=== PATIENT | male | born 1945 | race Caucasian/White ===

== ENCOUNTER 2019-05-03 08:49 | Observation (INO) | payer MEDICARE, BC ==
[2019-05-03] MEDS ORDERED: SODIUM CHLORIDE 0.9% 1,000 ML IV STA ×2 (09:12)
--- NOTE | 2019-05-03 09:16 | ED ---
Chest Pain HPI - General Chief Complaint: Chest Pain Stated Complaint: Chest Pain Time Seen by Provider: 05/03/19 08:59 Source: patient, RN notes reviewed, old records reviewed Mode of arrival: wheelchair Limitations: no limitations - History of Present Illness Initial Comments: Patient is a 73-year-old male presents emergency department today for evaluation with complaints of chest pain. He states that he can a sharp episode of chest pain this morning around 6 AM. Patient portably was having some chest pain specifically in the mornings for the past week. He did not tell his until this morning. Patient states he did take an aspirin today after he had this episode chest pain. He also recently was wearing a Holter monitor, and is scheduled for a stress test on Saturday by Dr. Miller. Patient states that upon arriving to emergency department his chest pain is diminishing at this time he rated a 0 out of 10. He also complains of some occasional shortness of breath episodes, which she just attributed to ALLERGIES. Patient states that he has had no previous personal cardiac history of stenting or CAD. Patient has a positive family history for heart disease, former smoker. - Related Data Allergies Allergy/AdvReac Type Severity Reaction Status Date / Time No Known Allergies Allergy Verified 05/03/19 08:57 Review of Systems ROS Statement: Those systems with pertinent positive or pertinent negative responses have been documented in the HPI. ROS Other: All systems not noted in ROS Statement are negative. EKG Findings - EKG Comments: EKG Findings:: Marked sinus bradycardia with PACs left axis deviation. Abnormal EKG noted. Ventricular rate of 45 bpm. UT interval 170 ms. Frustration 106 most seconds pre-QT QTc is 440/380 ms. Past Medical History Past Medical History: Cancer, Dementia, Thyroid Disorder Additional Past Medical History / Comment(s): THROAT CANCER IN PAST, BRADYCARDIA History of Any Multi-Drug Resistant Organisms: None Reported Past Surgical History: Hernia Repair Past Psychological History: No Psychological Hx Reported Smoking Status: Former smoker Past Alcohol Use History: None Reported Past Drug Use History: None Reported General Exam - General Exam Comments Initial Comments: Alert and oriented pleasant 73-year-old male. No distress. General: Well appearing, well nourished, in no distress. Oriented x 3, normal mood and affect . Patient has a history of early stage Alzheimer's disease. Patient's does answer majority of questions for him. Skin: Good turgor, no rash, unusual bruising or prominent lesions Hair: Normal texture and distribution. HEENT: Head: Normocephalic, atraumatic, no visible or palpable masses, depr essions, or scaring. Eyes: Visual acuity intact, conjunctiva clear, sclera non-icteric, EOM intact, PERRL. Ears: EACs clear, TMs translucent & cone of light visualized. hearing intact. Nose: No external lesions, mucosa non-inflamed, septum and turbinates normal Mouth: Mucous membranes moist, no mucosal lesions. Teeth/Gums: No obvious caries or periodontal disease. No gingival inflammation or significant resorption. Pharynx: Mucosa non-inflamed, no tonsillar hypertrophy or exudate Neck: Supple, without lesions, bruits, or adenopathy, thyroid non-enlarged and non-tender Heart: No cardiomegaly or thrills; regular rate and rhythm, no murmur or gallop Lungs: Clear to auscultation and percussion Abdomen: Bowel sounds normal, no tenderness, organomegaly, masses, or hernia Extremities: No amputations or deformities, cyanosis, edema or varicosities, peripheral pulses intact Musculoskeletal: Normal gait and station. No misalignment, asymmetry, crepitation, defects, tenderness, masses, effusions, decreased range of motion, instability, atrophy or abnormal strength or tone in the head, neck, spine, ribs, pelvis or extremities. Neurologic: CN 2-12 normal. Sensation to pain, touch, and proprioception normal. DTRs normal in upper and lower extremities. No pathologic reflexes. Psychiatric: Oriented X3, intact recent and remote memory, judgment and insight, normal mood and affect. Limitations: no limitations Course Vital Signs 05/03/19 08:53 Temperature 98.1 F Pulse Rate 50 L Respiratory 16 Rate Blood Pressure 150/79 O2 Sat by Pulse 96 Oximetry Chest Pain MDM - MDM 73-year-old male presents emergency department today with squeezing-like chest pain starting at 6 AM. He reports he's been having some intermittent episodes of chest pain for the past week but not severe as today's exam. He did take aspirin prior to arrival. Upon arriving to emergency department his chest pain diminished to 0 out of 10. He does have a history of bradycardia, he follows with Dr. Miller. Had a recent Holter monitor, and is scheduled for a stress test next Saturday. Patient's EKG at this time shows bradycardia, with no ST changes. He denies any dizziness or lightheadedness at this time. Denies any diaphoresis. He did complain of some mild nausea. He denies any abdominal pain. Patient's lungs are clear, abdomen soft nontender. Bradycardia rhythm noted on cardiac exam. Patient's mother does relate that he has a history of Alzheimer's disease. Chest x-rays has evidence of COPD. The patient's concern of episodic squeezing-like chest pain I will start the Patient on heparin for concern for unstable angina. Repeat cardiac enzymes will be completed. His initial troponin is negative. Patient will be admitted with consult to Dr. Miller. Discussed case with Dr. Lanza we'll discuss case with Dr. Garcia. Disposition Clinical Impression: Unstable angina, Alzheimer's dementia Disposition: ADMITTED IP TO THIS HOSP Condition: Stable Is patient prescribed a controlled substance at d/c from ED?: No Referrals: Katherine Garcia MD [Primary Care Provider] - 1-2 days Time of Disposition: 10:47
--- NOTE | 2019-05-03 09:28 | XR ---
EXAMINATION TYPE: XR chest 2V DATE OF EXAM: 05/03/2019 HISTORY: Chest Pain. REFERENCE: NONE. FINDINGS: From. Heart size upper limits of normal. The lungs are clear. Pleural space are clear. IMPRESSION: COPD.
[2019-05-03 09:40] LABS: Basophils % (A) 1 %; Eosinophils # (A) 0.3 k/uL (0-0.7); Eosinophils % (A) 7 %; HCT 41.6 % (39.0-53.0); HGB 13.5 gm/dL (13.0-17.5); Lymphocytes # (A) 1.3 k/uL (1.0-4.8); Lymphocytes % (A) 30 %; MCH 29.9 pg (25.0-35.0); MCHC 32.4 g/dL (31.0-37.0); MCV 92.2 fL (80.0-100.0); Mean Platelet Volume 7.4; Monocytes # (A) 0.4 k/uL (0-1.0); Monocytes % (A) 9 %; Neutrophils # (A) 2.2 k/uL (1.3-7.7); Neutrophils % (A) 49 %; Platelet Count 209 k/uL (150-450); RBC 4.51 m/uL (4.30-5.90); WBC 4.4 k/uL (3.8-10.6)
[2019-05-03 09:48] LABS: INR 0.9 (<1.2); Partial Thromboplastin Time 24.2 sec (22.0-30.0)
[2019-05-03 09:49] LABS: ALT 34 U/L (21-72); AST 31 U/L (17-59); African American GFR (CKD) >90 (>60 ml/min/1.73 sqM); Albumin 3.8 g/dL (3.5-5.0); Alkaline Phosphatase 86 U/L (38-126); Anion Gap 8 mmol/L; Blood Urea Nitrogen 14 mg/dL (9-20); Calcium 9.5 mg/dL (8.4-10.2); Carbon Dioxide 27 mmol/L (22-30); Chloride 106 mmol/L (98-107); Glucose 87 mg/dL (74-99); Magnesium 1.8 mg/dL (1.6-2.3); Potassium 4.3 mmol/L (3.5-5.1); Sodium 141 mmol/L (137-145); Total Protein 6.4 g/dL (6.3-8.2)
[2019-05-03 10:48] LABS: T4, Free (Free Thyroxine) 2.01 ng/dL (0.78-2.19)
[2019-05-03] MEDS ORDERED: NITROGLYCERIN SL TABS 0.4 MG TAB SUBLINGUAL PRN (10:48)
[2019-05-03] MEDS ORDERED: HEPARIN SODIUM,PORCINE 5,000 UNIT/ML 1 ML VIAL IV ONE (10:48)
[2019-05-03] MEDS ORDERED: HEPARIN SOD,PORK IN 0.45% NACL 25,000 UNIT in 0.45% NACL 1 250ML.BAG IV SCH (11:00)
[2019-05-03 19:55] VITALS: RESP 18
[2019-05-03] MEDS ORDERED: HEPARIN SODIUM,PORCINE 5,000 UNIT/ML 1 ML VIAL IV PRN (20:01)
--- NOTE | 2019-05-03 20:31 | P.HPIM ---
History of Present Illness H&P Date: 05/03/19 Chief Complaint: Chest pain This is 73 years old male who presented to the emergency department with new onset chest pain. Patient had couple episodes of brief chest pain happened on rest in the last week and was seen by braddisher who recommended Holter monitor but patient stated that as he was not accurate and eating with Holter monitor decision was made to proceed with stress test that was scheduled for next Saturday. This morning 30 a.m. patient woke up with significant chest pain located to the left breast area without radiation or nausea patient denied diaphoresis or shortness of breath got up to the bathroom with some walking inside the house where his chest pain improved and when he was discussing the pain with his around 6 AM patient started experiencing recurrent chest pain but located to the mediastinum that caused him a lot of discomfort as he me ntioned as he described it as a heaviness and somebody sitting on the chest with feeding nauseous but no radiation to the left arm or to the left jaw patient denied any shortness of breath and states after walking to his car he was pain- free but continued to the emergency department for further evaluation. Patient had significant past medical history for cardiac disease in both siblings all had coronary artery disease and early ages. Patient is former smoker who quit 2 years ago and not sure if he has history of COPD. Patient denied heavy drinking or drugs. and daughter at the bedside who stated that the patient has been recently experiencing some memory issues and was diagnosed with early dementia. Family is concerned that patient might have heart disease and would like to have immediate evaluation without delay and stress testing if possible as it was scheduled by braddisher on outpatient basis. Patient currently is denying chest pain, shortness breath, nausea, vomiting, abdominal pain, dizziness, lightheadedness or blurry vision Review of Systems All 14 systems reviewed and negative except as above Past Medical History Past Medical History: Cancer, Dementia, Thyroid Disorder Additional Past Medical History / Comment(s): THROAT CANCER IN PAST, BRADYCARDIA History of Any Multi-Drug Resistant Organisms: None Reported Past Surgical History: Hernia Repair Past Psychological History: No Psychological Hx Reported Smoking Status: Former smoker Past Alcohol Use History: None Reported Past Drug Use History: None Reported Medications and Allergies Home Medications Medication Instructions Recorded Confirmed Type Citalopram Hydrobromide [CeleXA] 20 mg PO DAILY 05/03/19 05/03/19 History Galantamine HBr [Razadyne] 4 mg PO DAILY 05/03/19 05/03/19 History Levothyroxine Sodium [Synthroid] 200 mcg PO DAILY 05/03/19 05/03/19 History Multivitamins, Thera [Multivitamin 1 tab PO DAILY 05/03/19 05/03/19 History (formulary)] Nabumetone [Relafen] 750 mg PO DAILY 05/03/19 05/03/19 History Omeprazole [PriLOSEC] 20 mg PO DAILY 05/03/19 05/03/19 History Saw Mccoy 160 mg PO DAILY 05/03/19 05/03/19 History Turmeric Root Extract [Turmeric] 1,053 mg PO DAILY 05/03/19 05/03/19 History Allergies Allergy/AdvReac Type Severity Reaction Status Date / Time No Known Allergies Allergy Verified 05/03/19 12:00 Physical Exam Vitals: Vital Signs Temp Pulse Resp BP Pulse Ox 05/03/19 19:54 55 L 18 135/77 100 05/03/19 16:05 47 L 16 143/93 96 05/03/19 13:54 66 16 146/84 98 05/03/19 12:49 48 L 14 133/122 95 05/03/19 12:30 48 L 14 133/122 95 05/03/19 12:00 53 L 15 157/89 92 L 05/03/19 11:30 46 L 15 170/94 96 05/03/19 11:00 48 L 18 141/82 98 05/03/19 10:30 44 L 7 L 152/87 97 05/03/19 10:00 45 L 12 159/123 97 05/03/19 09:30 44 L 22 177/91 98 05/03/19 09:01 96 05/03/19 08:53 98.1 F 50 L 16 150/79 96 Intake and Output 05/03/19 05/03/19 05/03/19 06:59 14:59 22:59 Intake Total 72.304 Balance 72.304 Intake: Intake, IV Titration 72.304 Amount Heparin Sod,Pork in 0.45% 72.304 NaCl 25,000 unit In 0.45 % NaCl 1 250ml.bag @ 11. 36 UNITS/KG/HR 9.996 mls/ hr IV .Q24H [facility] Rx#: [id number] Other: Weight 87.997 kg Physical exam HEENT atraumatic normocephalic. PERRLA Lungs clear to auscultation bilaterally Heart normal S1-S2 Abdomen soft no tenderness plus falls. 4 quadrant Lower extremity no edema Skin no new rash Psych alert and oriented 3 Neuro no focal deficit Results CBC & Chem 7: 05/03/19 09:16 05/03/19 09:16 Labs: Abnormal Lab Results - Last 24 Hours (Table) 05/03/19 05/03/19 Range/Units 09:16 18:26 APTT 45.1 H (22.0-30.0) sec TSH 0.183 L (0.465-4.680) mIU/L Assessment and Plan Assessment: 1. Chest pain, atypical. 2. Sinus bradycardia without evidence of block on current EKG with heart rate in the mid 40s. 3. Recurrent chest pain in 1 week 3 times. 4. Early dementia. 5. Hypothyroidism with low TSH. 6. Anxiety and depression. Plan discussed with patient and his family at the bedside where we would like to start patients on heparin drip per ER physician orders and would like to consult cardiology for further evaluation for possible stress testing in the morning as patient at intermediate risk and may benefit from chemical testing as he failed treadmill testing in the past. Consideration for cardiac catheterization to be taken by cardiology. Patient also may benefit from further evaluation for his sinus bradycardia but patient denied any symptoms related to bradycardia at this point and I would like to increase his dose of Synthroid at the time of the discharge have patient's follow-up with his primary care physician outpatient. Discharge planning based on clinical progress
[2019-05-03 20:38] VITALS: BMI 27.8
[2019-05-04 02:22] LABS: Mean Platelet Volume 7.5; Platelet Count 182 k/uL (150-450)
[2019-05-04 03:24] LABS: Cholesterol 157 mg/dL (<200); HDL Cholesterol 56 mg/dL (40-60); LDL Cholesterol,Calculated 74 mg/dL (0-99); Triglycerides 134 mg/dL (<150)
[2019-05-04 08:01] VITALS: TEMP 97.5
[2019-05-04] MEDS ORDERED: ASPIRIN 325 MG TAB PO SCH (09:00)
--- NOTE | 2019-05-04 10:41 | P.CRDCN ---
History of Present Illness History of present illness: This is a pleasant 73-year-old male past medical history significant for throat cancer, hypothyroidism, chronic sinus bradycardia and dementia. He follows in the office with Dr. Miller. We have been asked to see him in consultation secondary to chest discomfort. He states he woke up Saturday evening around 3 AM with a sharp pain in his chest that radiated across from the right to the left and lasted approximately 15 seconds. This was very brief and subsided on its own. He woke up and walked downstairs took an aspirin and was able to fall back asleep with no significant recurrence of chest discomfort. He is seen and examined resting comfortably in bed in no acute distress. He's had no further symptoms of chest discomfort. He denies radiation of the pain to the arm, back, neck or jaw. He denies associated shortness of breath, dizziness, nausea, vomiting, palpitations or diaphoresis. He is scheduled in the office to undergo stress testing on Saturday of this week. He also complains of waking up with nausea for the last couple of weeks. He did have some outpatient testing performed at [facility] and his has the reports revealing a large hiatal hernia with calcifications noted in the aorta. EKG reveals sinus bradycardia heart rate of 45. Chest x-ray is negative for an acute cardiopulmonary process with evidence of underlying COPD. Laboratory data reviewed, WBC 4.4, hemoglobin 13.5, platelets 182, sodium 141, potassium 4.3, creatinine 0.91, magnesium 1.8, cardiac enzymes negative 3, LDL 74 and TSH 0.183. He currently takes no daily cardiac medications. Most recent echocardiogram obtained in the office June 2018 revealed preserved LV systolic function. At the time of my exam: CONSTITUTIONAL: Denies fever. Denies chills. EYES: Denies blurred vision. Denies vision changes. Denies eye pain. EARS, NOSE, MOUTH & THROAT: Denies headache. Denies sore throat. Denies ear pain. CARDIOVASCULAR: Denies chest pain. Denies shortness of breath. Denies orthopnea. Denies PND. Denies palpitations. RESPIRATORY: Denies cough. GASTROINTESTINAL: Denies abdominal pain. Denies diarrhea. Denies constipation. Denies nausea. Denies vomiting. MUSCULOSKELETAL: Denies myalgias. INTEGUMENTARY: Denies pruitis. Denies rash. NEUROLOGIC: Denies numbness. Denies tingling. Denies weakness. PSYCHIATRIC: Denies anxiety. Denies depression. ENDOCRINE: Denies fatigue. Denies weight change. Denies polydipsia. Denies polyurina. GENITOURINARY: Denies burning, hematuria or urgency with micturation. HEMATOLOGIC: Denies history of anemia. Denies bleeding. Blood pressure 162/89 heart rate 55 afebrile maintaining oxygen saturation on room air GENERAL: This is a 73-year-old male in no apparent distress at the time of my examination. HEENT: Head is atraumatic, normocephalic. Pupils are equal, round. Sclerae anicteric. Conjunctivae are clear. Mucous membranes of the mouth are moist. Neck is supple. There is no jugular venous distention. No carotid bruit is heard. LUNGS: Clear to auscultation no wheezes, rales or rhonchi. No chest wall tend erness is noted on palpation or with deep breathing. HEART: Regular rate and rhythm without murmurs, rubs or gallops. S1 and S2 heard. ABDOMEN: Soft, nontender. Bowel sounds are heard. No organomegaly noted. EXTREMITIES: No evidence of peripheral edema and no calf tenderness noted. VASCULAR: Radial and dorsalis pedis pulses palpated, no evidence of clubbing. NEUROLOGIC: Patient is awake, alert and oriented x3. ASSESSMENT Chest pain, atypical for angina. An acute coronary event has been ruled out. History of throat cancer s/p radiation Hypothyroidism Hital hernia Family history of premature cardiac disease in his siblings. PLAN An acute coronary event has been ruled out. Discontinue IV heparin infusion. Increase activity and ambulation in the halls. Assess for exertional chest discomfort. If asymptomatic he may be discharged home. We have called the office and moved up his stress test to tomorrow morning at 0715. Add small dose of atorvastatin for cardio-protective purposes. Thank you kindly for this consultation. Nurse Practitioner note has been reviewed, I agree with a documented findings and plan of care. Patient was seen and examined. Past Medical History Past Medical History: Cancer, Dementia, Thyroid Disorder Additional Past Medical History / Comment(s): THROAT CANCER IN PAST, BRADYCARDIA History of Any Multi-Drug Resistant Organisms: None Reported Past Surgical History: Hernia Repair Past Anesthesia/Blood Transfusion Reactions: No Reported Reaction Smoking Status: Former smoker Medications and Allergies Home Medications Medication Instructions Recorded Confirmed Type Citalopram Hydrobromide [CeleXA] 20 mg PO DAILY 05/03/19 05/03/19 History Galantamine HBr [Razadyne] 4 mg PO DAILY 05/03/19 05/03/19 History Levothyroxine Sodium [Synthroid] 200 mcg PO DAILY 05/03/19 05/03/19 History Multivitamins, Thera [Multivitamin 1 tab PO DAILY 05/03/19 05/03/19 History (formulary)] Nabumetone [Relafen] 750 mg PO DAILY 05/03/19 05/03/19 History Omeprazole [PriLOSEC] 20 mg PO DAILY 05/03/19 05/03/19 History Saw Marshall 160 mg PO DAILY 05/03/19 05/03/19 History Turmeric Root Extract [Turmeric] 1,053 mg PO DAILY 05/03/19 05/03/19 History Allergies Allergy/AdvReac Type Severity Reaction Status Date / Time No Known Allergies Allergy Verified 05/03/19 20:31 Physical Exam Vitals: Vital Signs Temp Pulse Pulse Resp BP BP Pulse Ox 05/04/19 07:10 97.5 F L 55 L 18 162/89 99 05/04/19 03:45 97.4 F L 47 L 16 137/78 97 05/03/19 23:56 97.6 F 42 L 16 116/68 97 05/03/19 20:35 97.4 F L 47 L 16 131/80 97 05/03/19 20:27 98.1 F 55 L 18 135/77 100 05/03/19 19:54 55 L 18 135/77 100 05/03/19 16:05 47 L 16 143/93 96 05/03/19 13:54 66 16 146/84 98 05/03/19 12:49 48 L 14 133/122 95 05/03/19 12:30 48 L 14 133/122 95 05/03/19 12:00 53 L 15 157/89 92 L 05/03/19 11:30 46 L 15 170/94 96 05/03/19 11:00 48 L 18 141/82 98 05/03/19 10:30 44 L 7 L 152/87 97 05/03/19 10:00 45 L 12 159/123 97 05/03/19 09:30 44 L 22 177/91 98 05/03/19 09:01 96 05/03/19 08:53 98.1 F 50 L 16 150/79 96 Intake and Output 05/03/19 05/04/19 05/04/19 22:59 06:59 14:59 Intake Total 72.304 Balance 72.304 Intake: Intake, IV Titration 72.304 Amount Heparin Sod,Pork in 0.45% 72.304 NaCl 25,000 unit In 0.45 % NaCl 1 250ml.bag @ 11. 36 UNITS/KG/HR 9.996 mls/ hr IV .Q24H [facility] Rx#: [id number] Other: # Voids 1 Results 05/04/19 02:11 05/03/19 09:16 Cardiac Enzymes 05/03/19 05/03/19 05/03/19 Range/Units 09:16 09:16 15:15 AST 31 (17-59) U/L Troponin I <0.012 <0.012 (0.000-0.034) ng/mL 05/03/19 Range/Units 21:16 AST (17-59) U/L Troponin I <0.012 (0.000-0.034) ng/mL Coagulation 05/03/19 05/03/19 05/04/19 Range/Units 09:16 18:26 02:11 PT 10.0 (9.0-12.0) sec APTT 24.2 45.1 H 74.9 H (22.0-30.0) sec Lipids 05/04/19 Range/Units 02:11 Triglycerides 134 (<150) mg/dL Cholesterol 157 (<200) mg/dL HDL Cholesterol 56 (40-60) mg/dL CBC 05/03/19 05/04/19 Range/Units 09:16 02:11 WBC 4.4 (3.8-10.6) k/uL RBC 4.51 (4.30-5.90) m/uL Hgb 13.5 (13.0-17.5) gm/dL Hct 41.6 (39.0-53.0) % Plt Count 209 182 (150-450) k/uL Comprehensive Metabolic Panel 05/03/19 Range/Units 09:16 Sodium 141 (137-145) mmol/L Potassium 4.3 (3.5-5.1) mmol/L Chloride 106 (98-107) mmol/L Carbon Dioxide 27 (22-30) mmol/L BUN 14 (9-20) mg/dL Creatinine 0.91 (0.66-1.25) mg/dL Glucose 87 (74-99) mg/dL Calcium 9.5 (8.4-10.2) mg/dL AST 31 (17-59) U/L ALT 34 (21-72) U/L Alkaline Phosphatase 86 (38-126) U/L Total Protein 6.4 (6.3-8.2) g/dL Albumin 3.8 (3.5-5.0) g/dL Current Medications Generic Name Dose Route Start Last Admin Trade Name Freq PRN Reason Stop Dose Admin Aspirin 325 mg 05/04/19 09:00 Aspirin PO DAILY [facility] Heparin Sodium (Porcine) 0 unit 05/03/19 20:01 05/03/19 20:03 Heparin IV 2,200 unit PER PROTOCOL PRN Administration Low PTT Protocol Heparin Sodium/Sodium Chloride 250 mls @ 9.996 mls/hr 05/03/19 11:00 05/03/19 19:55 25,000 unit/ Sodium Chloride IV 13.63 units/kg/hr .Q24H [facility] 11.996 mls/hr Titration Protocol 11.36 UNITS/KG/HR Nitroglycerin 0.4 mg 05/03/19 10:48 Nitrostat SUBLINGUAL Q5M PRN Chest Pain Intake and Output 05/03/19 05/04/19 05/04/19 22:59 06:59 14:59 Intake Total 72.304 Balance 72.304 Intake: Intake, IV Titration 72.304 Amount Heparin Sod,Pork in 0.45% 72.304 NaCl 25,000 unit In 0.45 % NaCl 1 250ml.bag @ 11. 36 UNITS/KG/HR 9.996 mls/ hr IV .Q24H [facility] Rx#: [id number] Other: # Voids 1 05/04/19 02:11 05/03/19 09:16
[2019-05-04 11:31] VITALS: BP 142/85; PULSE 53
--- NOTE | 2019-05-04 12:43 | P.DS ---
Providers Date of admission: 05/03/19 10:44 Expected date of discharge: 05/04/19 Attending physician: Katherine Garcia Consults: 05/03/19 10:49 Consult Physician Urgent Consulting Provider: Latisha Miller Consult Reason/Comments: unstable angina Do you want consulting provider notified?: Yes Primary care physician: [facility] Course: This is 73 years old male who presented to the emergency department with new onset chest pain. Patient had couple episodes of brief chest pain happened on rest in the last week and was seen by spanish moss picker who recommended Holter yinka tor but patient stated that as he was not accurate and eating with Holter monitor decision was made to proceed with stress test that was scheduled for next Saturday. This morning 30 a.m. patient woke up with significant chest pain located to the left breast area without radiation or nausea patient denied diaphoresis or shortness of breath got up to the bathroom with some walking inside the house where his chest pain improved and when he was discussing the pain with his around 6 AM patient started experiencing recurrent chest pain but located to the mediastinum that caused him a lot of discomfort as he mentioned as he described it as a heaviness and somebody sitting on the chest with feeding nauseous but no radiation to the left arm or to the left jaw patient denied any shortness of breath and states after walking to his car he was pain-free but continued to the emergency department for further evaluation. Patient had significant past medical history for cardiac disease in both sibli ngs all had coronary artery disease and early ages. Patient is former smoker who quit 2 years ago and not sure if he has history of COPD. Patient denied heavy drinking or drugs. and daughter at the bedside who stated that the patient has been recently experiencing some memory issues and was diagnosed with early dementia. Family is concerned that patient might have heart disease and would like to have immediate evaluation without delay and stress testing if possible as it was scheduled by spanish moss picker on outpatient basis. Patient currently is denying chest pain, shortness breath, nausea, vomiting, abdominal pain, dizziness, lightheadedness or blurry vision. 05/04: Patient has been seen by cardiology with plan for discharge home and he has appointment tomorrow morning for a Lexiscan stress test in the office. Patient is pain-free at this time. Patient will be discharged home in stable condition. Discharge diagnoses: 1. Chest pain, atypical. 2. Sinus bradycardia without evidence of block on current EKG with heart rate in the mid 40s. 3. Recurrent chest pain in 1 week 3 times. 4. Early dementia. 5. Hypothyroidism with low TSH. 6. Underlying anxiety disorder, recurrent depression. Discharge plan: Home Impression and plan of care have been directed as dictated by the signing physician. Thuy Serrano nurse practitioner acting as scribe for signing physician. Patient Condition at Discharge: Good Plan - Discharge Summary New Discharge Prescriptions: New Atorvastatin [Lipitor] 20 mg PO DAILY #90 tablet Continue Turmeric Root Extract [Turmeric] 1,053 mg PO DAILY Multivitamins, Thera [Multivitamin (formulary)] 1 tab PO DAILY Omeprazole [PriLOSEC] 20 mg PO DAILY Nabumetone [Relafen] 750 mg PO DAILY Galantamine HBr [Razadyne] 4 mg PO DAILY Citalopram Hydrobromide [CeleXA] 20 mg PO DAILY Levothyroxine Sodium [Synthroid] 200 mcg PO DAILY Saw Neavitt 160 mg PO DAILY Discharge Medication List Citalopram Hydrobromide [CeleXA] 20 mg PO DAILY 05/03/19 [History] Galantamine HBr [Razadyne] 4 mg PO DAILY 05/03/19 [History] Levothyroxine Sodium [Synthroid] 200 mcg PO DAILY 05/03/19 [History] Multivitamins, Thera [Multivitamin (formulary)] 1 tab PO DAILY 05/03/19 [History] Nabumetone [Relafen] 750 mg PO DAILY 05/03/19 [History] Omeprazole [PriLOSEC] 20 mg PO DAILY 05/03/19 [History] Saw Neavitt 160 mg PO DAILY 05/03/19 [History] Turmeric Root Extract [Turmeric] 1,053 mg PO DAILY 05/03/19 [History] Atorvastatin [Lipitor] 20 mg PO DAILY #90 tablet 05/04/19 [Rx] Follow up Appointment(s)/Referral(s): Latisha Miller MD [STAFF PHYSICIAN] - 05/05/19 7:15 am (Stress test schedule tomorrow in the office at 0715, NPO after midnight, no caffeine after 7 pm tonight. ) Katherine Garcia MD [Primary Care Provider] - 1 Week Activity/Diet/Wound Care/Special Instructions: josue scheduled for tomorrow-- April at 7:15 at [facility]. Nothing to eat or drink after midnight tonight (05/04/19). no caffeine 12 hours prior to test. Discharge Disposition: HOME SELF-CARE
--- NOTE | 2019-05-04 18:56 | ECHOF ---
Referral Reason: MEASUREMENTS -------- HEIGHT: 180.3 cm WEIGHT: 88.0 kg BP: 162/89 IVSd: 1.2 cm (0.6 - 1.1) LVIDd: 4.9 cm (3.9 - 5.3) LVPWd: 1.2 cm (0.6 - 1.1) IVSs: 1.9 cm LVIDs: 2.6 cm LVPWs: 2.0 cm RVIDd: 3.8 cm (< 3.3) LAESV Index (A-L): 36.24 ml/m Ao Diam: 2.7 cm (2.0 - 3.7) LA Diam: 3.8 cm (2.7 - 3.8) AV Cusp: 2.2 cm (1.5 - 2.6) EPSS: 0.8 cm MV E Pelon: 0.56 m/s MV DecT: 337 ms MV A Pelon: 0.54 m/s MV E/A Ratio: 1.05 RAP: 5.00 mmHg RVSP: 25.25 mmHg MV EF SLOPE: 94.73 mm/s (70 - 150) MV EXCURSION: 15.97 mm (> 18.000) FINDINGS -------- Sinus rhythm. This was a technically good study. The left ventricular size is normal. There is mild concentric left ventricular hypertrophy. Overa ll left ventricular systolic function is normal with, an EF between 55 - 60 %. The right ventricle is mild to moderately enlarged. LA is moderately dilated 34-39 ml/m2 The right atrial size is normal. Interatrial and interventricular septum intact. The aortic valve is trileaflet and appears structurally normal. The mitral valve is normal. The mitral valve leaflets are mildly thickened. [id number] mitr al regurgitation is present. Mild tricuspid regurgitation present. There is no evidence of pulmonary hypertension. The right v entricular systolic pressure, as measured by Doppler, is 25.25mmHg. There is no pulmonic regurgitation present. The aortic root size is normal. Normal inferior vena cava with normal inspiratory collapse consistent with estimated right atrial pre ssure of 5 mmHg. There is no pericardial effusion. CONCLUSIONS -------- 1. Sinus rhythm. 2. This was a technically good study. 3. The left ventricular size is normal. 4. There is mild concentric left ventricular hypertrophy. 5. Overall left ventricular systolic function is normal with, an EF between 55 - 60 %. 6. The right ventricle is mild to moderately enlarged. 7. LA is moderately dilated 34-39 ml/m2 8. The right atrial size is normal. 9. Interatrial and interventricular septum intact. 10. The aortic valve is trileaflet and appears structurally normal. 11. The mitral valve is normal. 12. The mitral valve leaflets are mildly thickened. 13. Hkti-ub-buoqaome mitral regurgitation is present. 14. Mild tricuspid regurgitation present. 15. There is no evidence of pulmonary hypertension. 16. The right ventricular systolic pressure, as measured by Doppler, is 25.25mmHg. 17. There is no pulmonic regurgitation present. 18. The aortic root size is normal. 19. Normal inferior vena cava with normal inspiratory collapse consistent with estimated right atrial pressure of 5 mmHg. 20. There is no pericardial effusion. DIETARY AIDE: Franny Matthew RDCS
[2019-05-05] MEDS ORDERED: ASPIRIN 81 MG PO SCH (09:00)
== END 2019-05-04 13:00 | disposition home or self-care (01) ==
LOC: EC 08:49 → 1SOBS 10:44
PROVIDERS: ADMIT Family Medicine; ATTEND Family Medicine
DX: R07.89 Other chest pain (principal); R00.1 Bradycardia, unspecified; G30.0 Alzheimer's disease with early onset; F02.80 Dementia in other diseases classified elsewhere, unspecified severity, without behavioral disturbance, psychotic disturbance, mood disturbance, and anxiety; E89.0 Postprocedural hypothyroidism; F41.9 Anxiety disorder, unspecified; F33.9 Major depressive disorder, recurrent, unspecified; R11.0 Nausea; J44.9 Chronic obstructive pulmonary disease, unspecified; K44.9 Diaphragmatic hernia without obstruction or gangrene; R94.31 Abnormal electrocardiogram [ECG] [EKG]; Z79.890 Hormone replacement therapy; Z79.899 Other long term (current) drug therapy; Z79.1 Long term (current) use of non-steroidal anti-inflammatories (NSAID); Z92.3 Personal history of irradiation; Z85.819 Personal history of malignant neoplasm of unspecified site of lip, oral cavity, and pharynx; Z87.891 Personal history of nicotine dependence; Z82.49 Family history of ischemic heart disease and other diseases of the circulatory system
CPT/HCPCS: 36415; 71046; 80053; 80061; 83735; 83880; 84439; 84443; 84484; 85025; 85049; 85610; 85730; 93005; 93306; 96365; 96366; 96376; 99285

== ENCOUNTER → 2022-09-04 | Outpatient (CLI) | payer MEDICARE ==
[2022-09-04 14:18] LABS: Basophils # (A) 0.02 X 10*3/uL (0.00-0.10); Basophils % (A) 0.4 %; Eosinophils # (A) 0.27 X 10*3/uL (0.04-0.35); Eosinophils % (A) 4.9 %; HCT 38.4 % (39.6-50.0); HGB 12.6 g/dL (13.0-17.0); Immature Grans, Automated 0.2 %; Lymphocytes # (A) 2.45 X 10*3/uL (0.90-5.00); Lymphocytes % (A) 44.5 %; MCH 30.8 pg (27.0-32.0); MCHC 32.8 g/dL (32.0-37.0); MCV 93.9 fL (80.0-97.0); Mean Platelet Volume 10.8 fL (9.5-12.2); Monocytes # (A) 0.62 X 10*3/uL (0.20-1.00); Monocytes % (A) 11.3 %; NRBC Per 100 WBC 0 /100 WBCS (0.0-0.0); Neutrophils # (A) 2.14 X 10*3/uL (1.80-7.70); Neutrophils % (A) 38.7 %; Platelet Count 160 X 10*3/uL (140-440); RBC 4.09 X 10*6/uL (4.40-5.60); RDW 13.6 % (11.5-14.5); WBC 5.51 X 10*3/uL (4.50-10.00)
[2022-09-04 14:27] LABS: Appearance,Urine Clear (Clear); Bilirubin,Urine Negative (Negative); Blood,Urine Negative (Negative); Color,Urine Yellow (Yellow); Ketones,Urine Negative (Negative); Nitrite,Urine Negative (Negative); Specific Gravity,Urine 1.009 (1.001-1.030); Urobilinogen,Urine 0.2 (0.2,1.0)
[2022-09-04 14:33] LABS: African American GFR (CKD) 101.3 (60.0-200.0); Anion Gap 5.5 mmol/L (10.00-18.00); BUN/Creat Ratio 20.75 Ratio (12.00-20.00); Blood Urea Nitrogen 16.6 mg/dL (9.0-27.0); Calcium 9.4 mg/dL (8.7-10.3); Carbon Dioxide 28.5 mmol/L (20.0-27.5); Non-African American GFR(CKD) 87.4 (60.0-200.0); Potassium 4.8 mmol/L (3.5-5.5)
== END | disposition home or self-care (01) ==
LOC: LABPAT 09:39
PROVIDERS: ATTEND Urology
DX: Z01.812 Encounter for preprocedural laboratory examination (principal); N43.3 Hydrocele, unspecified; R31.29 Other microscopic hematuria
CPT/HCPCS: 80048; 81003; 85025

== ENCOUNTER 2022-09-12 09:59 | Day surgery (SDC) | payer MEDICARE ==
[2022-09-11 13:13] VITALS: BMI 24.0
--- NOTE | 2022-09-11 15:30 | P.GSHP ---
History of Present Illness H&P Date: 09/11/22 77 yo male with a left hydrocele who comes for a left hydrocelectomy. Risks and alternatives have been discussed. - Constitutional Constitutional: Denies chills, Denies fever - EENT Eyes: denies blurred vision, denies pain Ears, nose, mouth and throat: Denies headache, Denies sore throat - Cardiovascular Cardiovascular: Denies chest pain, Denies shortness of breath - Respiratory Respiratory: Denies cough, Denies 7 - Gastrointestinal Gastrointestinal: Denies abdominal pain, Denies diarrhea, Denies nausea, Denies vomiting - Genitourinary (Female) Genitourinary: Denies dysuria, Denies hematuria - Genitourinary (Male) Genitourinary: Denies dysuria, Denies hematuria - Musculoskeletal Musculoskeletal: Denies myalgias - Integumentary Integumentary: Denies pruritus, Denies rash - Neurological Neurological: Denies numbness, Denies weakness - Psychiatric Psychiatric: Denies anxiety, Denies depression - Endocrine Endocrine: Denies fatigue, Denies weight change 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-has difficulty swallowing at times, recommended thickit for fluids but refuses to use it, selvin TANGIRNAQ-no hearing aides, BRADYCARDIA History of Any Multi-Drug Resistant Organisms: None Reported Past Surgical History: Hernia Repair Additional Past Surgical History / Comment(s): tumor removed from throat,hydrocele,sreedhar cataracts Past Anesthesia/Blood Transfusion Reactions: No Reported Reaction, Motion Sickness Smoking Status: Former smoker - Past Family History Mother Family Medical History: No Reported History Medications and Allergies Home Medications Medication Instructions Recorded Confirmed Type Citalopram Hydrobromide [CeleXA] 20 mg PO QAM 05/03/19 09/11/22 History Levothyroxine Sodium [Synthroid] 250 mcg PO HS 05/03/19 09/11/22 History Turmeric Root Extract [Turmeric] 500 mg PO DAILY 05/03/19 09/11/22 History Atorvastatin [Lipitor] 20 mg PO DAILY #90 tablet 05/04/19 09/11/22 Rx Cyanocobalamin [Vitamin B-12] 500 mcg PO DAILY 09/11/22 09/11/22 History Losartan Potassium [Cozaar] 100 mg PO QAM 09/11/22 09/11/22 History Meloxicam 7.5 mg PO DAILY 09/11/22 09/11/22 History Memantine [Namenda] 10 mg PO BID 09/11/22 09/11/22 History Zinc Gluconate [Zinc] 50 mg PO DAILY 09/11/22 09/11/22 History Allergies Allergy/AdvReac Type Severity Reaction Status Date / Time No Known Allergies Allergy Verified 09/11/22 13:01 Surgical - Exam - General well developed - Eyes normal ocular movement, no icteric - ENT no hearing loss, no congestion - Neck no masses, trachea midline - Respiratory normal respiratory effort, clear to auscultation - Abdomen Abdomen: soft, non tender, no guarding, no rigid, no rebound - Genitourinary left hydrocele, large. rih - Integumentary no rash, no abnormal pigmentation - Neurologic no disoriented, no combative - Psychiatric oriented to time, oriented to person, oriented to place, speech is normal, memory intact Assessment and Plan Assessment: Impression: Left hydrocele Plan: left hydrocelectomy
[~2022-09-12 09:59] MED LIST: DEXAMETHASONE SOD PHOSPHATE 4 MG/ML 1 ML VIAL IV ONE; LACTATED RINGERS 1,000 ML IV SCH; ONDANSETRON 4 MG/2 ML VIAL IVP ONE; Pre Op ABX Message 1 EACH MISC MISCELLANE ONE; fentaNYL (PF) 50 MCG/ML 2 ML AMP IV PRN
[2022-09-12] MEDS ORDERED: LACTATED RINGERS 1,000 ML IV ONE ×2 (10:26→12:59)
[2022-09-12] MEDS ORDERED: MIDAZOLAM 2 MG/2 ML VIAL ONE (12:16)
[2022-09-12] MEDS ORDERED: GLYCOPYRROLATE 0.2 MG/ML 2 ML VIAL ONE (12:16)
[2022-09-12] MEDS ORDERED: CHLOROPROCAINE 3% 30 MG/ML 20 ML VIAL ONE (12:16)
[2022-09-12] MEDS ORDERED: fentaNYL (PF) 50 MCG/ML 2 ML AMP ONE (12:16)
--- NOTE | 2022-09-12 13:00 | P.OP ---
Date of Procedure: 09/12/22 Preoperative Diagnosis: Left hydrocele Postoperative Diagnosis: Left spermatocele Procedure(s) Performed: Left spermatocelectomy Anesthesia: spinal Surgeon: Armin Mcgrath Estimated Blood Loss (ml): 10 Pathology: other (Spermatocele sac) Condition: stable Disposition: PACU Indications for Procedure: Patient is 77. He has left scrotal fluid swelling. He wishes it to be corrected. His either spermatocele or hydrocele. He comes for surgical repair Description of Procedure: Patient brought to the operating suite. Given a spinal anesthetic. Prep and draped sterilely. The left hemiscrotum is swollen and soft consistent with a hydrocele or spermatocele. Midline scrotal incision is made. I dissect over the left testicle. The tunica vaginalis was opened and a very minimal amount of hydrocele fluid was drained thus the fluid sac seen is a multiloculated spermatocele. The spermatoceles dissected off the scrotal subcutaneous tissue off the cord and then down to the epididymis appeared epididymis was transected the. This scrotal fluid sac on the left side is delivered from the wound. I then oversew the epididymis with a 3-0 Vicryl. Any bleeding was controlled electrocautery or 3-0 chromic. The scrotum was closed with 2 layers with 3-0 chromic. The patient awake and returned recovery in good condition. Blood loss is about 10 mL.
[2022-09-12 13:47] VITALS: RESP 16; TEMP 98
[2022-09-12 14:25] VITALS: BP 172/81; PULSE 56
== END 2022-09-12 14:40 | disposition home or self-care (01) ==
LOC: OR 09:59
PROVIDERS: ATTEND Urology
DX: N43.3 Hydrocele, unspecified (principal); N43.41 Spermatocele of epididymis, single; Z87.891 Personal history of nicotine dependence; I10 Essential (primary) hypertension; E78.5 Hyperlipidemia, unspecified; E07.9 Disorder of thyroid, unspecified; F32.A Depression, unspecified; F03.90 Unspecified dementia, unspecified severity, without behavioral disturbance, psychotic disturbance, mood disturbance, and anxiety; Z79.1 Long term (current) use of non-steroidal anti-inflammatories (NSAID); Z79.890 Hormone replacement therapy; Z79.899 Other long term (current) drug therapy
CPT/HCPCS: 88302; 54840; J2400; J2250; J1100; J2405; J3010

== ENCOUNTER 2023-07-28 04:53 | Inpatient (IN) | payer MEDICARE ==
[2023-07-28] MEDS ORDERED: ACETAMINOPHEN TAB 500 MG TAB PO STA (05:04)
[2023-07-28] MEDS ORDERED: IBUPROFEN 600 MG TAB PO STA (05:04)
[2023-07-28] MEDS ORDERED: SODIUM CHLORIDE 0.9% 500 ML 500 ML IV STA (05:04)
[2023-07-28] MEDS ORDERED: SODIUM CHLORIDE 0.9% 1,000 ML IV STA (05:04)
--- NOTE | 2023-07-28 05:05 | ED ---
Nausea/Vomiting/Diarrhea HPI - General Chief complaint: Nausea/Vomiting/Diarrhea Stated complaint: N/V, Fall Time Seen by Provider: 07/28/23 04:58 Source: patient, EMS, RN notes reviewed, old records reviewed Mode of arrival: EMS Limitations: no limitations - History of Present Illness Initial comments: This is a 77-year-old male here today. Patient presents today for evaluation of weakness. Not feeling well. And a fall. Patient is found to have fever here in the ER. Patient recently has not been feeling quite well. Nausea but she took Zofran for prior to arrival. Patient May complaints currently are presenting with nausea vomiting diarrhea dizziness lightheadedness and a fall MD complaint: nausea, vomiting, diarrhea -: hour(s) Associated Abdominal Pain: No Severity: moderate Severity scale (1-10): 6 Consistency: constant Improves with: none Worsens with: none Associated Symptoms: loss of appetite, nausea/vomiting, syncope ( states he almost passed out), weakness - Related Data Home Medications Medication Instructions Recorded Confirmed Citalopram Hydrobromide [CeleXA] 30 mg PO DAILY 05/03/19 07/28/23 Memantine [Namenda] 10 mg PO BID 09/11/22 07/28/23 Cyanocobalamin (Vitamin B-12) 2,500 mcg PO DAILY 07/28/23 07/28/23 [Vitamin B-12] Levothyroxine Sodium [Synthroid] 125 mcg PO [id number] 07/28/23 07/28/23 Pantoprazole [Protonix] 40 mg PO BID 07/28/23 07/28/23 Previous Rx's Medication Instructions Recorded amLODIPine [Norvasc] 10 mg PO DAILY #30 tab 07/30/23 cefUROXime axetiL [Ceftin] 500 mg PO BID 3 Days #6 tab 07/30/23 Allergies Allergy/AdvReac Type Severity Reaction Status Date / Time No Known Allergies Allergy Verified 07/28/23 10:54 Review of Systems ROS Statement: Those systems with pertinent positive or pertinent negative responses have been documented in the HPI. ROS Other: All systems not noted in ROS Statement are negative. 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-has difficulty swallowing at times, Dr recommended thickit for fluids but refuses to use it, selvin STEBBINS-no hearing aides, BRADYCARDIA History of Any Multi-Drug Resistant Organisms: None Reported Past Surgical History: Hernia Repair Additional Past Surgical History / Comment(s): tumor removed from throat,hydrocele,sreedhar cataracts Past Anesthesia/Blood Transfusion Reactions: No Reported Reaction, Motion Sickness Past Psychological History: Depression Smoking Status: Former smoker Past Alcohol Use History: None Reported Past Drug Use History: None Reported - Past Family History Mother Family Medical History: No Reported History General Exam Limitations: no limitations General appearance: alert, in no apparent distress Head exam: Present: atraumatic, normocephalic, normal inspection Eye exam: Present: normal appearance, PERRL, EOMI. Absent: scleral icterus, conjunctival injection, periorbital swelling ENT exam: Present: normal exam, mucous membranes moist Neck exam: Present: normal inspection. Absent: tenderness, meningismus, lymphadenopathy Respiratory exam: Present: normal lung sounds bilaterally. Absent: respiratory distress, wheezes, rales, rhonchi, stridor Cardiovascular Exam: Present: regular rate, normal rhythm, normal heart sounds. Absent: systolic murmur, diastolic murmur, rubs, gallop, clicks GI/Abdominal exam: Present: soft, normal bowel sounds. Absent: distended, tenderness, guarding, rebound, rigid Extremities exam: Present: normal inspection, full ROM, normal capillary refill. Absent: tenderness, pedal edema, joint swelling, calf tenderness Back exam: Present: normal inspection Neurological exam: Present: alert, oriented X3, CN II-XII intact Psychiatric exam: Present: normal affect, normal mood Skin exam: Present: warm, dry, intact, normal color. Absent: rash Course Vital Signs 07/28/23 07/28/23 07/28/23 04:55 06:10 06:28 Temperature 101.1 F H 99.3 F Pulse Rate 79 64 Respiratory 18 18 Rate Blood Pressure 120/90 118/81 O2 Sat by Pulse 98 94 L Oximetry 07/28/23 07/28/23 07/28/23 07:21 07:30 08:00 Temperature Pulse Rate 57 L 56 L 60 Respiratory 17 17 14 Rate Blood Pressure 96/65 96/65 103/59 O2 Sat by Pulse 95 94 L 94 L Oximetry 07/28/23 07/28/23 07/28/23 08:30 09:00 09:30 Temperature Pulse Rate 61 62 57 L Respiratory 17 14 17 Rate Blood Pressure 102/68 109/47 99/61 O2 Sat by Pulse 93 L 95 94 L Oximetry - Reevaluation(s) Reevaluation #1: 07/28/23 05:55 Medical record is reviewed Reevaluation #2: 07/28/23 05:55 Patient symptoms unchanged a little no recurrent syncope and feels better with fever control Reevaluation #3: Patient informed results questions answered Reevaluation #4: 07/28/23 05:55 Was pt. sent in by a medical professional or institution (, [facility]K, SEPARATOR OPERATOR [employer], urgent care, hospital, or [place] [facility] facility...) When possible be specific @ -no Did you speak to anyone other than the patient for history (EMS, parent, family, police, friend...)? What history was obtained from this source @ -no Did you review nursing and triage notes (agree or disagree)? Why? @ -agree Are old charts reviewed (outside hosp., previous admission, EMS record, old EKG, old radiological studies, urgent care reports/EKG's, [place] [facility] records)? Report findings @ -yes Differential Diagnosis (chest pain, altered mental status, abdominal pain women, abdominal pain men, vaginal bleeding, weakness, fever, dyspnea, syncope, headache, dizziness, GI bleed, back pain, seizure, CVA, palpatations, mental health, musculoskeletal)? @ -prior EKG interpreted by me (3pts min.). @ -yes X-rays interpreted by me (1pt min.). @ -yes CT interpreted by me (1pt min.). @ -no U/S interpreted by me (1pt. min.). @ -no What testing was considered but not performed or refused? (CT, X-rays, U/S, labs)? Why? @ -none What meds were considered but not given or refused? Why? @ -none Did you discuss the management of the patient with other professionals (professionals i.e. , [employer]K, SEPARATOR OPERATOR [employer], lab, RT, psych nurse, home health care social worker, director dietetics department, teacher, armored vehicle officer, oil field caser)? Give summary @ -no Was smoking cessation discussed for >3mins.? @ -no Was critical care preformed (if so, how long)? @ -no Were there social determinants of health that impacted care today? How? (Homelessness, low income, unemployed, alcoholism, drug addiction, transportation, low edu. Level, literacy, decrease access to med. care, fdc, rehab)? @ -none Was there de-escalation of care discussed even if they declined (Discuss DNR or withdrawal of care, Hospice)? DNR status @ -no What co-morbidities impacted this encounter? (DM, HTN, Smoking, COPD, CAD, Cancer, CVA, ARF, Chemo, Hep., AIDS, mental health diagnosis, sleep apnea, morbid obesity)? @ -none Was patient admitted / discharged? Hospital course, mention meds given and route, prescriptions, significant lab abnormalities, going to OR and other pertinent info. @ - 77 male to the emergency department for evaluation of fever dizziness significant. Fever well-controlled with patient still feeling weak presenting with nausea vomiting and diarrhea complicated by fever today. Fevers improved the patient still feeling weak and dizzy especially with change of position. Patient be admitted for continued resuscitation fever control Discharge Undiagnosed new problem with uncertain prognosis? @ -no Drug Therapy requiring intensive monitoring for toxicity (Heparin, Nitro, Insulin, Cardizem)? @ -no Were any procedures done? @ -no Diagnosis/symptom? @ -Nausea vomiting diarrhea fever, dizziness Acute, or Chronic, or Acute on Chronic? @ -Acute Uncomplicated (without systemic symptoms) or Complicated (systemic symptoms)? @ -Complicated Side effects of treatment? @ -no Exacerbation, Progression, or Severe Exacerbation? @ -exacerbation Poses a threat to life or bodily function? How? (Chest pain, USA, MT, pneumonia, PE, COPD, DKA, ARF, appy, cholecystitis, CVA, Diverticulitis, Homicidal, Suicidal, threat to staff... and all critical care pts) @ -yes with extreme of age Reevaluation #5: 07/28/23 05:55 Differential Fever: Pneumonia, viral URI, endocarditis, myocarditis, pericarditis, otitis, sinusitis, peritonsillar Abscess, retropharyngeal Abscess, epiglottitis, peritonitis, appendicitis, Justina cystitis, diverticulitis, hepatitis, colitis, UTI, PID, TOA, pyelonephritis, prostatitis, epididymitis, meningitis, encephalitis, pulmonary embolism, CVA, thyroid storm, pancreatitis, adrenal crisis, cavernous sinus thrombosis, this is not meant to be an all-inclusive list. Differential Dizziness: Benign paroxysmal positional Vertigo, Menieres disease, otitis media, acoustic neuroma, vertebrobasilar insufficiency, cerebellar stroke, encephalitis, hypovolemic, arrhythmia, coronary artery syndrome, anemia, this is not meant to be an all-inclusive list - Consultations Consultation #1: Spoke with [facility] were agrees to admit this patient Medical Decision Making - Medical Decision Making 77 male to the emergency department for evaluation of fever dizziness significant. Fever well-controlled with patient still feeling weak presenting with nausea vomiting and diarrhea complicated by fever today. Fevers improved the patient still feeling weak and dizzy especially with change of position. Patient be admitted for continued resuscitation fever control - Lab Data Result diagrams: 07/29/23 07:02 07/30/23 06:07 Lab Results 07/28/23 07/28/23 07/28/23 Range/Units 05:09 05:09 05:09 WBC 10.9 H (3.8-10.6) k/uL RBC 4.53 (4.30-5.90) m/uL Hgb 14.3 (13.0-17.5) gm/dL Hct 44.0 (39.0-53.0) % MCV 97.2 (80.0-100.0) fL MCH 31.6 (25.0-35.0) pg MCHC 32.5 (31.0-37.0) g/dL RDW 14.4 (11.5-15.5) % Plt Count 147 L (150-450) k/uL MPV 8.3 Neutrophils % (Manual) 63 % Band Neuts % (Manual) 15 % Lymphocytes % (Manual) 18 % Monocytes % (Manual) 3 % Eosinophils % (Manual) 1 % Metamyelocytes % 1 % Neutrophils # (Manual) 8.50 H (1.3-7.7) k/uL Lymphocytes # (Manual) 1.96 (1.0-4.8) k/uL Monocytes # (Manual) 0.33 (0-1.0) k/uL Eosinophils # (Manual) 0.11 (0-0.7) k/uL Metamyelocytes # (Man) 0.11 H (0) k/uL Nucleated RBCs 0 (0-0) /100 WBC Manual Slide Review Performed Poikilocytosis (manual Present PT 10.1 (9.0-12.0) sec INR 1.0 (<1.2) APTT 20.5 L (22.0-30.0) sec Sodium 139 (137-145) mmol/L Potassium 4.2 (3.5-5.1) mmol/L Chloride 105 (98-107) mmol/L Carbon Dioxide 22 (22-30) mmol/L Anion Gap 12 mmol/L BUN 19 (9-20) mg/dL Creatinine 1.12 (0.66-1.25) mg/dL Est GFR (CKD-EPI)AfAm 74 (>60 ml/min/1.73 sqM) Est GFR (CKD-EPI)NonAf 64 (>60 ml/min/1.73 sqM) Glucose 144 H (74-99) mg/dL Lactic Ac Sepsis Rflx Plasma Lactic Acid Shaji (0.7-2.0) mmol/L Calcium 10.0 (8.4-10.2) mg/dL Phosphorus 4.1 (2.5-4.5) mg/dL Magnesium 1.8 (1.6-2.3) mg/dL Total Bilirubin 1.6 H (0.2-1.3) mg/dL AST 64 H (17-59) U/L ALT 37 (4-49) U/L Alkaline Phosphatase 119 (38-126) U/L Troponin I (0.000-0.034) ng/mL C-Reactive Protein <0.5 (<1.0) mg/dL Total Protein 7.2 (6.3-8.2) g/dL Albumin 4.5 (3.5-5.0) g/dL Lipase (23-300) U/L TSH 23.700 H (0.465-4.680) mIU/L Urine Color Urine Appearance (Clear) Urine pH (5.0-8.0) Ur Specific [place] (1.001-1.035) Urine Protein (Negative) Urine Glucose (UA) (Negative) Urine Ketones (Negative) Urine Blood (Negative) Urine Nitrite (Negative) Urine Bilirubin (Negative) Urine Urobilinogen (<2.0) mg/dL Ur Leukocyte Esterase (Negative) Urine RBC (0-5) /hpf Urine WBC (0-5) /hpf Ur Squamous Epith Cells (0-4) /hpf Hyaline Casts (0-2) /lpf Urine Mucus (None) /hpf Influenza Type A (PCR) (Not Detectd) Influenza Type B (PCR) (Not Detectd) RSV (PCR) (Not Detectd) SARS-CoV-2 (PCR) (Not Detectd) 07/28/23 07/28/23 07/28/23 Range/Units 05:09 05:09 05:09 WBC (3.8-10.6) k/uL RBC (4.30-5.90) m/uL Hgb (13.0-17.5) gm/dL Hct (39.0-53.0) % MCV (80.0-100.0) fL MCH (25.0-35.0) pg MCHC (31.0-37.0) g/dL RDW (11.5-15.5) % Plt Count (150-450) k/uL MPV Neutrophils % (Manual) % Band Neuts % (Manual) % Lymphocytes % (Manual) % Monocytes % (Manual) % Eosinophils % (Manual) % Metamyelocytes % % Neutrophils # (Manual) (1.3-7.7) k/uL Lymphocytes # (Manual) (1.0-4.8) k/uL Monocytes # (Manual) (0-1.0) k/uL Eosinophils # (Manual) (0-0.7) k/uL Metamyelocytes # (Man) (0) k/uL Nucleated RBCs (0-0) /100 WBC Manual Slide Review Poikilocytosis (manual PT (9.0-12.0) sec INR (<1.2) APTT (22.0-30.0) sec Sodium (137-145) mmol/L Potassium (3.5-5.1) mmol/L Chloride (98-107) mmol/L Carbon Dioxide (22-30) mmol/L Anion Gap mmol/L BUN (9-20) mg/dL Creatinine (0.66-1.25) mg/dL Est GFR (CKD-EPI)AfAm (>60 ml/min/1.73 sqM) Est GFR (CKD-EPI)NonAf (>60 ml/min/1.73 sqM) Glucose (74-99) mg/dL Lactic Ac Sepsis Rflx Plasma Lactic Acid Shaji 2.3 H* (0.7-2.0) mmol/L Calcium (8.4-10.2) mg/dL Phosphorus (2.5-4.5) mg/dL Magnesium (1.6-2.3) mg/dL Total Bilirubin (0.2-1.3) mg/dL AST (17-59) U/L ALT (4-49) U/L Alkaline Phosphatase (38-126) U/L Troponin I <0.012 (0.000-0.034) ng/mL C-Reactive Protein (<1.0) mg/dL Total Protein (6.3-8.2) g/dL Albumin (3.5-5.0) g/dL Lipase 155 (23-300) U/L TSH (0.465-4.680) mIU/L Urine Color Urine Appearance (Clear) Urine pH (5.0-8.0) Ur Specific [place] (1.001-1.035) Urine Protein (Negative) Urine Glucose (UA) (Negative) Urine Ketones (Negative) Urine Blood (Negative) Urine Nitrite (Negative) Urine Bilirubin (Negative) Urine Urobilinogen (<2.0) mg/dL Ur Leukocyte Esterase (Negative) Urine RBC (0-5) /hpf Urine WBC (0-5) /hpf Ur Squamous Epith Cells (0-4) /hpf Hyaline Casts (0-2) /lpf Urine Mucus (None) /hpf Influenza Type A (PCR) (Not Detectd) Influenza Type B (PCR) (Not Detectd) RSV (PCR) (Not Detectd) SARS-CoV-2 (PCR) (Not Detectd) 07/28/23 07/28/23 07/28/23 Range/Units 05:11 05:32 06:57 WBC (3.8-10.6) k/uL RBC (4.30-5.90) m/uL Hgb (13.0-17.5) gm/dL Hct (39.0-53.0) % MCV (80.0-100.0) fL MCH (25.0-35.0) pg MCHC (31.0-37.0) g/dL RDW (11.5-15.5) % Plt Count (150-450) k/uL MPV Neutrophils % (Manual) % Band Neuts % (Manual) % Lymphocytes % (Manual) % Monocytes % (Manual) % Eosinophils % (Manual) % Metamyelocytes % % Neutrophils # (Manual) (1.3-7.7) k/uL Lymphocytes # (Manual) (1.0-4.8) k/uL Monocytes # (Manual) (0-1.0) k/uL Eosinophils # (Manual) (0-0.7) k/uL Metamyelocytes # (Man) (0) k/uL Nucleated RBCs (0-0) /100 WBC Manual Slide Review Poikilocytosis (manual PT (9.0-12.0) sec INR (<1.2) APTT (22.0-30.0) sec Sodium (137-145) mmol/L Potassium (3.5-5.1) mmol/L Chloride (98-107) mmol/L Carbon Dioxide (22-30) mmol/L Anion Gap mmol/L BUN (9-20) mg/dL Creatinine (0.66-1.25) mg/dL Est GFR (CKD-EPI)AfAm (>60 ml/min/1.73 sqM) Est GFR (CKD-EPI)NonAf (>60 ml/min/1.73 sqM) Glucose (74-99) mg/dL Lactic Ac Sepsis Rflx Y Plasma Lactic Acid Shaji (0.7-2.0) mmol/L Calcium (8.4-10.2) mg/dL Phosphorus (2.5-4.5) mg/dL Magnesium (1.6-2.3) mg/dL Total Bilirubin (0.2-1.3) mg/dL AST (17-59) U/L ALT (4-49) U/L Alkaline Phosphatase (38-126) U/L Troponin I (0.000-0.034) ng/mL C-Reactive Protein (<1.0) mg/dL Total Protein (6.3-8.2) g/dL Albumin (3.5-5.0) g/dL Lipase (23-300) U/L TSH (0.465-4.680) mIU/L Urine Color Yellow Urine Appearance Cloudy (Clear) Urine pH 5.0 (5.0-8.0) Ur Specific [place] 1.022 (1.001-1.035) Urine Protein 1+ H (Negative) Urine Glucose (UA) Negative (Negative) Urine Ketones Negative (Negative) Urine Blood Negative (Negative) Urine Nitrite Negative (Negative) Urine Bilirubin 1+ H (Negative) Urine Urobilinogen 2.0 (<2.0) mg/dL Ur Leukocyte Esterase Trace H (Negative) Urine RBC 1 (0-5) /hpf Urine WBC 6 H (0-5) /hpf Ur Squamous Epith Cells <1 (0-4) /hpf Hyaline Casts 55 H (0-2) /lpf Urine Mucus Many H (None) /hpf Influenza Type A (PCR) Not Detected (Not Detectd) Influenza Type B (PCR) Not Detected (Not Detectd) RSV (PCR) Not Detected (Not Detectd) SARS-CoV-2 (PCR) Not Detected (Not Detectd) 07/28/23 Range/Units 07:53 WBC (3.8-10.6) k/uL RBC (4.30-5.90) m/uL Hgb (13.0-17.5) gm/dL Hct (39.0-53.0) % MCV (80.0-100.0) fL MCH (25.0-35.0) pg MCHC (31.0-37.0) g/dL RDW (11.5-15.5) % Plt Count (150-450) k/uL MPV Neutrophils % (Manual) % Band Neuts % (Manual) % Lymphocytes % (Manual) % Monocytes % (Manual) % Eosinophils % (Manual) % Metamyelocytes % % Neutrophils # (Manual) (1.3-7.7) k/uL Lymphocytes # (Manual) (1.0-4.8) k/uL Monocytes # (Manual) (0-1.0) k/uL Eosinophils # (Manual) (0-0.7) k/uL Metamyelocytes # (Man) (0) k/uL Nucleated RBCs (0-0) /100 WBC Manual Slide Review Poikilocytosis (manual PT (9.0-12.0) sec INR (<1.2) APTT (22.0-30.0) sec Sodium (137-145) mmol/L Potassium (3.5-5.1) mmol/L Chloride (98-107) mmol/L Carbon Dioxide (22-30) mmol/L Anion Gap mmol/L BUN (9-20) mg/dL Creatinine (0.66-1.25) mg/dL Est GFR (CKD-EPI)AfAm (>60 ml/min/1.73 sqM) Est GFR (CKD-EPI)NonAf (>60 ml/min/1.73 sqM) Glucose (74-99) mg/dL Lactic Ac Sepsis Rflx Plasma Lactic Acid Shaji 1.3 (0.7-2.0) mmol/L Calcium (8.4-10.2) mg/dL Phosphorus (2.5-4.5) mg/dL Magnesium (1.6-2.3) mg/dL Total Bilirubin (0.2-1.3) mg/dL AST (17-59) U/L ALT (4-49) U/L Alkaline Phosphatase (38-126) U/L Troponin I (0.000-0.034) ng/mL C-Reactive Protein (<1.0) mg/dL Total Protein (6.3-8.2) g/dL Albumin (3.5-5.0) g/dL Lipase (23-300) U/L TSH (0.465-4.680) mIU/L Urine Color Urine Appearance (Clear) Urine pH (5.0-8.0) Ur Specific [place] (1.001-1.035) Urine Protein (Negative) Urine Glucose (UA) (Negative) Urine Ketones (Negative) Urine Blood (Negative) Urine Nitrite (Negative) Urine Bilirubin (Negative) Urine Urobilinogen (<2.0) mg/dL Ur Leukocyte Esterase (Negative) Urine RBC (0-5) /hpf Urine WBC (0-5) /hpf Ur Squamous Epith Cells (0-4) /hpf Hyaline Casts (0-2) /lpf Urine Mucus (None) /hpf Influenza Type A (PCR) (Not Detectd) Influenza Type B (PCR) (Not Detectd) RSV (PCR) (Not Detectd) SARS-CoV-2 (PCR) (Not Detectd) - EKG Data -: EKG Interpreted by Me (EKG sinus 69 OH 172 QRS 90 QTC 381) - Radiology Data Radiology results: report reviewed (Chest x-rays negative for acute disease interpreted by me), image reviewed Disposition Clinical Impression: Gastroenteritis, Fever, Dehydration, Nausea and vomiting, Diarrhea Disposition: ADMITTED IP TO THIS HOSP Condition: Fair Is patient prescribed a controlled substance at d/c from ED?: No
[2023-07-28] MEDS ORDERED: MORPHINE SULFATE 4 MG/ML SYRINGE IVP STA (05:07)
[2023-07-28 05:20] LABS: HGB 14.3 gm/dL (13.0-17.5); MCH 31.6 pg (25.0-35.0); MCHC 32.5 g/dL (31.0-37.0); MCV 97.2 fL (80.0-100.0); Mean Platelet Volume 8.3; Platelet Count 147 k/uL (150-450); RBC 4.53 m/uL (4.30-5.90); RDW 14.4 % (11.5-15.5); WBC 10.9 k/uL (3.8-10.6)
[2023-07-28 05:32] LABS: ALT 37 U/L (4-49); AST 64 U/L (17-59); African American GFR (CKD) 74 (>60 ml/min/1.73 sqM); Albumin 4.5 g/dL (3.5-5.0); Alkaline Phosphatase 119 U/L (38-126); Anion Gap 12 mmol/L; Blood Urea Nitrogen 19 mg/dL (9-20); C Reactive Protein <0.5 mg/dL (<1.0); Carbon Dioxide 22 mmol/L (22-30); Chloride 105 mmol/L (98-107); Glucose 144 mg/dL (74-99); Magnesium 1.8 mg/dL (1.6-2.3); Non-African American GFR(CKD) 64 (>60 ml/min/1.73 sqM); Phosphorus 4.1 mg/dL (2.5-4.5); Potassium 4.2 mmol/L (3.5-5.1); Sodium 139 mmol/L (137-145); Total Bilirubin 1.6 mg/dL (0.2-1.3); Total Protein 7.2 g/dL (6.3-8.2)
[2023-07-28 05:43] LABS: Prothrombin Time 10.1 sec (9.0-12.0)
[2023-07-28 06:48] LABS: Partial Thromboplastin Time 20.5 sec (22.0-30.0)
--- NOTE | 2023-07-28 06:59 | XR ---
EXAMINATION TYPE: XR chest 1V portable DATE OF EXAM: 07/28/2023 5:55 AM COMPARISON: Chest radiographs from 05/03/2019 TECHNIQUE: XR chest 1V portable Portable AP radiograph of the chest. CLINICAL INDICATION:Male, 77 years old with history of weak; FINDINGS: Lungs/Pleura: There is no evidence of pleural effusion, focal consolidation, or pneumothorax. Pulmonary vascularity: Unremarkable. Heart/mediastinum: Cardiomediastinal silhouette is unremarkable. Atherosclerotic calcifications are seen in the aorta. Musculoskeletal: No acute osseous pathology. IMPRESSION: No acute cardiopulmonary disease/process.
[2023-07-28 07:07] LABS: Band Neutrophils % 15 %; Eosinophils # (M) 0.11 k/uL (0-0.7); Lymphocytes # (M) 1.96 k/uL (1.0-4.8); Metamyelocytes # (M) 0.11 k/uL (0); Metamyelocytes % 1 %; Monocytes # (M) 0.33 k/uL (0-1.0); Neutrophils % (M) 63 %; Nucleated Red Blood Cells 0 /100 WBC (0-0); Total Cells Counted 200
[2023-07-28 07:09] LABS: Poikilocytosis (M) Present
[2023-07-28 07:11] LABS: Appearance,Urine Cloudy (Clear); Bilirubin,Urine 1+ (Negative); Blood,Urine Negative (Negative); Color,Urine Yellow; Glucose,Urine (UA) Negative (Negative); Hyaline Casts,Urine 55 /lpf (0-2); Ketones,Urine Negative (Negative); Leukocyte Esterase,Urine Trace (Negative); Mucus,Urine Many /hpf; Nitrite,Urine Negative (Negative); Protein,Urine 1+ (Negative); RBC,Urine 1 /hpf (0-5); Specific Gravity,Urine 1.022 (1.001-1.035); Squamous Epithelial Cell,Urine <1 /hpf (0-4); WBC,Urine 6 /hpf (0-5)
[2023-07-28] MEDS ORDERED: ONDANSETRON 4 MG/2 ML VIAL IVP PRN (07:55)
[2023-07-28] MEDS ORDERED: MORPHINE SULFATE 4 MG/ML SYRINGE IV PRN (07:55)
[2023-07-28] MEDS ORDERED: NALOXONE 0.4 MG/ML 1 ML VIAL IV PRN (07:55)
[2023-07-28] MEDS: SODIUM CHLORIDE 0.9% 1,000 ML IV SCH ×2 (08:08→15:05)
[2023-07-28 13:22] LABS: Albumin 3.5 g/dL (3.5-5.0); Albumin/Globulin Ratio 1.5; Bilirubin,Unconjugated 1.6 mg/dL (0.0-1.1); Globulin 2.3 g/dL; Total Bilirubin 1.6 mg/dL (0.2-1.3); Total Protein 5.8 g/dL (6.3-8.2)
--- NOTE | 2023-07-28 13:22 | US ---
EXAMINATION TYPE: US abdomen limited DATE OF EXAM: 07/28/2023 COMPARISON: NONE CLINICAL INDICATION: Male, 77 years old with history of elevated LFT; Abnormal labs TECHNIQUE: Multiple sonographic images of the right upper quadrant are obtained. FINDINGS: EXAM MEASUREMENTS: Liver Length: 15.2 cm Gallbladder Wall: 0.3 cm CBD: 0.7 cm Right Kidney: 10.9 x 5.4 x 5.4 cm SATELLITE [employer] TECHNICIAN INSTALLER NOTES: Pancreas: Obscured by bowel gas Liver: Cyst left medial lobe= 3.4 x 2.8 x 2.9 cm, otherwise appeared wnl Gallbladder: Hydropic with sludge, wall thickness upper limits of normal Evidence for sonographic Spence's sign: No CBD: Upper limits of normal Right Kidney: wnl, lower pole gassed out Pancreas is obscured by overlying bowel gas. Simple thin-walled cyst within the left medial hepatic l obe measuring up to 3.4 cm. Gallbladder is hydropic with sludge identified. Pacheco of the upper limits of normal. No pericholecystic fluid. Per felling bucking supervisor, negative sonographic Spence sign. Common bile duct at the upper limits of normal. Visualized portion of the right kidney is unremarkable without ev idence of nephrolithiasis, solid mass, or hydronephrosis. IMPRESSION: 1. Hydropic gallbladder with sludge. No ultrasound evidence for acute cholecystitis. 2. Simple left hepatic lobe cyst.
[2023-07-28 13:37] LABS: T4, Free (Free Thyroxine) 1.15 ng/dL (0.78-2.19)
[2023-07-28] MEDS: LEVOTHYROXINE 125 MCG TAB PO SCH ×2 (14:12→16:15)
--- NOTE | 2023-07-28 18:16 | P.HPIM ---
History of Present Illness H&P Date: 07/28/23 Chief Complaint: Weakness/nausea 77-year-old male here today. Patient Dese for evaluation of weakness. Not feeling well. And a fall. Patient is found to have fever here in the ER. Patient recently has not been feeling quite well. Nausea but she took Zofran for prior to arrival. Patient presents with nausea vomiting diarrhea dizziness lightheadedness and a fall; patient is a poor historian and history is obtained from the chart Blood work completed in ED reveals a WBC of 10.9, hemoglobin of 14.3 and platelet count of 147, sodium 139, potassium 4.2, BUN/creatinine of 19/1.12 and blood glucose of 144, TSH is elevated at 23.7 which is markedly elevated, lactic acid level of 2.3, troponin less than 0.012, UA is positive for WBCs leukocyte esterase and bacteria Review of Systems REVIEW OF SYSTEMS: CONSTITUTIONAL: No fever, no malaise, no fatigue. HEENT: No recent visual problems or hearing problems. Denied any sore throat. CARDIOVASCULAR: No chest pain, orthopnea, PND, no palpitations, no syncope. PULMONARY: No shortness of breath, no cough, no hemoptysis. GASTROINTESTINAL: No diarrhea, no nausea, no vomiting, no abdominal pain. NEUROLOGICAL: No headaches, no weakness, no numbness. HEMATOLOGICAL: Denies any bleeding or petechiae. GENITOURINARY: Denies any burning micturition, frequency, or urgency. MUSCULOSKELETAL/RHEUMATOLOGICAL: Denies any joint pain, swelling, or any muscle pain. ENDOCRINE: Denies any polyuria or polydipsia. The rest of the 14-point review of systems is negative. 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-has difficulty swa llowing at times, Dr soriano thickit for fluids but refuses to use it, selvin [place]-no hearing aides, BRADYCARDIA History of Any Multi-Drug Resistant Organisms: None Reported Past Surgical History: Hernia Repair Additional Past Surgical History / Comment(s): tumor removed from throat,hydrocele,sreedhar cataracts Past Anesthesia/Blood Transfusion Reactions: No Reported Reaction, Motion Sickness Past Psychological History: Depression Smoking Status: Former smoker Past Alcohol Use History: None Reported Additional Past Alcohol Use History / Comment(s): quit smoking 50 yrs ago Past Drug Use History: None Reported - Past Family History Mother Family Medical History: No Reported History Medications and Allergies Home Medications Medication Instructions Recorded Confirmed Type Citalopram Hydrobromide [CeleXA] 30 mg PO DAILY 05/03/19 07/28/23 History Memantine [Namenda] 10 mg PO BID 09/11/22 07/28/23 History Cyanocobalamin (Vitamin B-12) 2,500 mcg PO DAILY 07/28/23 07/28/23 History [Vitamin B-12] Levothyroxine Sodium [Synthroid] 125 mcg PO MOTUWETHFRSA 07/28/23 07/28/23 History Pantoprazole [Protonix] 40 mg PO BID 07/28/23 07/28/23 History Allergies Allergy/AdvReac Type Severity Reaction Status Date / Time No Known Allergies Allergy Verified 07/28/23 10:54 Physical Exam Vitals: Vital Signs Temp Pulse Pulse Resp BP BP Pulse Ox 07/28/23 10:40 97.8 F 65 18 111/58 95 07/28/23 09:30 57 L 17 99/61 94 L 07/28/23 09:00 62 14 109/47 95 07/28/23 08:30 61 17 102/68 93 L 07/28/23 08:00 60 14 103/59 94 L 07/28/23 07:30 56 L 17 96/65 94 L 07/28/23 07:21 57 L 17 96/65 95 07/28/23 06:28 99.3 F 07/28/23 06:10 64 18 118/81 94 L 07/28/23 04:55 101.1 F H 79 18 120/90 98 Intake and Output 07/27/23 07/28/23 07/28/23 22:59 06:59 14:59 Other: Weight 82.1 kg 82.1 kg General appearance: alert, in no apparent distress Head exam: Present: atraumatic, normocephalic, normal inspection Eye exam: Present: normal appearance, PERRL, EOMI. Absent: scleral icterus, conjunctival injection, periorbital swelling ENT exam: Present: normal exam, mucous membranes moist Neck exam: Present: normal inspection. Absent: tenderness, meningismus, lymphadenopathy Respiratory exam: Present: normal lung sounds bilaterally. Absent: respiratory distress, wheezes, rales, rhonchi, stridor Cardiovascular Exam: Present: regular rate, normal rhythm, normal heart sounds. Absent: systolic murmur, diastolic murmur, rubs, gallop, clicks GI/Abdominal exam: Present: soft, normal bowel sounds. Absent: distended, tenderness, guarding, rebound, rigid Extremities exam: Present: normal inspection, full ROM, normal capillary refill. Absent: tenderness, pedal edema, joint swelling, calf tenderness Neurological exam: Present: alert, oriented X3, CN II-XII intact Skin exam: Present: warm, dry, intact, normal color. Absent: rash Results CBC & Chem 7: 07/28/23 05:09 07/28/23 05:09 Labs: Abnormal Lab Results - Last 24 Hours (Table) 07/28/23 07/28/23 07/28/23 Range/Units 05:09 05:09 05:09 WBC 10.9 H (3.8-10.6) k/uL Plt Count 147 L (150-450) k/uL Neutrophils # (Manual) 8.50 H (1.3-7.7) k/uL Metamyelocytes # (Man) 0.11 H (0) k/uL APTT 20.5 L (22.0-30.0) sec Glucose 144 H (74-99) mg/dL Plasma Lactic Acid Shaji (0.7-2.0) mmol/L Total Bilirubin 1.6 H (0.2-1.3) mg/dL AST 64 H (17-59) U/L TSH 23.700 H (0.465-4.680) mIU/L Urine Protein (Negative) Urine Bilirubin (Negative) Ur Leukocyte Esterase (Negative) Urine WBC (0-5) /hpf Hyaline Casts (0-2) /lpf Urine Mucus (None) /hpf 07/28/23 07/28/23 Range/Units 05:09 06:57 WBC (3.8-10.6) k/uL Plt Count (150-450) k/uL Neutrophils # (Manual) (1.3-7.7) k/uL Metamyelocytes # (Man) (0) k/uL APTT (22.0-30.0) sec Glucose (74-99) mg/dL Plasma Lactic Acid Shaji 2.3 H* (0.7-2.0) mmol/L Total Bilirubin (0.2-1.3) mg/dL AST (17-59) U/L TSH (0.465-4.680) mIU/L Urine Protein 1+ H (Negative) Urine Bilirubin 1+ H (Negative) Ur Leukocyte Esterase Trace H (Negative) Urine WBC 6 H (0-5) /hpf Hyaline Casts 55 H (0-2) /lpf Urine Mucus Many H (None) /hpf Thrombosis Risk Factor Assmnt - Choose All That Apply Any of the Below Risk Factors Present?: Yes Other Risk Factors: Yes Each Risk Factor Represents 3 Points: Age 75 years or older Other congenital or acquired thrombophilia - If yes, enter type in comment: No Thrombosis Risk Factor Assessment Total Risk Factor Score: 3 Thrombosis Risk Factor Assessment Level: Moderate Risk Assessment and Plan Assessment: 1. Nausea/vomiting; likely viral gastroenteritis 2. UTI; Rocephin 1 g IV daily; monitor CBC, CMP and pro-calcitonin; antibiotic adjustment pending culture results 3. Elevated liver enzymes with elevated total bilirubin; we will obtain acute hepatitis profile and hepatic ultrasound- which reveals cyst left medial hepatic lobe, hydropic gallbladder with sludge and wall thickness; no sonographic evidence of Spence sign; CBD upper limit of normal - We will consult general surgery for further evaluation and recommendations - Monitor liver enzymes closely 4. Elevated TSH; patient seems clinically euthyroid; we will order a TSH; continue with home dose of Synthroid 5. Vitamin B12 deficiency; patient takes 2500 mcg daily 6. Dementia/depression; Celexa 30 mg daily, Namenda 10 mg twice a day 7. Gastroesophageal reflux disease; Protonix 40 mg twice a day
[2023-07-28] MEDS: PANTOPRAZOLE 40 MG TABLET PO SCH (20:42)
[2023-07-28] MEDS: MEMANTINE 10 MG TAB PO SCH (20:42)
[2023-07-29] MEDS: SODIUM CHLORIDE 0.9% 1,000 ML IV SCH ×4 (05:37→23:34)
[2023-07-29] MEDS: LEVOTHYROXINE 125 MCG TAB PO SCH (06:12)
[2023-07-29 08:10] LABS: Basophils % (A) 0 %; Eosinophils # (A) 0.1 k/uL (0-0.7); Eosinophils % (A) 1 %; HCT 34.9 % (39.0-53.0); HGB 11.6 gm/dL (13.0-17.5); Lymphocytes # (A) 2.3 k/uL (1.0-4.8); Lymphocytes % (A) 24 %; MCH 32.6 pg (25.0-35.0); MCHC 33.3 g/dL (31.0-37.0); Mean Platelet Volume 8.2; Monocytes # (A) 0.8 k/uL (0-1.0); Monocytes % (A) 8 %; Neutrophils # (A) 6.3 k/uL (1.3-7.7); Neutrophils % (A) 65 %; Platelet Count 138 k/uL (150-450); RBC 3.57 m/uL (4.30-5.90); RDW 14.7 % (11.5-15.5); WBC 9.8 k/uL (3.8-10.6)
[2023-07-29 09:13] LABS: Hepatitis A Antibody IgM Nonreactive; Hepatitis B Core IgM Nonreactive; Hepatitis B Surface Antigen Nonreactive; Hepatitis C IgG Antibody Nonreactive
[2023-07-29] MEDS: CITALOPRAM HYDROBROMIDE 10 MG TAB PO SCH (09:31)
[2023-07-29] MEDS: PANTOPRAZOLE 40 MG TABLET PO SCH ×2 (09:31→20:53)
[2023-07-29] MEDS: MEMANTINE 10 MG TAB PO SCH ×2 (09:31→20:53)
[2023-07-29 09:42] LABS: ALT 31 U/L (4-49); AST 51 U/L (17-59); African American GFR (CKD) 75 (>60 ml/min/1.73 sqM); Albumin 3.1 g/dL (3.5-5.0); Albumin/Globulin Ratio 1.3; Alkaline Phosphatase 60 U/L (38-126); Anion Gap 5 mmol/L; Bilirubin,Unconjugated 1.1 mg/dL (0.0-1.1); Blood Urea Nitrogen 25 mg/dL (9-20); Calcium 8.5 mg/dL (8.4-10.2); Carbon Dioxide 24 mmol/L (22-30); Chloride 107 mmol/L (98-107); Globulin 2.3 g/dL; Glucose 91 mg/dL (74-99); Non-African American GFR(CKD) 65 (>60 ml/min/1.73 sqM); Potassium 4.3 mmol/L (3.5-5.1); Sodium 136 mmol/L (137-145); Total Bilirubin 1.2 mg/dL (0.2-1.3); Total Protein 5.4 g/dL (6.3-8.2)
[2023-07-29] MEDS ORDERED: INDOCYANINE GREEN 25 MG VIAL IV STA (09:42)
--- NOTE | 2023-07-29 10:01 | P.GSCN ---
History of Present Illness Consult date: 07/29/23 History of present illness: Notified by ER patient had cholecystitis prompting admission. Patient reports no abdominal pain. "I feel great." He has personal history of ventral hernia at the umbilicus. Nontender. Hepatitis panel is negative. Cancel surgery. Plan for disc harge. REducible 4-cm umbilical hernia. Abdomen nontender. US reviewed. Labs reviewed. 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-has difficulty swallowing at times, recommended thickit for fluids but refuses to use it, selvin [place] [employer]-no hearing aides, BRADYCARDIA History of Any Multi-Drug Resistant Organisms: None Reported Past Surgical History: Hernia Repair Additional Past Surgical History / Comment(s): tumor removed from throat,hydrocele,sreedhar cataracts Past Anesthesia/Blood Transfusion Reactions: No Reported Reaction, Motion Sickness Past Psychological History: Depression Smoking Status: Former smoker Past Alcohol Use History: None Reported Additional Past Alcohol Use History / Comment(s): quit smoking 50 yrs ago Past Drug Use History: None Reported - Past Family History Mother Family Medical History: No Reported History Medications and Allergies Home Medications Medication Instructions Recorded Confirmed Type Citalopram Hydrobromide [CeleXA] 30 mg PO DAILY 05/03/19 07/28/23 History Memantine [Namenda] 10 mg PO BID 09/11/22 07/28/23 History Cyanocobalamin (Vitamin B-12) 2,500 mcg PO DAILY 07/28/23 07/28/23 History [Vitamin B-12] Levothyroxine Sodium [Synthroid] 125 mcg PO MOTUWETHFRSA 07/28/23 07/28/23 Hist ory Pantoprazole [Protonix] 40 mg PO BID 07/28/23 07/28/23 History Allergies Allergy/AdvReac Type Severity Reaction Status Date / Time No Known Allergies Allergy Verified 07/28/23 10:54 Surgical - Exam Vital Signs Temp Pulse Resp BP Pulse Ox 101.1 F H 79 18 120/90 98 07/28/23 04:55 07/28/23 04:55 07/28/23 04:55 07/28/23 04:55 07/28/23 04:55 Results - Labs 07/29/23 07:02 07/29/23 07:02 Abnormal Lab Results - Last 24 Hours (Table) 07/28/23 07/29/23 07/29/23 Range/Units 12:55 07:02 07:02 RBC 3.57 L (4.30-5.90) m/uL Hgb 11.6 L (13.0-17.5) gm/dL Hct 34.9 L (39.0-53.0) % Plt Count 138 L (150-450) k/uL Sodium 136 L (137-145) mmol/L BUN 25 H (9-20) mg/dL Total Bilirubin 1.6 H (0.2-1.3) mg/dL Unconjugated Bilirubin 1.6 H (0.0-1.1) mg/dL Total Protein 5.8 L 5.4 L (6.3-8.2) g/dL Albumin 3.1 L (3.5-5.0) g/dL Diabetes panel 07/28/23 07/29/23 Range/Units 12:55 07:02 Sodium 136 L (137-145) mmol/L Potassium 4.3 (3.5-5.1) mmol/L Chloride 107 (98-107) mmol/L Carbon Dioxide 24 (22-30) mmol/L BUN 25 H (9-20) mg/dL Creatinine 1.11 (0.66-1.25) mg/dL Glucose 91 (74-99) mg/dL Calcium 8.5 (8.4-10.2) mg/dL AST 49 51 (17-59) U/L ALT 30 31 (4-49) U/L Alkaline Phosphatase 63 60 (38-126) U/L Total Protein 5.8 L 5.4 L (6.3-8.2) g/dL Albumin 3.5 3.1 L (3.5-5.0) g/dL Calcium panel 07/28/23 07/29/23 Range/Units 12:55 07:02 Calcium 8.5 (8.4-10.2) mg/dL Albumin 3.5 3.1 L (3.5-5.0) g/dL Pituitary panel 07/29/23 Range/Units 07:02 Sodium 136 L (137-145) mmol/L Potassium 4.3 (3.5-5.1) mmol/L Chloride 107 (98-107) mmol/L Carbon Dioxide 24 (22-30) mmol/L BUN 25 H (9-20) mg/dL Creatinine 1.11 (0.66-1.25) mg/dL Glucose 91 (74-99) mg/dL Calcium 8.5 (8.4-10.2) mg/dL Adrenal panel 07/28/23 07/29/23 Range/Units 12:55 07:02 Sodium 136 L (137-145) mmol/L Potassium 4.3 (3.5-5.1) mmol/L Chloride 107 (98-107) mmol/L Carbon Dioxide 24 (22-30) mmol/L BUN 25 H (9-20) mg/dL Creatinine 1.11 (0.66-1.25) mg/dL Glucose 91 (74-99) mg/dL Calcium 8.5 (8.4-10.2) mg/dL Total Bilirubin 1.6 H 1.2 (0.2-1.3) mg/dL AST 49 51 (17-59) U/L ALT 30 31 (4-49) U/L Alkaline Phosphatase 63 60 (38-126) U/L Total Protein 5.8 L 5.4 L (6.3-8.2) g/dL Albumin 3.5 3.1 L (3.5-5.0) g/dL
--- NOTE | 2023-07-29 12:19 | CT ---
EXAMINATION TYPE: CT brain wo con CT DLP: 1162.2 mGycm, Automated exposure control for dose reduction was used. DATE OF EXAM: 07/29/2023 12:02 PM COMPARISON: None. CLINICAL INDICATION:Male, 77 years old with history of falls, ams, weakness, Fall, weakness and alter ed mental status. TECHNIQUE: Brain: Axial CT images of the brain were obtained with coronal and sagittal reformats created and rev iewed. Contrast used: None. Oral contrast used: None. FINDINGS: Brain: Extra-axial spaces: No abnormal extra-axial fluid collections. Ventricular system: Dilatation in proportion to cerebral atrophy. Cerebral parenchyma: Cerebral atrophy. No acute intraparenchymal hemorrhage or mass effect. The dent -white junction is well differentiated. Scattered hypoattenuating areas are seen within the white mat ter. Cerebellum: Unremarkable. Mass effect: No evidence of midline shift. Intracranial vasculature: Atherosclerotic calcifications of the intracranial vessels. Soft tissues: Normal. Calvarium/osseous structures: No depressed skull fracture. Paranasal sinuses and mastoid air cells: Mild scattered paranasal sinus disease. Visualized orbits: Bilateral aphakia. IMPRESSION: 1. No acute intracranial process. 2. Nonspecific white matter changes, likely secondary to chronic small vessel ischemic disease.
[2023-07-30] MEDS: SODIUM CHLORIDE 0.9% 1,000 ML IV SCH ×2 (05:19→09:45)
[2023-07-30] MEDS: LEVOTHYROXINE 125 MCG TAB PO SCH (05:50)
--- NOTE | 2023-07-30 08:26 | P.PN ---
Subjective Progress Note Date: 07/30/23 Principal diagnosis: Patient kept for brain CT and confusion on admission. HIDA scan ordered for hydrops per imaging. Objective - Vital Signs Vital signs: Vital Signs Temp 97.7 F 07/30/23 01:08 Pulse 58 L 07/30/23 01:08 Resp 16 07/30/23 01:08 BP 125/78 07/30/23 01:08 Pulse Ox 94 L 07/30/23 01:08 FiO2 Intake & Output 07/29/23 07/30/23 07/30/23 18:59 06:59 18:59 Other: Voiding Method Toilet # Voids 2 2 - Labs CBC & Chem 7: 07/29/23 07:02 07/29/23 07:02 Labs: Abnormal Lab Results - Last 24 Hours (Table) 07/29/23 Range/Units 07:02 Sodium 136 L (137-145) mmol/L BUN 25 H (9-20) mg/dL Total Protein 5.4 L (6.3-8.2) g/dL Albumin 3.1 L (3.5-5.0) g/dL Microbiology - Last 24 Hours (Table) 07/28/23 05:30 Blood Culture - Preliminary Blood
[2023-07-30 08:50] LABS: BUN/Creat Ratio 14.67 Ratio (12.00-20.00); Blood Urea Nitrogen 13.2 mg/dL (9.0-27.0); Chloride 110 mmol/L (96-109); Glucose 97 mg/dL (70-110); Potassium 4.1 mmol/L (3.5-5.5); Sodium 142 mmol/L (135-145)
[2023-07-30 08:51] LABS: ALT 33 U/L (10-49); AST 47 U/L (14-35); Albumin 3.6 d/dL (3.8-4.9); Alkaline Phosphatase 74 U/L (41-126); Bilirubin, Conjugated 0.23 mg/dL (0.20-0.40); Bilirubin,Unconjugated 0.47 mg/dL (0.20-1.00); Calcium 8.8 mg/dL (8.7-10.3); Carbon Dioxide 24.9 mmol/L (21.6-31.8); Globulin 1.5 d/dL (1.6-3.3); Total Bilirubin 0.7 mg/dL (0.3-1.2); Total Protein 5.1 d/dL (6.2-8.2)
[2023-07-30] MEDS: MEMANTINE 10 MG TAB PO SCH (09:43)
[2023-07-30] MEDS: CITALOPRAM HYDROBROMIDE 10 MG TAB PO SCH (09:43)
[2023-07-30] MEDS: PANTOPRAZOLE 40 MG TABLET PO SCH (09:43)
--- NOTE | 2023-07-30 11:38 | P.CONS ---
History of Present Illness - Reason for Consult Consult date: 07/30/23 Diarrhea Requesting physician: Emi Melissa - Chief Complaint Diarrhea - History of Present Illness 77-year-old male with past medical history including dementia, throat cancer, and thyroid disorder presented to the emergency department with complaints of nausea, vomiting and diarrhea. Patient was very weak and felt dizzy as well and fell and hit his head. The weight is at the bedside and most of history is obtained from her which states that he's had 3-4 bouts of this diarrhea associated with nausea and vomiting. Last one was in April prior to this episode. Patient was seen at [facility] according to the and states that he had a C. diff test that was negative. Patient states usually symptoms will last 2-4 days, up to 10-15 stools a day associated with nausea and vomiting. Patient currently denies any diarrhea today. States he is feeling w ell. Denies abdominal pain nausea or vomiting. Denies any blood in his stool. Last colonoscopy about 10 years ago and states that he is due. Patient did have fever on admission with max temp of 101.3. He is currently afebrile. He underwent ultrasound of the abdomen reporting hydropic gallbladder with sludge. No ultrasound evidence for acute cholecystitis. Simple left hepatic lobe cyst. Patient underwent HIDA scan this morning results are currently pending. Yesterday's labs WBC 9.8 hemoglobin 11.6 hematocrit 34 platelet count 138,000 sodium 136 potassium 4.3P 125 creatinine 1.1 total bilirubin 1.2 conjugated bilirubin 0.0 unconjugated bilirubin 1.1 AST 51 AST 31 alkaline phosphatase 60 Review of Systems REVIEW OF SYSTEMS: CARDIOPULMONARY: No chest pain or shortness of breath. Gastrointestinal: No abdominal pain. No nausea or vomiting. No hematemesis, coffee-ground emesis. No rectal bleeding, or melena. Diarrhea improved. Patient DOUBTS of diarrhea that last 2-4 days up to 10-15 times a day. GENITOURINARY: No dysuria or hematuria. MUSCULOSKELETAL: Reports normal range of motion., Joint pain. SKIN: No rashes. No jaundice. ENDOCRINE: No chills, fevers. No excessive weight gain or loss. No polydipsia or polyuria. PSYCHIATRIC: Unremarkable. NEUROLOGY: No change in mental status. Denies dizziness, headache. ENT: Vision unremarkable. CONSTITUTIONAL: No recent weight loss. No fever, chills, night sweats. Past Medical History Past Medical History: Cancer, Dementia, Thyroid Disorder Additional Past Medical History / Comment(s): large fluid collection in scro me[place],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-has difficulty swallowing at times, recommended thickit for fluids but refuses to use it, selvin [place]-no hearing aides, BRADYCARDIA History of Any Multi-Drug Resistant Organisms: None Reported Past Surgical History: Hernia Repair Additional Past Surgical History / Comment(s): tumor removed from throat,hydrocele,sreedhar cataracts Past Anesthesia/Blood Transfusion Reactions: No Reported Reaction, Motion Sickness Past Psychological History: Depression Smoking Status: Former smoker Past Alcohol Use History: None Reported Additional Past Alcohol Use History / Comment(s): quit smoking 50 yrs ago Past Drug Use History: None Reported - Past Family History Mother Family Medical History: No Reported History Medications and Allergies Home Medications Medication Instructions Recorded Confirmed Type Citalopram Hydrobromide [CeleXA] 30 mg PO DAILY 05/03/19 07/28/23 History Memantine [Namenda] 10 mg PO BID 09/11/22 07/28/23 History Cyanocobalamin (Vitamin B-12) 2,500 mcg PO DAILY 07/28/23 07/28/23 History [Vitamin B-12] Levothyroxine Sodium [Synthroid] 125 mcg PO MOTUWETHFRSA 07/28/23 07/28/23 History Pantoprazole [Protonix] 40 mg PO BID 07/28/23 07/28/23 History Allergies Allergy/AdvReac Type Severity Reaction Status Date / Time No Known Allergies Allergy Verified 07/28/23 10:54 Physical Exam Vitals: Vital Signs Temp Pulse Resp BP Pulse Ox 07/30/23 09:52 97.6 F 50 L 16 193/91 97 07/30/23 01:08 97.7 F 58 L 16 125/78 94 L 07/29/23 19:58 18 07/29/23 19:20 97.6 F 56 L 18 169/77 97 07/29/23 13:29 98.0 F 54 L 18 149/90 98 Intake and Output 07/29/23 07/30/23 07/30/23 22:59 06:59 14:59 Other: Voiding Method Toilet Toilet # Voids 1 2 General appearance: The patient is alert, oriented, appears in no acute distress. HET: Head is normocephalic and atraumatic. Conjunctiva pink. Sclera anicteric. Neck: Supple without lymphadenopathy. Trachea midline. Heart: S1 S2. Regular rate and rhythm. Lungs: Clear to auscultation. Abdomen: Soft, nontender, nondistended with bowel sounds. Vocal hernia. No guarding or rigidity. Skin: No rashes. No jaundice. Extremities: Normal skin color and turgor. No pedal edema. Neurological: No focal deficits. Alert and oriented x3. Results CBC & Chem 7: 07/29/23 07:02 07/30/23 06:07 Labs: Abnormal Lab Results - Last 24 Hours (Table) 07/30/23 Range/Units 06:07 Chloride 110 H (96-109) mmol/L AST 47 H (14-35) U/L Total Protein 5.1 L (6.2-8.2) d/dL Albumin 3.6 L (3.8-4.9) d/dL Globulin 1.5 L (1.6-3.3) d/dL Microbiology - Last 24 Hours (Table) 07/28/23 05:30 Blood Culture - Preliminary Blood US - abdomen: report reviewed (See HPI for details) Assessment and Plan (1) Diarrhea Narrative/Plan: 77-year-old male with diarrhea and nausea and vomiting. Unclear etiology. States he gets bouts that last 2-4 days with up to 10-15 bowel movements. Symptoms occur mostly through the night. Last colonoscopy around 10 years ago done at [facility] with Dr. Velasquez. Currently symptoms have all resolved. Denies any blood in his stool or black stool. No stool studies were collected this admission. Gen. surgery is following patient. Patient underwent HIDA scan this morning reporting no scintigraphic evidence for acute cholecystitis. Small bowel activity was visualized somewhat delayed at 75 minutes. Gallbladder ejection fraction not assessed. No further diarrhea today. Plan for outpatient colonoscopy. Current Visit: Yes Status: Acute Code(s): R19.7 - DIARRHEA, UNSPECIFIED SNOMED Code(s): 72827824 (2) Nausea and vomiting Current Visit: Yes Status: Acute Code(s): R11.2 - NAUSEA WITH VOMITING, UNSPECIFIED SNOMED Code(s): 28934178 Plan: 1. Continue symptomatic and supportive care 2. Diet as tolerated 3. Await HIDA scan results 4. Stool studies ordered 5. Plan for outpatient colonoscopy in the next 1-2 weeks Thank you for this consultation, the patient is cleared from gastroenterology for discharge. Dr. Theodora Velasquez I agree with the dictator's note, documented as a scribe by Grecia Chung.
[2023-07-30] MEDS ORDERED: amLODIPine 10 MG TAB PO SCH (11:45)
--- NOTE | 2023-07-30 13:03 | NM ---
EXAMINATION TYPE: NM hepatobiliary wo EF DATE OF EXAM: 07/30/2023 COMPARISON: Ultrasound 07/28/2023 CLINICAL INDICATION: Male, 77 years old with history of Hydrops gallbladder; TECHNIQUE: After the intravenous administration of 5.23 mCi Tc 99m Mebrofenin hepatobiliary scintigra phy is performed. Immediate images post injection. FINDINGS: Satisfactory initial uptake of radiotracer by the liver. Gallbladder is visualized at 15 minutes. Sma ll bowel is visualized at the 75 minute time point. Imaging was stopped at that time. IMPRESSION: No scintigraphic evidence for acute cholecystitis. Small bowel activity was visualized so mewhat delayed, at 75 minutes. Gallbladder ejection fraction not assessed.
[2023-07-30 13:10] VITALS: BP 158/84; PULSE 53; RESP 14; TEMP 99
--- NOTE | 2023-07-31 22:31 | P.PN ---
Subjective Progress Note Date: 07/29/23 77-year-old male here today. Patient Dese for evaluation of weakness. Not feeling well. And a fall. Patient is found to have fever here in the ER. Patient recently has not been feeling quite well. Nausea but she took Zofran for prior to arrival. Patient presents with nausea vomiting diarrhea dizziness lightheadedness and a fall; patient is a poor historian and history is obtained from the chart Blood work completed in ED reveals a WBC of 10.9, hemoglobin of 14.3 and platelet count of 147, sodium 139, potassium 4.2, BUN/creatinine of 19/1.12 and blood glucose of 144, TSH is elevated at 23.7 which is markedly elevated, lactic acid level of 2.3, troponin less than 0.012, UA is positive for WBCs leukocyte esterase and bacteria Objective - Vital Signs Vital signs: Vital Signs Temp 98.0 F 07/29/23 13:29 Pulse 54 L 07/29/23 13:29 Resp 18 07/29/23 13:29 BP 149/90 07/29/23 13:29 Pulse Ox 98 07/29/23 13:29 FiO2 Intake & Output 07/28/23 07/29/23 07/29/23 18:59 06:59 18:59 Weight 82.1 kg Other: # Voids 1 3 1 # Bowel Movements 2 - Exam General appearance: alert, in no apparent distress Head exam: Present: atraumatic, normocephalic, normal inspection Eye exam: Present: normal appearance, PERRL, EOMI. Absent: scleral icterus, conjunctival injection, periorbital swelling ENT exam: Present: normal exam, mucous membranes moist Neck exam: Present: normal inspection. Absent: tenderness, meningismus, lymphadenopathy Respiratory exam: Present: normal lung sounds bilaterally. Absent: respiratory distress, wheezes, rales, rhonchi, stridor Cardiovascular Exam: Present: regular rate, normal rhythm, normal heart sounds. Absent: systolic murmur, diastolic murmur, rubs, gallop, clicks GI/Abdominal exam: Present: soft, normal bowel sounds. Absent: distended, tenderness, guarding, rebound, rigid Extremities exam: Present: normal inspection, full ROM, normal capillary refill. Absent: tenderness, pedal edema, joint swelling, calf tenderness Neurological exam: Present: alert, oriented X3, CN II-XII intact Skin exam: Present: warm, dry, intact, normal color. Absent: rash - Labs CBC & Chem 7: 07/29/23 07:02 07/30/23 06:07 Labs: Abnormal Lab Results - Last 24 Hours (Table) 07/29/23 07/29/23 Range/Units 07:02 07:02 RBC 3.57 L (4.30-5.90) m/uL Hgb 11.6 L (13.0-17.5) gm/dL Hct 34.9 L (39.0-53.0) % Plt Count 138 L (150-450) k/uL Sodium 136 L (137-145) mmol/L BUN 25 H (9-20) mg/dL Total Protein 5.4 L (6.3-8.2) g/dL Albumin 3.1 L (3.5-5.0) g/dL Microbiology - Last 24 Hours (Table) 07/28/23 05:30 Blood Culture - Preliminary Blood Assessment and Plan Assessment: 1. Nausea/vomiting; likely viral gastroenteritis 2. UTI; Rocephin 1 g IV daily; monitor CBC, CMP and pro-calcitonin; antibiotic adjustment pending culture results 3. Elevated liver enzymes with elevated total bilirubin; we will obtain acute hepatitis profile and hepatic ultrasound- which reveals cyst left medial hepatic lobe, hydropic gallbladder with sludge and wall thickness; no sonographic evidence of Spence sign; CBD upper limit of normal - We will consult general surgery for further evaluation and recommendations - Monitor liver enzymes closely 4. Elevated TSH; patient seems clinically euthyroid; we will order a TSH; continue with home dose of Synthroid 5. Vitamin B12 deficiency; patient takes 2500 mcg daily 6. Dementia/depression; Celexa 30 mg daily, Namenda 10 mg twice a day 7. Gastroesophageal reflux disease; Protonix 40 mg twice a day
--- NOTE | 2023-08-01 14:19 | P.DS ---
Providers Date of admission: 07/28/23 07:58 Expected date of discharge: 07/30/23 Attending physician: Tatyana Vega Consults: 07/28/23 16:14 Consult Physician Routine Consulting Provider: Brenda Bernstein Consult Reason/Comments: gallbladder sludge, elevated liver enzymes Do you want consulting provider notified?: Yes 07/29/23 16:14 Consult Physician Routine Consulting Provider: Darlene Velasquez Consult Reason/Comments: diarrhea Do you want consulting provider notified?: Yes, Notify in am Primary care physician: Katherine Garcia Hospital Course: Final diagnosis Nausea/vomiting likely secondary to viral gastroenteritis Acute urinary tract infection, present on admission Elevated liver enzymes with elevated total bilirubin Hydropic gallbladder with sludge, Surgery evaluated no planned of gallbladder removal at this time Vitamin B12 deficiency History of dementia History of depression Gastroesophageal reflux disease GI prophylaxis DVT prophylaxis Full code Discharge disposition Patient is being discharged in a stable condition with guarded prognosis to home. Patient will follow-up with Dr. Garcia in the outpatient setting upon discharge. Patient is to follow-up with GI outpatient for colonoscopy as scheduled. Total time taken is greater than 35 minutes. Hospital course This is a 77 -year-old male who was recently admitted with weakness and dizziness along with fevers and being closely monitored. reports he had a fall and struck his head and CT of the brain was negative. Patient had some nausea with vomiting and diarrhea with dizziness and was monitored closely maintained on gentle hydration and evaluated by physical therapy. Patient also evaluated by GI recommending outpatient follow-up with colonoscopy. Patient has been cleared by consultations for discharge today. Please refer to other consultation notes for further HPI. Currently no reports of chest pain, shortness of breath, or palpitations. Patient is afebrile. No reports of nausea or vomiting and patient is tolerating diet. Patient will be discharged home today. Patient has been instructed to follow-up with primary care provider Dr. Garcia. Physical exam: Gen: This is a 77-year-old male who is awake, alert and oriented 3, thin built, elderly appearing HEENT: Head is atraumatic, normocephalic. Pupils equal, round. Sclerae is anicteric. NECK: Supple. No JVD. No lymphadenopathy. No thyromegaly. LUNGS: Clear to auscultation. No wheezes or rhonchi. No intercostal retractions. HEART: Regular rate and rhythm. No murmur. ABDOMEN: Soft. Bowel sounds are present. No masses. No tenderness. EXTREMITIES: No pedal edema. No calf tenderness. NEUROLOGICAL: Patient is awake, alert and oriented x3. Cranial nerves 2 through 12 are grossly intact. Please refer to medication reconciliation sheet for a list of medications. The impression and plan of care has been dictated by Allyn Machuca, Nurse Practitioner as directed. Dr. Gary MD I have performed a history and examination and MDM of this patient, discussed the same with the dictator, and agree with the dictator's assessment and plan as written ,documented as a scribe. Based on total visit time, I have performed more than 50% of the visit. Patient Condition at Discharge: Fair Plan - Discharge Summary Discharge Rx Participant: No New Discharge Prescriptions: New cefUROXime axetiL [Ceftin] 500 mg PO BID 3 Days #6 tab amLODIPine [Norvasc] 10 mg PO DAILY #30 tab Continue Citalopram Hydrobromide [CeleXA] 30 mg PO DAILY Memantine [Namenda] 10 mg PO BID Pantoprazole [Protonix] 40 mg PO BID Levothyroxine Sodium [Synthroid] 125 mcg PO MOTUWETHFRSA Cyanocobalamin (Vitamin B-12) [Vitamin B-12] 2,500 mcg PO DAILY Discharge Medication List Citalopram Hydrobromide [CeleXA] 30 mg PO DAILY 05/03/19 [History] Memantine [Namenda] 10 mg PO BID 09/11/22 [History] Cyanocobalamin (Vitamin B-12) [Vitamin B-12] 2,500 mcg PO DAILY 07/28/23 [History] Levothyroxine Sodium [Synthroid] 125 mcg PO MOTUWETHFRSA 07/28/23 [History] Pantoprazole [Protonix] 40 mg PO BID 07/28/23 [History] amLODIPine [Norvasc] 10 mg PO DAILY #30 tab 07/30/23 [Rx] cefUROXime axetiL [Ceftin] 500 mg PO BID 3 Days #6 tab 07/30/23 [Rx] Follow up Appointment(s)/Referral(s): Katherine Garcia MD [Primary Care Provider] - 08/01/23 2:00 pm Brenda Bernstein MD [STAFF PHYSICIAN] - 08/06/23 1:30 pm Darlene Velasquez MD [STAFF PHYSICIAN] - 08/09/23 (outpatient colonoscopy scheduled for 08/09/23 at [facility]. The hospital will call the day before with time.) Patient Instructions/Handouts: Cefuroxime (By mouth), Amlodipine (By mouth) Activity/Diet/Wound Care/Special Instructions: Activity Limited until follow-up Follow-up with primary care provider this week Continue taking medications as prescribed Follow-up with GI for outpatient colonoscopy Follow-up Gen. surgery outpatient as needed Discharge Disposition: HOME SELF-CARE
--- NOTE | 2023-08-02 10:43 | CDI ---
Documentation Clarification Form Date: 08/02/2023 10:11:16 AM From: Tiffany Thompson RN, CCDS Email: [email or web address] Admit Date: 07/28/2023 07:58:00 AM Patient Name: Alejandro Velazquez Visit Number: [id number] Discharge Date: 07/30/2023 04:35:00 PM ATTENTION: The Clinical Documentation Specialists (CDI) and [facility] Coding Staff appreciate your assistance in clarifying documentation. Please respond to the clarification below the line at the bottom and electronically sign. The CDI & [facility] Coding staff will review the response and follow-up if needed. Please note: Queries are made part of the Legal Health Record. If you have any questions, please contact the author of this message via ITS. Dr. Emi Melissa The patient had viral gastroenteritis and SIRS criteria. Based on this information and the findings below, is there an additional diagnosis that is clinically appropriate for this patient? History/Risk Factors: Cancer, dementia, thyroid disorder. Presented with nausea/vomiting/diarrhea and weakness. Found to have a fever in the ED. Admitted with viral gastroenteritis. Clinical Indicators: H&P: "Patient is found to have fever in the ER. Patient recently has not been feeling well. Nausea/vomiting; likely viral gastroenteritis." 07/28 WBC: 10.9, Bands>15% 07/28 Lactic acid: 2.3-1.3 07/28 UA + WBC and leukocyte esterase 07/28 Vital signs: Temp 101.1, BP 99/53 Treatment: Ibuprofen 600mg po x1 on 07/28 Antibiotics: IV Rocephin 2gm Q24 07/28-07/30 IV Bolus: 0.9 NS 1L bolus on 07/28 then 130ml/hr Is there an additional diagnosis that is clinically appropriate for this patient? [ ] Viral Sepsis, present on admission [ ] Other, please specify [ ] Unable to determine SIRS Criteria: 2 or more of the following may indicate SIRS Temperature < 96.8F (36C) or > 101.0F (38.3C) Heart Rate > 90 bpm Respiratory Rate > 20 breaths/min or PaCO2 < 32 mmHg White Blood Cell Count > 12,000 or < 4,000 cells/mm3 or > 10% bands MTDD
== END 2023-07-30 16:35 | disposition home or self-care (01) | DRG 872 ==
LOC: EC 04:53 → 5NMEDONC 07:58 → OBSVTOIN 07:58 → 5NMEDONC 09:03
PROVIDERS: ADMIT Hospitalist; ATTEND Hospitalist
DX: A41.89 Other specified sepsis (principal); K82.1 Hydrops of gallbladder; N39.0 Urinary tract infection, site not specified; F03.93 Unspecified dementia, unspecified severity, with mood disturbance; A08.4 Viral intestinal infection, unspecified; K76.89 Other specified diseases of liver; R94.6 Abnormal results of thyroid function studies; E53.8 Deficiency of other specified B group vitamins; K21.9 Gastro-esophageal reflux disease without esophagitis; R13.10 Dysphagia, unspecified; E86.0 Dehydration; K42.9 Umbilical hernia without obstruction or gangrene; K43.9 Ventral hernia without obstruction or gangrene; E07.9 Disorder of thyroid, unspecified; W19.XXXA Unspecified fall, initial encounter; H91.90 Unspecified hearing loss, unspecified ear; Z20.822 Contact with and (suspected) exposure to COVID-19; Z79.890 Hormone replacement therapy; Z79.899 Other long term (current) drug therapy; Z79.1 Long term (current) use of non-steroidal anti-inflammatories (NSAID); Z85.819 Personal history of malignant neoplasm of unspecified site of lip, oral cavity, and pharynx; Z92.3 Personal history of irradiation; Z92.21 Personal history of antineoplastic chemotherapy; Z87.891 Personal history of nicotine dependence; Z28.310 Unvaccinated for COVID-19
CPT/HCPCS: 36415; 70450; 71045; 76705; 78226; 80048; 80053; 80074; 80076; 81001; 82140; 82248; 82607; 83605; 83690; 83735; 84100; 84439; 84443; 84484; 85025; 85610; 85730; 86140; 87040; 87045; 87046; 87636; 93005; 96361; 96365; 96366; 96375; 99285; 99291

== ENCOUNTER → 2023-08-09 | Day surgery (SDC) | payer MEDICARE ==
[2023-08-07 10:25] VITALS: BMI 25.0
[~2023-08-09] MED LIST changes: +HYDROmorphone 0.5 MG/0.5 ML SYRINGE IVP PRN; +LIDOCAINE 1% (10MG/ML) FOR IV START INTRADERMA PRN; +LIDOCAINE 2% INJ 20 MG/ML (2 ML VIAL) ONE; +MIDAZOLAM 2 MG/2 ML VIAL IV PRN; +PROPOFOL 10 MG/ML 20 ML VIAL IV ONE; -Pre Op ABX Message 1 EACH MISC MISCELLANE ONE; -fentaNYL (PF) 50 MCG/ML 2 ML AMP IV PRN
--- NOTE | 2023-08-09 15:03 | P.PCN ---
Date of Procedure: 08/09/23 Procedure(s) Performed: Brief history: Patient is a pleasant 77-year-old white male scheduled for an elective upper endoscopy as well as colonoscopy as a part of evaluation of diminutive episodes of nausea vomiting and diarrhea for the last several months duration. He had he has these episodes that happen once a month and lasts for a couple of days during which time he has at least and 15 loose watery bowel movements daily. He also has /history of GERD and Richard's esophagus Procedure performed: Esophagogastroduodenoscopy with biopsy Colonoscopy with biopsy Preoperative diagnosis: GERD/intermittent nausea vomiting Chronic intermittent diarrhea Anesthesia: MAC Procedure: After informed consent was obtained from the patient was brought into the endoscopy unit and IV sedation was administered by anesthesia under continuous monitoring. Initially upper endoscopy was done. The Olympus GF 160 video endoscope was inserted inserted into the mouth and esophagus intubated without any difficulty and was gradually advanced into the stomach and duodenum and carefully examined. The bulb and second part of the duodenum had decreased duodenal folds with atrophic appearing mucosa suspicious for celiac disease and multiple biopsies were done from this area. The scope was then withdrawn into the stomach adequately insufflated with air and upon careful examination the antrum and body, cardia and fundus appeared normal. The scope was then withdrawn into the esophagus. Moderate size hiatal hernia noted. The GE junction was located at 40 cm to the incisors. There were 2 small tongues of Richard's-appearing visible extent 3-4 mm proximal to the GE junction which was biopsied.. Rest of the esophagus appeared normal. Patient tolerated the procedure well. At this time the patient continued to remain sedation. Initial digital rectal examination was normal. Olympus CF 160 video colonoscope was then inserted into the rectum and gradually advanced to the cecum without any difficulty. Careful examination was performed as the scope was gradually being withdrawn. The prep was poor and several areas of the colon. Thorough irrigation was performed.. The cecum, ascending colon, transverse colon, descending colon, sigmoid colon and rectum appeared normal. Biopsies were done from ascending and descending colon to rule out microscopic/collagenous colitis. Retroflexion was performed in the rectum and no lesions were noted. Patient tolerated the procedure well. Impression: 1. Upper endoscopy revealed decreased duodenal folds with some atrophic- appearing mucosa suspicious for celiac disease status post multiple biopsies, small hiatal hernia and short segment Richard's esophagus 2. Colonoscopy was within normal limits with no evidence of colitis or colorectal neoplasia. Recommendations: Findings of this examination were discussed with the patient as well as his fa eloy. He was advised to follow with the biopsy results. He'll be seen in office in 2-3 weeks. In the meantime we'll obtain serology for celiac disease.
[2023-08-09 15:32] VITALS: TEMP 96.9
[2023-08-09 15:49] VITALS: BP 164/84; PULSE 56; RESP 16
[2023-08-12 16:22] LABS: Gliadin AB IgA, Deaminated POSITIVE; Gliadin AB IgG, Deaminated POSITIVE; Gliadin AB IgG, Unit 78.1 U/mL
== END ==
LOC: ORWHC2ENDO 13:04
PROVIDERS: ATTEND Internal Medicine Gastroenterology
DX: K29.80 Duodenitis without bleeding (principal); K21.00 Gastro-esophageal reflux disease with esophagitis, without bleeding; K52.9 Noninfective gastroenteritis and colitis, unspecified; K44.9 Diaphragmatic hernia without obstruction or gangrene; K22.70 Barrett's esophagus without dysplasia; E03.9 Hypothyroidism, unspecified; Z79.899 Other long term (current) drug therapy
CPT/HCPCS: 88305; 83516 ×4; 45380; 43239; J2704; J2001

== ENCOUNTER 2023-09-01 06:48 | Inpatient (IN) | payer MEDICARE ==
[2023-09-01 07:14] LABS: Basophils % (A) 0 %; Eosinophils # (A) 0.1 k/uL (0-0.7); Eosinophils % (A) 1 %; HCT 48.6 % (39.0-53.0); Lymphocytes % (A) 22 %; MCH 32.4 pg (25.0-35.0); MCHC 32.7 g/dL (31.0-37.0); MCV 99.1 fL (80.0-100.0); Mean Platelet Volume 7.7; Monocytes # (A) 0.8 k/uL (0-1.0); Monocytes % (A) 6 %; Neutrophils # (A) 9.4 k/uL (1.3-7.7); Neutrophils % (A) 69 %; Platelet Count 206 k/uL (150-450); RDW 13.4 % (11.5-15.5); WBC 13.5 k/uL (3.8-10.6)
[2023-09-01 07:21] LABS: ALT 36 U/L (4-49); AST 46 U/L (17-59); African American GFR (CKD) 39 (>60 ml/min/1.73 sqM); Albumin 5.1 g/dL (3.5-5.0); Alkaline Phosphatase 83 U/L (38-126); Amylase 89 U/L (30-110); Anion Gap 15 mmol/L; Blood Urea Nitrogen 46 mg/dL (9-20); Calcium 10.6 mg/dL (8.4-10.2); Carbon Dioxide 23 mmol/L (22-30); Chloride 100 mmol/L (98-107); Glucose 155 mg/dL (74-99); Lipase 92 U/L (23-300); Non-African American GFR(CKD) 33 (>60 ml/min/1.73 sqM); Potassium 4.4 mmol/L (3.5-5.1); Sodium 138 mmol/L (137-145); Total Bilirubin 2.7 mg/dL (0.2-1.3); Total Protein 8.4 g/dL (6.3-8.2)
[2023-09-01 07:27] LABS: HGB 15.9 gm/dL (13.0-17.5)
[2023-09-01] MEDS ORDERED: SODIUM CHLORIDE 0.9% 1,000 ML IV STA ×3 (07:38→09:42)
[2023-09-01] MEDS ORDERED: MORPHINE SULFATE 4 MG/ML SYRINGE IVP STA (07:38)
[2023-09-01] MEDS ORDERED: METOCLOPRAMIDE 5 MG/ML 2 ML VIAL IVP STA (07:38)
--- NOTE | 2023-09-01 07:46 | ED ---
Nausea/Vomiting/Diarrhea HPI - General Chief complaint: Nausea/Vomiting/Diarrhea Stated complaint: N/V/D Time Seen by Provider: 09/01/23 06:57 Source: patient, family, RN notes reviewed Mode of arrival: wheelchair Limitations: no limitations - History of Present Illness Initial comments: This is a 78-year-old male who presents to the emergency department for nausea, vomiting, and diarrhea. Symptoms have been going on for about a day and a half at this point. States that the stool is essentially constant and he has been unable to keep anything down with the nausea. He has been taking multiple doses of [id number] Imodium as well as Zofran with no relief in symptoms. Reports generalized associated abdominal discomfort. He was recently diagnosed with celiac disease, and family states that he does not always eat properly. He also has Alzheimer's, which complicates this as well, and family is unsure if this may be related to a celiac flair up based on consuming something he shouldn't have. Denies any blood in the stool or vomit. He is having muscle cramps that he attributes to dehydration from the vomiting and diarrhea. Denies any fevers, chills, sore throat, cough, dyspnea, chest pain, palpitations, back pain, or headaches. MD complaint: nausea, vomiting, diarrhea, abdominal pain - Related Data Home Medications Medication Instructions Recorded Confirmed Citalopram Hydrobromide [CeleXA] 30 mg PO DAILY 05/03/19 09/01/23 Memantine [Namenda] 10 mg PO BID 09/11/22 09/01/23 Cyanocobalamin (Vitamin B-12) 2,500 mcg PO DAILY 07/28/23 09/01/23 [Vitamin B-12] Levothyroxine Sodium [Synthroid] 125 mcg PO DAILY 07/28/23 09/01/23 Pantoprazole [Protonix] 40 mg PO BID 07/28/23 09/01/23 Fluticasone Propion/Salmeterol 1 puff INHALATION DIRECTED 09/01/23 09/01/23 [Fluticasone-Salmeterol 250-50] Previous Rx's Medication Instructions Recorded amLODIPine [Norvasc] 10 mg PO DAILY #30 tab 07/30/23 Allergies Allergy/AdvReac Type Severity Reaction Status Date / Time No Known Allergies Allergy Verified 09/01/23 14:09 Review of Systems ROS Statement: Those systems with pertinent positive or pertinent negative responses have been documented in the HPI. ROS Other: All systems not noted in ROS Statement are negative. 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 celiac History of Any Multi-Drug Resistant Organisms: None Reported Past Surgical History: Hernia Repair Additional Past Surgical History / Comment(s): tumor removed from throat, hydrocele, sreedhar cataract, LT SPERMATOCELECTOMY, COLONOSCOPY, Past Anesthesia/Blood Transfusion Reactions: No Reported Reaction, Motion Sickness Past Psychological History: Depression Smoking Status: Former smoker Past Alcohol Use History: None Reported Past Drug Use History: None Reported - Past Family History Mother Family Medical History: No Reported History General Exam Limitations: no limitations General appearance: alert, in no apparent distress Head exam: Present: atraumatic, normocephalic, normal inspection Respiratory exam: Present: normal lung sounds bilaterally. Absent: respiratory distress, wheezes, rales, rhonchi, stridor Cardiovascular Exam: Present: regular rate, normal rhythm, normal heart sounds. Absent: systolic murmur, diastolic murmur, rubs, gallop, clicks GI/Abdominal exam: Present: soft, tenderness (epigastric), normal bowel sounds. Absent: distended, guarding, rebound, rigid Neurological exam: Present: alert, oriented X3, CN II-XII intact Psychiatric exam: Present: normal affect, normal mood Skin exam: Present: warm, dry, intact, normal color. Absent: rash Course Vital Signs 09/01/23 09/01/23 09/01/23 06:52 12:55 15:34 Temperature 98.4 F 97.7 F 97.9 F Pulse Rate 73 67 68 Respiratory 18 16 18 Rate Blood Pressure 108/74 125/89 140/86 O2 Sat by Pulse 95 97 97 Oximetry Medical Decision Making - Medical Decision Making This is a 78-year-old male who presents to the emergency department for nausea, vomiting, and diarrhea. Was pt. sent in by a medical professional or institution? @ -No Did you speak to anyone other than the patient for history? @ -His provided the majority of the information due to patient having dementia. Did you review nursing and triage notes? @ -Yes, and I agree, it is accurate with regards to the patient's symptoms. Were old charts reviewed? @ -Abdomen US from 07/28/23 demonstrating hydropic gallbladder with sludge. HIDA scan from 07/30/23 revealing no evidence of acute cholecystitis. Differential Diagnosis? @ -Differential Nausea and Vomiting: Gastroenteritis, cholecystitis, appendicitis, pancreatitis, migraine, benign positional vertigo, food borne illness, pyelonephritis, irritable bowel syndrome, influenza, Covid, GERD, incarcerated hernia, intestinal obstruction, this is not meant to be an all-inclusive list. EKG interpreted by me (3pts min.)? @ -Not obtained X-rays interpreted by me (1pt min.)? @ -Not obtained CT interpreted by me (1pt min.)? @ -Computed tomography scan of the abdomen and pelvis obtained. My interpretation identifies dilation of the gallbladder without evidence of cholelithiasis. U/S interpreted by me (1pt. min.)? @ -Gallbladder ultrasound obtained. My interpretation identifies no evidence of cholelithiasis or gallbladder wall thickening. What testing was considered but not performed? (CT, X-rays, U/S, labs)? Why? @ -None What meds were considered but not given? Why? @ -None Did you discuss the management of the patient with other professionals? @ -Yes, Dr. Capone, GI at [facility]. He advised that based on his workup at this time and because the conjugated bilirubin is 0, patient does not need any intervention at this time. He advised an MRCP at our facility with plan to transfer if that returned abnormal. I then spoke with Dr. Murray, who accepts the patient for admission. Did you reconcile home meds? @ -No Was smoking cessation discussed for >3mins.? @ -No Was critical care preformed (if so, how long)? @ -No Were there social determinants of health that impacted care today? How? (Homelessness, low income, unemployed, alcoholism, drug addiction, transportation, low edu. Level, literacy, decrease access to med. care, fci, rehab)? @ -No Was there de-escalation of care discussed even if they declined? (Discuss DNR or withdrawal of care, Hospice)? @ -No What co-morbidities impacted this encounter? (DM, HTN, Smoking, COPD, CAD, Cancer, CVA, Hep., AIDS, mental health diagnosis, sleep apnea, morbid obesity)? @ -Dementia, GERD, celiac disease Was patient admitted / discharged? @ -Admitted. Lab work obtained revealing leukocytosis and an acute kidney injury with a creatinine of 1.91 and GFR of 33. Bilirubin elevated at 2.7. Fractionated bilirubin obtained with a conjugated bilirubin of 0 and uncon jugated bilirubin of 2.2. COVID, influenza, and RSV testing were negative. C. diff negative. When he was admitted here last month, he did have an ultrasound demonstrating hydropic gallbladder with biliary sludge. A follow-up HIDA scan was performed, without findings of cholecystitis. Given the elevation in bilirubin when compared with prior, repeat gallbladder ultrasound was obtained. This revealed dilated CBD and gallbladder, however visualization was limited by overlying bowel gas. We subsequently proceeded with a computed tomography scan of the abdomen and pelvis. This revealed a distended and hydropic gallbladder measuring up to 13.9 x 6 cm. There was no significant wall thickening or adjacent fat stranding. Extrahepatic biliary system is dilated extending into the patella measuring up to 13 mm. ERCP and/or MRCP was advised. His symptoms of pain, nausea, and vomiting were well controlled with IV fluids, morphine, and Reglan. He received a total of 2 L of IV fluids and was also started on maintenance fluids at 130 mL an hour. I spoke with gastroenterology and [facility]. They advised that based on the imaging results and because conjugated bilirubin was 0, they were not concerned about obstruction and there is nothing to do from their perspective at this time, and subsequently declined the transfer. They requested we do an MRCP here, and they would be willing to accept the patient for transfer if that returned abnormal for signs of obstruction. Undiagnosed new problem with uncertain prognosis? @ -None Drug Therapy requiring intensive monitoring for toxicity (Heparin, Nitro, Insulin, Cardizem)? @ -None Were any procedures done? @ -None Diagnosis/symptom? @ -Epigastric pain, N/V/D, CANDY Acute, or Chronic, or Acute on Chronic? @ -Acute Uncomplicated (without systemic symptoms) or Complicated (systemic symptoms)? @ -Complicated Side effects of treatment? @ -None Exacerbation, Progression, or Severe Exacerbation] @ -Not applicable Poses a threat to life or bodily function? @ -Yes This case was discussed in detail with the attending ED physician, Dr. Do. Presentation, findings, and treatment plan discussed in detail as well. - Lab Data Result diagrams: 09/01/23 06:57 09/01/23 06:57 Lab Results 09/01/23 09/01/23 09/01/23 Range/Units 06:57 06:57 06:57 WBC 13.5 H (3.8-10.6) k/uL RBC 4.90 (4.30-5.90) m/uL Hgb 15.9 D (13.0-17.5) gm/dL Hct 48.6 (39.0-53.0) % MCV 99.1 (80.0-100.0) fL MCH 32.4 (25.0-35.0) pg MCHC 32.7 (31.0-37.0) g/dL RDW 13.4 (11.5-15.5) % Plt Count 206 (150-450) k/uL MPV 7.7 Neutrophils % 69 % Lymphocytes % 22 % Monocytes % 6 % Eosinophils % 1 % Basophils % 0 % Neutrophils # 9.4 H (1.3-7.7) k/uL Lymphocytes # 3.0 (1.0-4.8) k/uL Monocytes # 0.8 (0-1.0) k/uL Eosinophils # 0.1 (0-0.7) k/uL Basophils # 0.0 (0-0.2) k/uL Sodium 138 (137-145) mmol/L Potassium 4.4 (3.5-5.1) mmol/L Chloride 100 (98-107) mmol/L Carbon Dioxide 23 (22-30) mmol/L Anion Gap 15 mmol/L BUN 46 H (9-20) mg/dL Creatinine 1.91 H (0.66-1.25) mg/dL Est GFR (CKD-EPI)AfAm 39 (>60 ml/min/1.73 sqM) Est GFR (CKD-EPI)NonAf 33 (>60 ml/min/1.73 sqM) Glucose 155 H (74-99) mg/dL Plasma Lactic Acid Shaji 1.3 (0.7-2.0) mmol/L Calcium 10.6 H (8.4-10.2) mg/dL Magnesium (1.6-2.3) mg/dL Total Bilirubin 2.7 H (0.2-1.3) mg/dL Conjugated Bilirubin (0.0-0.3) mg/dL Unconjugated Bilirubin (0.0-1.1) mg/dL Delta Bilirubin (0.0-0.2) mg/dL AST 46 (17-59) U/L ALT 36 (4-49) U/L Alkaline Phosphatase 83 (38-126) U/L Total Protein 8.4 H (6.3-8.2) g/dL Albumin 5.1 H (3.5-5.0) g/dL Amylase 89 (30-110) U/L Lipase 92 (23-300) U/L C. difficile (EIA) Intrp (Negative) Influenza Type A (PCR) (Not Detectd) Influenza Type B (PCR) (Not Detectd) RSV (PCR) (Not Detectd) SARS-CoV-2 (PCR) (Not Detectd) 09/01/23 09/01/23 09/01/23 Range/Units 07:31 08:05 08:05 WBC (3.8-10.6) k/uL RBC (4.30-5.90) m/uL Hgb (13.0-17.5) gm/dL Hct (39.0-53.0) % MCV (80.0-100.0) fL MCH (25.0-35.0) pg MCHC (31.0-37.0) g/dL RDW (11.5-15.5) % Plt Count (150-450) k/uL MPV Neutrophils % % Lymphocytes % % Monocytes % % Eosinophils % % Basophils % % Neutrophils # (1.3-7.7) k/uL Lymphocytes # (1.0-4.8) k/uL Monocytes # (0-1.0) k/uL Eosinophils # (0-0.7) k/uL Basophils # (0-0.2) k/uL Sodium (137-145) mmol/L Potassium (3.5-5.1) mmol/L Chloride (98-107) mmol/L Carbon Dioxide (22-30) mmol/L Anion Gap mmol/L BUN (9-20) mg/dL Creatinine (0.66-1.25) mg/dL Est GFR (CKD-EPI)AfAm (>60 ml/min/1.73 sqM) Est GFR (CKD-EPI)NonAf (>60 ml/min/1.73 sqM) Glucose (74-99) mg/dL Plasma Lactic Acid Shaji (0.7-2.0) mmol/L Calcium (8.4-10.2) mg/dL Magnesium 1.9 (1.6-2.3) mg/dL Total Bilirubin 2.6 H (0.2-1.3) mg/dL Conjugated Bilirubin 0.0 (0.0-0.3) mg/dL Unconjugated Bilirubin 2.2 H (0.0-1.1) mg/dL Delta Bilirubin 0.4 H (0.0-0.2) mg/dL AST (17-59) U/L ALT (4-49) U/L Alkaline Phosphatase (38-126) U/L Total Protein (6.3-8.2) g/dL Albumin (3.5-5.0) g/dL Amylase (30-110) U/L Lipase (23-300) U/L C. difficile (EIA) Intrp Negative (Negative) Influenza Type A (PCR) Not Detected (Not Detectd) Influenza Type B (PCR) Not Detected (Not Detectd) RSV (PCR) Not Detected (Not Detectd) SARS-CoV-2 (PCR) Not Detected (Not Detectd) - Radiology Data Radiology results: report reviewed, image reviewed Disposition Clinical Impression: Epigastric pain, CANDY (acute kidney injury), Nausea vomiting and diarrhea Disposition: ADMITTED IP TO THIS HOSP
[2023-09-01 08:44] LABS: Bilirubin, Delta 0.4 mg/dL (0.0-0.2); Bilirubin,Unconjugated 2.2 mg/dL (0.0-1.1); Magnesium 1.9 mg/dL (1.6-2.3); Total Bilirubin 2.6 mg/dL (0.2-1.3)
--- NOTE | 2023-09-01 09:36 | US ---
EXAMINATION TYPE: US gallbladder DATE OF EXAM: COMPARISON: None CLINICAL INDICATION: Male, 78 years old with history of Epigastric pain, elevated bilirubin; Pain. H x of distended GB and liver cyst. TECHNIQUE: Multiple sonographic images of the right upper quadrant are obtained. FINDINGS: EXAM MEASUREMENTS: Liver Length: 15.3 cm Gallbladder Wall: 0.2 cm CBD: 1.2 cm Right Kidney: 9.3 x 5.2 x 6.3 cm BALL MILL OPERATOR NOTES:limited due to bowel gas Pancreas: Tail obscured by overlying bowel gas. Main pancreatic duct - 2.6 mm Liver: Right anterior cystic appearing lesion - 3.3 x 2.9 x 3.0 cm with no abnormal Doppler flow dem onstrated Gallbladder: Appears distended measuring 13.7 cm in length. No wall thickening or shadowing gallsto ne seen. Evidence for sonographic Spence's sign: neg CBD: Dilated Right Kidney: Limited due to bowel gas, no prominent masses or lesions seen at time of scan IMPRESSION: Limited study. Mildly dilated CBD and gallbladder, without calcified stone identified. Please correlate clinically, with LFTs. If concern persists, MRCP may be considered for further evaluation.
[2023-09-01] MEDS ORDERED: ORPHENADRINE 30 MG/ML 2 ML VIAL IVP STA (09:57)
--- NOTE | 2023-09-01 10:14 | CT ---
EXAMINATION TYPE: CT abdomen pelvis wo con CT DLP: 507.8 mGycm, Automated exposure control for dose reduction was used. DATE OF EXAM: 09/01/2023 9:59 AM COMPARISON: Ultrasound same day CLINICAL INDICATION:Male, 78 years old with history of Epigastric pain, abnormal gallbladder US; Epig astric pain, Abnormal gallbladder US TECHNIQUE: Axial CT of the abdomen and pelvis. Sagittal and coronal reformats were created on a REMOT[employer] workstation. Contrast used: mL of , (none if empty) Oral contrast used: without Oral Contrast (none if empty) FINDINGS: LOWER CHEST: Heart is mildly enlarged for size. There is coronary artery calcifications. ABDOMEN LIVER: Unremarkable GALLBLADDER AND BILE DUCTS: The gallbladder is markedly distended and hydropic measuring up to 13.9 x 6.0 cm. No significant wall thickening or adjacent fat stranding is noted however. Extra hepatic sreedhar iary system is dilated extending to the papilla measuring up to 13 mm. PANCREAS: Unremarkable. SPLEEN: Unremarkable. ADRENAL GLANDS: Unremarkable. KIDNEYS AND URETERS: No evidence of hydronephrosis or renal calculus. The ureters are unremarkable. PELVIS BLADDER: Unremarkable REPRODUCTIVE: Unremarkable. ABDOMEN & PELVIS STOMACH AND BOWEL: No evidence of bowel obstruction. Moderate stool seen throughout the colon PERITONEUM/RETROPERITONEUM: No evidence of pneumoperitoneum or free fluid. VASCULATURE: Mild atherosclerotic calcifications are present throughout the abdominal aorta and its b ranches. No evidence of aortic aneurysm. MUSCULOSKELETAL: No acute osseous abnormalities prominent right inguinal lymph node measuring up to 1 1 mm in short axis. LYMPH NODES: No gross evidence for lymphadenopathy. SOFT TISSUE/ABDOMINAL WALL: Fat-containing buccal hernia. Surgical clips in the left inguinal region. IMPRESSION: 1. Hydropic gallbladder without evidence for obstructing calculus. Additionally the extra hepatic bi liary system is dilated up to 13 mm. Further evaluated with ERCP and/or MRCP may be of benefit 2. Large stool throughout the colon which is a watery appearance, correlate for diarrhea.
[2023-09-01] MEDS ORDERED: NALOXONE 0.4 MG/ML 1 ML VIAL IV PRN (12:35)
[2023-09-01] MEDS ORDERED: ONDANSETRON 4 MG/2 ML VIAL IVP PRN (12:35)
[2023-09-01] MEDS ORDERED: MORPHINE SULFATE 4 MG/ML SYRINGE IV PRN (12:35)
[2023-09-01] MEDS ORDERED: ACETAMINOPHEN TAB 325 MG TAB PO PRN (12:35)
[2023-09-01] MEDS ORDERED: HYDROcodone/APAP 5-325MG 1 EACH TAB PO PRN (12:35)
[2023-09-01] MEDS ORDERED: DIPHENOX-ATROP 2.5-0.025 MG 1 EACH TAB PO PRN (15:12)
--- NOTE | 2023-09-01 15:15 | P.HPIM ---
History of Present Illness H&P Date: 09/01/23 Chief Complaint: Nausea vomiting diarrhea abdominal pain * 78-year-old gentleman with past medical history significant for heart block with gallbladder, hypertension, dementia, hypothyroid presented to the emergency department with complains of nausea, vomiting diarrhea. Patient states symptom onset was 2 days prior to arrival. Patient had multiple episodes of nausea and diarrhea. Patient said he was not able to keep anything down. Patient tried [id number] Imodium without any relief. Patient states she was recently diagnosed with celiac disease as well. He d ecided come to emergency department secondary to persistent symptoms * Workup initiated in ER included CBC which showed white cell count of 13.5 hemoglobin of 15.9 platelet count of 206. Serum chemistry showed sodium 138 potassium 4.4, BUN 46 creatinine 1.91. A mile is not 18 and lipase 92 * Patient tested negative for Covid, influenza and C. diff * He was recently in the hospital with similar presentation and was seen by general surgery. Had a HIDA scan done which was negative. Patient was noted to have hyperbilirubinemia which is chronically elevated. * While in ER ED team tried to transfer to the [facility] for further assessment however per chart review also was denied. And recommended MRCP which is ordered * Gen. surgery team consulted as well to evaluate for cholecystectomy * Patient denies associated fever, chills or my chest pain. While in ER patient felt better and symptoms had improved REVIEW OF SYSTEMS: Nausea, vomiting, abdominal pain, diarrhea CONSTITUTIONAL: No fever, no malaise, no fatigue. HEENT: No recent visual problems or hearing problems. Denied any sore throat. CARDIOVASCULAR: No chest pain, orthopnea, PND, no palpitations, no syncope. PULMONARY: No shortness of breath, no cough, no hemoptysis. GASTROINTESTINAL: Nausea, vomiting, abdominal pain, diarrhea NEUROLOGICAL: No headaches, no weakness, no numbness. HEMATOLOGICAL: Denies any bleeding or petechiae. GENITOURINARY: Denies any burning micturition, frequency, or urgency. MUSCULOSKELETAL/RHEUMATOLOGICAL: Denies any joint pain, swelling, or any muscle pain. ENDOCRINE: Denies any polyuria or polydipsia. The rest of the 14-point review of systems is negative. PHYSICAL EXAMINATION: GENERAL: The patient is alert and oriented x3, not in any acute distress. Well developed, well nourished. HEENT: Pupils are round and equally reacting to light. EOMI. No scleral icterus. No conjunctival pallor. Normocephalic, atraumatic. No pharyngeal erythema. No thyromegaly. CARDIOVASCULAR: S1 and S2 present. No murmurs, rubs, or gallops. PULMONARY: Chest is clear to auscultation, no wheezing or crackles. ABDOMEN: Soft, nontender, nondistended, normoactive bowel sounds. No palpable organomegaly. MUSCULOSKELETAL: No joint swelling or deformity. EXTREMITIES: No cyanosis, clubbing, or pedal edema. NEUROLOGICAL: Gross neurological examination did not reveal any focal deficits. SKIN: No rashes. 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 celiac History of Any Multi-Drug Resistant Organisms: None Reported Past Surgical History: Hernia Repair Additional Past Surgical History / Comment(s): tumor removed from throat, hydrocele, sreedhar cataract, LT SPERMATOCELECTOMY, COLONOSCOPY, Past Anesthesia/Blood Transfusion Reactions: No Reported Reaction, Motion Sickness Past Psychological History: Depression Smoking Status: Former smoker Past Alcohol Use History: None Reported Past Drug Use History: None Reported - Past Family History Mother Family Medical History: No Reported History Medications and Allergies Home Medications Medication Instructions Recorded Confirmed Type Citalopram Hydrobromide [CeleXA] 30 mg PO DAILY 05/03/19 09/01/23 History Memantine [Namenda] 10 mg PO BID 09/11/22 09/01/23 History Cyanocobalamin (Vitamin B-12) 2,500 mcg PO DAILY 07/28/23 09/01/23 History [Vitamin B-12] Levothyroxine Sodium [Synthroid] 125 mcg PO DAILY 07/28/23 09/01/23 History Pantoprazole [Protonix] 40 mg PO BID 07/28/23 09/01/23 History amLODIPine [Norvasc] 10 mg PO DAILY #30 tab 07/30/23 09/01/23 Rx Fluticasone Propion/Salmeterol 1 puff INHALATION DIRECTED 09/01/23 09/01/23 History [Fluticasone-Salmeterol 250-50] Allergies Allergy/AdvReac Type Severity Reaction Status Date / Time No Known Allergies Allergy Verified 09/01/23 14:09 Physical Exam Vitals: Vital Signs Temp Pulse Resp BP Pulse Ox 09/01/23 12:55 97.7 F 67 16 125/89 97 09/01/23 06:52 98.4 F 73 18 108/74 95 Intake and Output 09/01/23 09/01/23 09/01/23 06:59 14:59 22:59 Other: Weight 78.925 kg Results CBC & Chem 7: 09/01/23 06:57 09/01/23 06:57 Labs: Abnormal Lab Results - Last 24 Hours (Table) 09/01/23 09/01/23 09/01/23 Range/Units 06:57 06:57 08:05 WBC 13.5 H (3.8-10.6) k/uL Neutrophils # 9.4 H (1.3-7.7) k/uL BUN 46 H (9-20) mg/dL Creatinine 1.91 H (0.66-1.25) mg/dL Glucose 155 H (74-99) mg/dL Calcium 10.6 H (8.4-10.2) mg/dL Total Bilirubin 2.7 H 2.6 H (0.2-1.3) mg/dL Unconjugated Bilirubin 2.2 H (0.0-1.1) mg/dL Delta Bilirubin 0.4 H (0.0-0.2) mg/dL Total Protein 8.4 H (6.3-8.2) g/dL Albumin 5.1 H (3.5-5.0) g/dL Assessment and Plan Assessment: Assessment and plan * Recurrent nausea/vomiting diarrhea with hyperbilirubinemia rule out hepatobiliary etiology * Diarrhea rule out infectious etiology * Acute renal failure * History of dementia * Hypothyroid * History of hypertension * In regards to nausea/vomiting diarrhea patient had CT abdomen and pelvis completed in ER which showed hydrophilic gallbladder, ultrasound abdomen showed dilated CBD no gallstones were noted or no biliary stones noted stones noted. CT abdomen did show extensive stool burden. Patient started on Lomotil, when necessary Zofran, IV Protonix * In regards to diarrhea continue patient on Lomotil, stool C. diff negative stool cultures ordered * In regards to acute renal failure continue patient on IV fluid. Follow up on renal profile * In regards to hypothyroid continue Synthyroid * In regards to history of hypertension continue amlodipine * CODE STATUS is full code
[2023-09-01] MEDS: CYANOCOBALAMIN 500 MCG TAB PO SCH (15:31)
[2023-09-01] MEDS: CITALOPRAM HYDROBROMIDE 10 MG TAB PO SCH (15:32)
[2023-09-01] MEDS: SYMBICORT 80-4.5 MCG INHALER INHALATION SCH ×3 (15:48→20:29)
[2023-09-01] MEDS: PANTOPRAZOLE 40 MG TABLET PO SCH (16:44)
[2023-09-01] MEDS: MEMANTINE 10 MG TAB PO SCH (20:50)
[2023-09-02] MEDS: LEVOTHYROXINE 125 MCG TAB PO SCH (06:37)
[2023-09-02] MEDS: SYMBICORT 80-4.5 MCG INHALER INHALATION SCH ×2 (08:14→18:35)
[2023-09-02] MEDS: CITALOPRAM HYDROBROMIDE 10 MG TAB PO SCH (08:25)
[2023-09-02] MEDS: PANTOPRAZOLE 40 MG TABLET PO SCH ×2 (08:25→17:53)
[2023-09-02] MEDS: CYANOCOBALAMIN 500 MCG TAB PO SCH (08:25)
[2023-09-02] MEDS: amLODIPine 10 MG TAB PO SCH (08:25)
[2023-09-02] MEDS: ENOXAPARIN 40 MG/0.4 ML SYRINGE SQ SCH (08:25)
[2023-09-02] MEDS: MEMANTINE 10 MG TAB PO SCH ×2 (08:29→20:06)
[2023-09-02 11:09] LABS: ALT 109 U/L (10-49); AST 146 U/L (14-35); Albumin 3.9 d/dL (3.8-4.9); Albumin/Globulin Ratio 2.05 Ratio (1.60-3.17); Alkaline Phosphatase 116 U/L (41-126); BUN/Creat Ratio 33.25 Ratio (12.00-20.00); Blood Urea Nitrogen 39.9 mg/dL (9.0-27.0); Calcium 9.2 mg/dL (8.7-10.3); Carbon Dioxide 22.4 mmol/L (21.6-31.8); Chloride 106 mmol/L (96-109); Globulin 1.9 d/dL (1.6-3.3); Glucose 99 mg/dL (70-110); Sodium 137 mmol/L (135-145); Total Bilirubin 3.5 mg/dL (0.3-1.2); Total Protein 5.8 d/dL (6.2-8.2)
[2023-09-02 11:22] LABS: HCT 39.1 % (39.6-50.0); HGB 12.5 d/dL (13.0-17.0); Mean Platelet Volume 10.4 FL (9.5-12.2); NRBC Per 100 WBC 0 X 10*3/uL (0.00-0.01); Platelet Count 150 X 10*3/uL (140-440); RBC 4.03 X 10*6/uL (4.40-5.60); RDW 14.2 % (11.5-14.5); WBC 7.58 X 10*3/uL (4.50-10.00)
--- NOTE | 2023-09-02 11:50 | P.PN ---
Subjective Progress Note Date: 09/02/23 * 78-year-old gentleman with past medical history significant for heart block with gallbladder, hypertension, dementia, hypothyroid presented to the emergency department with complains of nausea, vomiting diarrhea. Patient states symptom onset was 2 days prior to arrival. Patient had multiple episodes of nausea and diarrhea. Patient said he was not able to keep anything down. Patient tried [id number] Imodium without any relief. Patient states she was recently diagnosed with celiac disease as well. He decided come to emergency department secondary to persistent symptoms * Workup initiated in ER included CBC which showed white cell count of 13.5 hemoglobin of 15.9 platelet count of 206. Serum chemistry showed sodium 138 potassium 4.4, BUN 46 creatinine 1.91. A mile is not 18 and lipase 92 * Patient tested negative for Covid, influenza and C. diff * He was recently in the hospital with similar presentation and was seen by general surgery. Had a HIDA scan done which was negative. Patient was noted to have hyperbilirubinemia which is chronically elevated. * While in ER ED team tried to transfer to the [facility] for further assessment however per chart review also was denied. And recommended MRCP which is ordered * Gen. surgery team consulted as well to evaluate for cholecystectomy * 09/02: Patient seen and evaluated bedside, patient denies of abdominal pain, denies fever, chest pain,. Nausea and vomiting has improved. Patient does have diarrhea continue with fluid resuscitation. WBC has improved from 13.5- 7.58. Hemoglobin noted from 15-12 drop is likely dilutional. Renal function creatinine improved from 1.9-1.2. Transient up in AST ALT noted. Bilirubin 3.5. We'll get MRCP scheduled. Based MRCP results we'll determine further interventions. Appreciate input from general surgery team as well. Objective - Vital Signs Vital signs: Vital Signs Temp 97.5 F L 09/02/23 07:28 Pulse 53 L 09/02/23 07:28 Resp 17 09/02/23 07:28 BP 125/74 09/02/23 07:28 Pulse Ox 98 09/02/23 07:28 FiO2 Intake & Output 09/01/23 09/02/23 09/02/23 18:59 06:59 18:59 Weight 78.925 kg Other: Voiding Method Bedside Commode # Voids 2 # Bowel Movements 1 - Exam PHYSICAL EXAMINATION: GENERAL: The patient is alert and oriented x3, not in any acute distress. Well developed, well nourished. HEENT: Pupils are round and equally reacting to light. EOMI. CARDIOVASCULAR: S1 and S2 present. No murmurs, rubs, or gallops. PULMONARY: Chest is clear to auscultation, no wheezing or crackles. ABDOMEN: Soft, nontender, nondistended, normoactive bowel sounds. MUSCULOSKELETAL: No joint swelling or deformity. EXTREMITIES: No cyanosis, clubbing, or pedal edema. NEUROLOGICAL: Gross neurological examination did not reveal any focal deficits. Impaired memory SKIN: No rashes. - Labs CBC & Chem 7: 09/02/23 06:42 09/02/23 06:42 Labs: Abnormal Lab Results - Last 24 Hours (Table) 09/02/23 09/02/23 Range/Units 06:42 06:42 RBC 4.03 L (4.40-5.60) X 10*6/uL Hgb 12.5 L (13.0-17.0) d/dL Hct 39.1 L (39.6-50.0) % BUN 39.9 H (9.0-27.0) mg/dL BUN/Creatinine Ratio 33.25 H (12.00-20.00) Ratio Total Bilirubin 3.5 H (0.3-1.2) mg/dL AST 146 H (14-35) U/L ALT 109 H (10-49) U/L Total Protein 5.8 L (6.2-8.2) d/dL Assessment and Plan Assessment: Assessment and plan * Recurrent nausea/vomiting diarrhea with hyperbilirubinemia rule out hepatobiliary etiology * Diarrhea rule out infectious etiology * Transaminitis * Acute renal failure * History of dementia * Hypothyroid * History of hypertension * In regards to nausea/vomiting diarrhea patient had CT abdomen and pelvis completed in ER which showed hydrophilic gallbladder, ultrasound abdomen showed dilated CBD no gallstones were noted or no biliary stones noted stones noted. CT abdomen did show extensive stool burden. Patient started on Lomo til, when necessary Zofran, IV Protonix * In regards to diarrhea continue patient on Lomotil, probiotics , stool C. diff negative ,stool cultures ordered, continue IV fluid resuscitation * In regards to acute renal failure continue patient on IV fluid. Follow up on renal profile * In regards to hypothyroid continue Synthyroid * In regards to history of hypertension continue amlodipine * Avoid hepatotoxic medications * Based on MRCP findings we'll determine next step if patient needs ERCP, in that case he will need a potential transfer * CODE STATUS is full code
[2023-09-02] MEDS: LACTOBACILLUS ACIDOPHILUS/PECT 1 EACH CAPSULE PO SCH ×3 (12:43→20:06)
[2023-09-02] MEDS: SODIUM CHLORIDE 0.9% 1,000 ML IV SCH (12:58)
[2023-09-02] MEDS ORDERED: LORazepam 2 MG/ML INJ IV PRN (13:07)
[2023-09-02] MEDS ORDERED: MORPHINE SULFATE 2 MG/ML SYRINGE IV PRN (13:08)
--- NOTE | 2023-09-02 15:33 | P.GSCN ---
History of Present Illness Consult date: 09/02/23 History of present illness: CHIEF COMPLAINT: Abdominal pain HISTORY OF PRESENT ILLNESS: This is a 78-year-old male with a known history of Alzheimer's. Patient presented to the hospital plans of nausea vomiting and diarrhea for the last day and a half. Patient has been having similar symptoms since March. He was recently diagnosed with celiac disease. Patient had been seen in July for hydropic gallbladder sludge. HIDA scan was normal and no plan for gallbladder removal at that time. Ultrasound had shown evidence of a distended gallbladder measuring 13.7 cm in length. CAT scan had shown hydropic gallbladder without evidence for obstructing calculus. Extrahepatic biliary system is dilated up to 13 mm. Patient scheduled for an MRCP tomorrow. Current ly denies any abdominal pain. No nausea or vomiting. PAST MEDICAL HISTORY: Throat cancer had received radiation and chemo.Dementia, GERD/Reflux, Thyroid Disorder, celiac disease PAST SURGICAL HISTORY: Tumor removed from throat, SPERMATOCELECTOMY, COLONOSCOPY MEDICATIONS: See below ALLERGIES: See below SOCIAL HISTORY: No illicit drug use. REVIEW OF SYSTEMS: CONSTITUTIONAL: Denies fever or chills. HEENT: Denies blurred vision, vision changes, or eye pain. Denies hemoptysis CARDIOVASCULAR: Denies chest pain or pressure. RESPIRATORY: No shortness of breath. GASTROINTESTINAL: See HPI for pertinent findings HEMATOLOGIC: Denies bleeding disorders. GENITOURINARY: Denies any blood in urine or increased urinary frequency. SKIN: Denies pruitis. Denies rash. PHYSICAL EXAM: VITAL SIGNS: Reviewed GENERAL: Well-developed in no acute distress. HEENT: No sclera icterus. Extraocular movements grossly intact. Moist buccal mucosa. Head is atraumatic, normocephalic. No nasal drainage. ABDOMEN: Soft. Nondistended. nontender NEUROLOGIC: Alert and awake LABORATORY DATA: WBC 13.5-7.58 hgb 12.5 plt 150 Na 137 K 4.0 cr 1.2 Total bili 3.5 AST is up from 46-146 ALT 36 up to 109 alk phos 116 IMAGING: Computed tomography scan abdomen and pelvis hydropic gallbladder without evidenc e for obstructing calculus. Additionally the extrahepatic biliary system is dilated up to 13 mm. Large stool throughout the colon which is watery appearance correlate for diarrhea. Gallbladder ultrasound report states mildly dilated CBD and gallbladder without calcified stone identified. ASSESSMENT: 1. Hydropic gallbladder with mildly dilated CBD 2. Elevated LFTs and total bilirubin PLAN: -Patient scheduled for laparoscopic cholecystectomy Saturday with Dr. Lewis -Patient scheduled for MRCP tomorrow -Okay for clear liquids -Repeat LFTs in a.m. -Continue supportive care Physician Computer Customer Support Specialist note has been reviewed by physician. Signing provider agrees with the documented findings, assessment, and plan of care. 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 celiac History of Any Multi-Drug Resistant Organisms: None Reported Past Surgical History: Hernia Repair Additional Past Surgical History / Comment(s): tumor removed from throat, hydrocele, sreedhar cataract, LT SPERMATOCELECTOMY, COLONOSCOPY, Past Anesthesia/Blood Transfusion Reactions: No Reported Reaction, Motion Sickness Past Psychological History: Depression Smoking Status: Former smoker Past Alcohol Use History: None Reported Past Drug Use History: None Reported - Past Family History Mother Family Medical History: No Reported History Medications and Allergies Home Medications Medication Instructions Recorded Confirmed Type Citalopram Hydrobromide [CeleXA] 30 mg PO DAILY 05/03/19 09/01/23 History Memantine [Namenda] 10 mg PO BID 09/11/22 09/01/23 History Cyanocobalamin (Vitamin B-12) 2,500 mcg PO DAILY 07/28/23 09/01/23 History [Vitamin B-12] Levothyroxine Sodium [Synthroid] 125 mcg PO DAILY 07/28/23 09/01/23 History Pantoprazole [Protonix] 40 mg PO BID 07/28/23 09/01/23 History amLODIPine [Norvasc] 10 mg PO DAILY #30 tab 07/30/23 09/01/23 Rx Fluticasone Propion/Salmeterol 1 puff INHALATION DIRECTED 09/01/23 09/01/23 History [Fluticasone-Salmeterol 250-50] Allergies Allergy/AdvReac Type Severity Reaction Status Date / Time No Known Allergies Allergy Verified 09/01/23 14:09 Surgical - Exam Vital Signs Temp Pulse Resp BP Pulse Ox 98.4 F 73 18 108/74 95 09/01/23 06:52 09/01/23 06:52 09/01/23 06:52 09/01/23 06:52 09/01/23 06:52 Results - Labs 09/02/23 06:42 09/02/23 06:42 Abnormal Lab Results - Last 24 Hours (Table) 09/02/23 09/02/23 Range/Units 06:42 06:42 RBC 4.03 L (4.40-5.60) X 10*6/uL Hgb 12.5 L (13.0-17.0) d/dL Hct 39.1 L (39.6-50.0) % BUN 39.9 H (9.0-27.0) mg/dL BUN/Creatinine Ratio 33.25 H (12.00-20.00) Ratio Total Bilirubin 3.5 H (0.3-1.2) mg/dL AST 146 H (14-35) U/L ALT 109 H (10-49) U/L Total Protein 5.8 L (6.2-8.2) d/dL Diabetes panel 09/02/23 Range/Units 06:42 Sodium 137 (135-145) mmol/L Potassium 4.0 (3.5-5.5) mmol/L Chloride 106 (96-109) mmol/L Carbon Dioxide 22.4 (21.6-31.8) mmol/L BUN 39.9 H (9.0-27.0) mg/dL Creatinine 1.2 (0.6-1.5) mg/dL Glucose 99 (70-110) mg/dL Calcium 9.2 (8.7-10.3) mg/dL AST 146 H (14-35) U/L ALT 109 H (10-49) U/L Alkaline Phosphatase 116 (41-126) U/L Total Protein 5.8 L (6.2-8.2) d/dL Albumin 3.9 (3.8-4.9) d/dL Calcium panel 09/02/23 Range/Units 06:42 Calcium 9.2 (8.7-10.3) mg/dL Albumin 3.9 (3.8-4.9) d/dL Pituitary panel 09/02/23 Range/Units 06:42 Sodium 137 (135-145) mmol/L Potassium 4.0 (3.5-5.5) mmol/L Chloride 106 (96-109) mmol/L Carbon Dioxide 22.4 (21.6-31.8) mmol/L BUN 39.9 H (9.0-27.0) mg/dL Creatinine 1.2 (0.6-1.5) mg/dL Glucose 99 (70-110) mg/dL Calcium 9.2 (8.7-10.3) mg/dL Adrenal panel 09/02/23 Range/Units 06:42 Sodium 137 (135-145) mmol/L Potassium 4.0 (3.5-5.5) mmol/L Chloride 106 (96-109) mmol/L Carbon Dioxide 22.4 (21.6-31.8) mmol/L BUN 39.9 H (9.0-27.0) mg/dL Creatinine 1.2 (0.6-1.5) mg/dL Glucose 99 (70-110) mg/dL Calcium 9.2 (8.7-10.3) mg/dL Total Bilirubin 3.5 H (0.3-1.2) mg/dL AST 146 H (14-35) U/L ALT 109 H (10-49) U/L Alkaline Phosphatase 116 (41-126) U/L Total Protein 5.8 L (6.2-8.2) d/dL Albumin 3.9 (3.8-4.9) d/dL
[2023-09-03] MEDS: SODIUM CHLORIDE 0.9% 1,000 ML IV SCH ×2 (02:41→16:27)
[2023-09-03] MEDS: LEVOTHYROXINE 125 MCG TAB PO SCH (05:51)
[2023-09-03] MEDS: SYMBICORT 80-4.5 MCG INHALER INHALATION SCH ×2 (08:33→18:43)
[2023-09-03] MEDS: amLODIPine 10 MG TAB PO SCH (09:09)
[2023-09-03] MEDS: MEMANTINE 10 MG TAB PO SCH ×2 (09:09→21:18)
[2023-09-03] MEDS: LACTOBACILLUS ACIDOPHILUS/PECT 1 EACH CAPSULE PO SCH ×4 (09:09→21:17)
[2023-09-03] MEDS: PANTOPRAZOLE 40 MG TABLET PO SCH ×2 (09:09→16:27)
[2023-09-03] MEDS: CYANOCOBALAMIN 500 MCG TAB PO SCH (09:09)
[2023-09-03] MEDS: CITALOPRAM HYDROBROMIDE 10 MG TAB PO SCH (09:10)
[2023-09-03] MEDS: ENOXAPARIN 40 MG/0.4 ML SYRINGE SQ SCH (09:10)
[2023-09-03 11:10] LABS: HCT 34.4 % (39.6-50.0); HGB 11.5 d/dL (13.0-17.0); MCH 31.7 pg (27.0-32.0); MCHC 33.4 d/dL (32.0-37.0); MCV 94.8 FL (80.0-97.0); Mean Platelet Volume 10.3 FL (9.5-12.2); NRBC Per 100 WBC 0 X 10*3/uL (0.00-0.01); Platelet Count 147 X 10*3/uL (140-440); RBC 3.63 X 10*6/uL (4.40-5.60); RDW 13.7 % (11.5-14.5); WBC 6.58 X 10*3/uL (4.50-10.00)
[2023-09-03 11:25] LABS: ALT 172 U/L (10-49); AST 164 U/L (14-35); Albumin 3.6 d/dL (3.8-4.9); Albumin/Globulin Ratio 2.25 Ratio (1.60-3.17); Alkaline Phosphatase 158 U/L (41-126); BUN/Creat Ratio 20.67 Ratio (12.00-20.00); Blood Urea Nitrogen 18.6 mg/dL (9.0-27.0); Calcium 8.9 mg/dL (8.7-10.3); Carbon Dioxide 24.6 mmol/L (21.6-31.8); Chloride 106 mmol/L (96-109); Globulin 1.6 d/dL (1.6-3.3); Glucose 96 mg/dL (70-110); Potassium 3.9 mmol/L (3.5-5.5); Sodium 139 mmol/L (135-145); Total Bilirubin 2.2 mg/dL (0.3-1.2); Total Protein 5.2 d/dL (6.2-8.2)
[2023-09-03] MEDS ORDERED: LORazepam 2 MG/ML INJ ONE (12:11)
--- NOTE | 2023-09-03 13:00 | P.PN ---
Subjective Progress Note Date: 09/03/23 * 78-year-old gentleman with past medical history significant for heart block with gallbladder, hypertension, dementia, hypothyroid presented to the emergency department with complains of nausea, vomiting diarrhea. Patient states symptom onset was 2 days prior to arrival. Patient had multiple episodes of nausea and diarrhea. Patient said he was not able to keep anything down. Patient tried [id number] Imodium without any relief. Patient states she was recently diagnosed with celiac disease as well. He decided come to emergency department secondary to persistent symptoms * Workup initiated in ER included CBC which showed white cell count of 13.5 hemoglobin of 15.9 platelet count of 206. Serum chemistry showed sodium 138 potassium 4.4, BUN 46 creatinine 1.91. A mile is not 18 and lipase 92 * Patient tested negative for Covid, influenza and C. diff * He was recently in the hospital with similar presentation and was seen by general surgery. Had a HIDA scan done which was negative. Patient was noted to have hyperbilirubinemia which is chronically elevated. * While in ER ED team tried to transfer to the [facility] for further assessment however per chart review also was denied. And recommended MRCP which is ordered * Gen. surgery team consulted as well to evaluate for cholecystectomy * 09/02: Patient seen and evaluated bedside, patient denies of abdominal pain, denies fever, chest pain,. Nausea and vomiting has improved. Patient does have diarrhea continue with fluid resuscitation. WBC has improved from 13.5- 7.58. Hemoglobin noted from 15-12 drop is likely dilutional. Renal function creatinine improved from 1.9-1.2. Transient up in AST ALT noted. Bilirubin 3.5. We'll get MRCP scheduled. Based MRCP results we'll determine further interventions. Appreciate input from general surgery team as well. * 09/03/23: Patient seen and evaluated bedside, patient denies of abdominal pain K plan discussed with at bedside who is in DP OA as well. She wants to be notified since patient has dementia. Will get EKG patient does have sinus bradycardia at baseline general surgery planning cholecystectomy tomorrow. MRCP pending liver profile trending up discuss possible etiologies we'll check for hepatitis as well Objective - Vital Signs Vital signs: Vital Signs Temp 97.5 F L 09/03/23 11:57 Pulse 44 L 09/03/23 11:57 Resp 16 09/03/23 11:57 BP 124/66 09/03/23 11:57 Pulse Ox 98 09/03/23 11:57 FiO2 Intake & Output 09/02/23 09/03/23 09/03/23 18:59 06:59 18:59 Intake Total 420 Balance 420 Intake: Oral 420 Other: Voiding Method Toilet # Voids 1 1 - Exam PHYSICAL EXAMINATION: GENERAL: The patient is alert and oriented x3, not in any acute distress. Well developed, well nourished. HEENT: Pupils are round and equally reacting to light. EOMI. CARDIOVASCULAR: S1 and S2 present. No murmurs, rubs, or gallops. PULMONARY: Chest is clear to auscultation, no wheezing or crackles. ABDOMEN: Soft, nontender, nondistended, normoactive bowel sounds. MUSCULOSKELETAL: No joint swelling or deformity. EXTREMITIES: No cyanosis, clubbing, or pedal edema. NEUROLOGICAL: Gross neurological examination did not reveal any focal deficits. Impaired memory SKIN: No rashes. - Labs CBC & Chem 7: 09/03/23 06:10 09/03/23 06:10 Labs: Abnormal Lab Results - Last 24 Hours (Table) 09/03/23 09/03/23 Range/Units 06:10 06:10 RBC 3.63 L (4.40-5.60) X 10*6/uL Hgb 11.5 L (13.0-17.0) d/dL Hct 34.4 L (39.6-50.0) % BUN/Creatinine Ratio 20.67 H (12.00-20.00) Ratio Total Bilirubin 2.2 H (0.3-1.2) mg/dL AST 164 H (14-35) U/L ALT 172 H (10-49) U/L Alkaline Phosphatase 158 H (41-126) U/L Total Protein 5.2 L (6.2-8.2) d/dL Albumin 3.6 L (3.8-4.9) d/dL Assessment and Plan Assessment: Assessment and plan * Recurrent nausea/vomiting diarrhea with hyperbilirubinemia rule out he patobiliary etiology hydropic gallbladder * Diarrhea rule out infectious etiology * Transaminitis rule out hepatitis * Acute renal failure resolved * History of dementia * Hypothyroid * History of hypertension * History of bradycardia * In regards to nausea/vomiting diarrhea patient had CT abdomen and pelvis completed in ER which showed hydrophilic gallbladder, ultrasound abdomen showed dilated CBD no gallstones were noted or no biliary stones noted stones noted. CT abdomen did show extensive stool burden. Patient started on Lomotil, when necessary Zofran, IV Protonix * In regards to diarrhea continue patient on Lomotil, probiotics , stool C. diff negative ,stool cultures ordered, continue IV fluid resuscitation * In regards to acute renal failure continue patient on IV fluid. Follow up on renal profile * In regards to hypothyroid continue Synthyroid * In regards to history of hypertension continue amlodipine * Avoid hepatotoxic medications * MRCP pending, general surgery clinic cholecystectomy 09/04 * CODE STATUS is full code
--- NOTE | 2023-09-03 13:48 | MR ---
EXAMINATION TYPE: MR MRCP DATE OF EXAM: 09/03/2023 1:21 PM CLINICAL INDICATION:Male, 78 years old with history of Epigastric pain, elevated bilirubin; Epigastri c pain, N & V, diarrhea. COMPARISON: 09/01/2023. TECHNIQUE: Multi planar, T2-weighted imaging with and without fat saturation and chemical shift imag ing was performed of the abdomen. Then, heavily T2 weighted imaging (half-Fourier acquisition single- shot turbo spin-echo) was utilized in order to study the biliary system. Maximum intensity projectio n images were reconstructed from the original data of the biliary tree. 3D images were created on [employer] work station. No Gadolinium given. FINDINGS: Lower Thorax: No evidence for acute process. Respiratory motion limits evaluation. MRCP: * The intrahepatic ducts mildly dilated centrally. * The common bile duct at the level of the pancreatic head measures 14 mm in size. * The common hepatic duct measures 12 mm in size. * The pancreatic duct is normal. * The gallbladder is distended similar prior imaging measuring up to 12.8 x 5.7 cm. No evidence for cholelithiasis. No pericholecystic fluid definitely visualized. Abdomen: Limited evaluation secondary to motion. Liver: High T2 signal probable cysts measuring up to 2.4 x 3.3 cm. Pancreas: Unremarkable. Spleen: Unremarkable. Adrenal glands: Unremarkable. Kidneys: Unremarkable. Stomach and Bowel: Unremarkable as visualized. Peritoneum: No evidence of pneumoperitoneum or free fluid. Vasculature: No aortic aneurysm. Musculoskeletal: The osseous structures appear intact. Lymph Nodes: No gross evidence for lymphadenopathy. Abdominal wall: Fat-containing umbilical hernia. IMPRESSION: Motion limited exam. Hydropic gallbladder with extrahepatic biliary dilation. No obstructing calculus. Correlate for stric ture at the papilla., No masses definitively visualized. Consider ERCP for decompression. No evidence to suggest ductal stricture, choledocholithiasis.
--- NOTE | 2023-09-03 14:06 | P.PN ---
Subjective Progress Note Date: 09/03/23 CHIEF COMPLAINT: Hydropic gallbladder HISTORY OF PRESENT ILLNESS: Patient denies any abdominal pain. Denies any nausea or vomiting. Patient had MRCP today and results report motion limited exam. Hydropic gallbladder with extrahepatic biliary dilation. No obstructing calculus. Correlate for stricture at the papula. No masses. No evidence to suggest ductal stricture or choledocholithiasis. Afebrile. WBC 6.58 Hgb 11.5 total bilirubin 3.5 down to 2.2 AST up at 164 ALT up at 172 alk phos 158 PHYSICAL EXAM: VITAL SIGNS: Reviewed. GENERAL: Well-developed in no acute distress. ABDOMEN: Soft. Nondistended. Nontender. NEUROLOGIC: Awake and answering questions ASSESSMENT: 1. Hydropic gallbladder 2. Elevated LFTs and total bilirubin PLAN: -Patient scheduled for laparoscopic cholecystectomy for tomorrow -Okay for clear liquid diet for dinner -Nothing by mouth after midnight Physician Veterinary Assistant note has been reviewed by physician. Signing provider agrees with the documented findings, assessment, and plan of care. Objective - Vital Signs Vital signs: Vital Signs Temp 97.3 F L 09/03/23 07:30 Pulse 79 09/03/23 07:30 Resp 18 09/03/23 07:30 BP 138/79 09/03/23 07:30 Pulse Ox 91 L 09/03/23 07:30 FiO2 Intake & Output 09/02/23 09/03/23 09/03/23 18:59 06:59 18:59 Intake Total 420 Balance 420 Intake: Oral 420 Other: Voiding Method Toilet # Voids 1 1 - Labs CBC & Chem 7: 09/03/23 06:10 09/03/23 06:10 Labs: Abnormal Lab Results - Last 24 Hours (Table) 09/03/23 09/03/23 Range/Units 06:10 06:10 RBC 3.63 L (4.40-5.60) X 10*6/uL Hgb 11.5 L (13.0-17.0) d/dL Hct 34.4 L (39.6-50.0) % BUN/Creatinine Ratio 20.67 H (12.00-20.00) Ratio Total Bilirubin 2.2 H (0.3-1.2) mg/dL AST 164 H (14-35) U/L ALT 172 H (10-49) U/L Alkaline Phosphatase 158 H (41-126) U/L Total Protein 5.2 L (6.2-8.2) d/dL Albumin 3.6 L (3.8-4.9) d/dL
--- NOTE | 2023-09-03 19:37 | CT ---
EXAMINATION TYPE: CT brain wo con DATE OF EXAM: 09/03/2023 COMPARISON: 07/29/2023 INDICATION: AMS DLP: 1047.70 mGycm, Automated exposure control for dose reduction was used. CONTRAST: None CT of the brain is performed utilizing 3 mm thick sections through the posterior fossa and 3 mm thick sections through the remaining calvarium. Study is not performed within 24 hours of arrival to the hospital. No abnormal hyperdensity is present to suggest an acute intracranial hemorrhage. No mass lesion is evident. No acute infarcts are evident. Some mild chronic appearing periventricular white matter ischemic type changes are present Ventricles and sulci are appropriate for the patient age. Paranasal sinuses and mastoid air cells within the [id number] are clear. IMPRESSION: 1. Mild age-related atrophy with chronic appearing white matter ischemic type changes. 2. No acute intracranial process. Follow-up MRI can be performed as clinically indicated
[2023-09-04 03:55] LABS: Hepatitis A Antibody IgM Nonreactive; Hepatitis B Core IgM Nonreactive; Hepatitis B Surface Antigen Nonreactive; Hepatitis C IgG Antibody Nonreactive
[2023-09-04] MEDS: SODIUM CHLORIDE 0.9% 1,000 ML IV SCH ×2 (04:57→17:53)
[2023-09-04] MEDS: LEVOTHYROXINE 125 MCG TAB PO SCH (05:32)
[2023-09-04 07:05] LABS: Basophils % (A) 0 %; Eosinophils # (A) 0.2 k/uL (0-0.7); Eosinophils % (A) 2 %; HCT 38.2 % (39.0-53.0); Lymphocytes # (A) 3.1 k/uL (1.0-4.8); Lymphocytes % (A) 45 %; MCHC 33.3 g/dL (31.0-37.0); Mean Platelet Volume 7.8; Monocytes # (A) 0.7 k/uL (0-1.0); Monocytes % (A) 10 %; Neutrophils # (A) 2.7 k/uL (1.3-7.7); Neutrophils % (A) 39 %; Platelet Count 152 k/uL (150-450); RBC 3.98 m/uL (4.30-5.90); RDW 13.1 % (11.5-15.5); WBC 6.9 k/uL (3.8-10.6)
[2023-09-04 07:12] LABS: HGB 12.7 gm/dL (13.0-17.5)
[2023-09-04 07:27] LABS: ALT 152 U/L (4-49); AST 107 U/L (17-59); African American GFR (CKD) >90 (>60 ml/min/1.73 sqM); Albumin 3.4 g/dL (3.5-5.0); Albumin/Globulin Ratio 1.4; Alkaline Phosphatase 138 U/L (38-126); Anion Gap 7 mmol/L; Blood Urea Nitrogen 12 mg/dL (9-20); Calcium 9.2 mg/dL (8.4-10.2); Carbon Dioxide 28 mmol/L (22-30); Chloride 101 mmol/L (98-107); Globulin 2.5 g/dL; Glucose 94 mg/dL (74-99); Non-African American GFR(CKD) >90 (>60 ml/min/1.73 sqM); Potassium 3.7 mmol/L (3.5-5.1); Sodium 136 mmol/L (137-145); Total Bilirubin 2.2 mg/dL (0.2-1.3); Total Protein 5.9 g/dL (6.3-8.2)
[2023-09-04] MEDS: CITALOPRAM HYDROBROMIDE 10 MG TAB PO SCH (08:53)
[2023-09-04] MEDS: LACTOBACILLUS ACIDOPHILUS/PECT 1 EACH CAPSULE PO SCH ×4 (08:53→22:03)
[2023-09-04] MEDS: CYANOCOBALAMIN 500 MCG TAB PO SCH (08:53)
[2023-09-04] MEDS: MEMANTINE 10 MG TAB PO SCH ×2 (08:53→22:03)
[2023-09-04] MEDS: amLODIPine 10 MG TAB PO SCH (08:54)
[2023-09-04] MEDS: ENOXAPARIN 40 MG/0.4 ML SYRINGE SQ SCH (08:54)
[2023-09-04] MEDS: PANTOPRAZOLE 40 MG TABLET PO SCH ×2 (08:54→17:52)
[2023-09-04] MEDS: SYMBICORT 80-4.5 MCG INHALER INHALATION SCH ×2 (09:05→19:28)
[2023-09-04] MEDS ORDERED: HEPARIN SODIUM,PORCINE/PF 5,000 UNIT/0.5 ML SYRINGE SQ ONE (10:58)
[2023-09-04] MEDS ORDERED: LACTATED RINGERS 1,000 ML IV ONE (11:03)
[2023-09-04] MEDS ORDERED: DEXAMETHASONE SOD PHOSPHATE 4 MG/ML 1 ML VIAL IVP ONE (11:05)
[2023-09-04] MEDS ORDERED: BUPIVACAINE (PF) 0.25% 30 ML VIAL SQ ONE ×2 (11:49)
--- NOTE | 2023-09-04 12:19 | P.OP ---
Date of Procedure: 09/04/23 Preoperative Diagnosis: Hydropic gallbladder Postoperative Diagnosis: Hydropic gallbladder Procedure(s) Performed: Laparoscopic cholecystectomy Anesthesia: ELVIS Surgeon: Sancho Lewis Estimated Blood Loss (ml): 5 Pathology: other (Gallbladder) Condition: stable Disposition: PACU Operative Findings: Large distended hydropic gallbladder measuring approximately 15 cm in length Description of Procedure: The patient was placed on the operating table. The patient received a general endotracheal tube anesthesia. The patients abdomen was prepped and draped in the usual sterile fashion. Through an infraumbilical stab incision, the fascia of the anterior abdominal wall was grasped with a pair of Kochers and then the Veress needle was placed in the peritoneal cavity. Position of the Veress needle was confirmed with positive drop test. The abdomen was then insufflated. After adequate insufflation, the 10 mm trocar was placed in the peritoneal cavity. Following this the laparoscope was placed in the peritoneal cavity. The patient was placed in the head-up, right side up position and then a 5 mm trocar was placed in the right lateral and right subcostal position under direct visualization. A 8 mm trocar was placed in the epigastric position. The gallbladder was grasped in the fundus and infundibulum. Traction on the gallbladder was placed in the lateral and the cephalad positions. The triangle of Calot was visualized.. The cystic duct was bluntly dissected until the union of the cystic duct and common bile duct was seen. A critical view of safety was achieved. The cystic duct was then divided and sealed with the Harmonic scissors. A PDS Endoloop was then placed throughout the cystic duct stump. The cystic artery divided and sealed with the Harmonic scissors. The gallbladder was then removed from the liver bed using Harmonic scissors. The gallbladder was then extracted through the epigastric port site. Operative field was checked for any bleeding spots and Harmonic scissors was used to coagulate the liver bed. The abdomen was irrigated. The trocars were removed. The skin was closed using interrupted 3-0 Vicryl suture. Dermabond dressing were applied. The patient tolerated the procedure well.
[2023-09-04] MEDS ORDERED: HYDROcodone/APAP 7.5-325MG 1 EACH TAB PO PRN (12:21)
[2023-09-04] MEDS ORDERED: ONDANSETRON 4 MG/2 ML VIAL IVP PRN (12:21)
[2023-09-04] MEDS ORDERED: HYDROmorphone 1 MG/ML 1 ML SYRINGE IVP PRN (12:21)
--- NOTE | 2023-09-04 13:30 | P.PN ---
Subjective Progress Note Date: 09/04/23 78-year-old gentleman with past medical history significant for heart block with gallbladder, hypertension, dementia, hypothyroid presented to the emergency department with complains of nausea, vomiting diarrhea. Patient states symptom onset was 2 days prior to arrival. Patient had multiple episodes of nausea and diarrhea. Patient said he was not able to keep anything down. Patient tried [id number] Imodium without any relief. Patient states she was recently diagnosed with celiac disease as well. He decided come to emergency department secondary to persistent symptoms * Workup initiated in ER included CBC which showed white cell count of 13.5 hemoglobin of 15.9 platelet count of 206. Serum chemistry showed sodium 138 potassium 4.4, BUN 46 creatinine 1.91. A mile is not 18 and lipase 92 * Patient tested negative for Covid, influenza and C. diff * He was recently in the hospital with similar presentation and was seen by general surgery. Had a HIDA scan done which was negative. Patient was noted to have hyperbilirubinemia which is chronically elevated. * While in ER ED team tried to transfer to the [facility] for further assessment however per chart review also was denied. And recommended MRCP which is ordered * Gen. surgery team consulted as well to evaluate for cholecystectomy * 09/02: Patient seen and evaluated bedside, patient denies of abdominal pain, denies fever, chest pain,. Nausea and vomiting has improved. Patient does have diarrhea continue with fluid resuscitation. WBC has improved from 13.5- 7.58. Hemoglobin noted from 15-12 drop is likely dilutional. Renal function creatinine improved from 1.9-1.2. Transient up in AST ALT noted. Bilirubin 3.5. We'll get MRCP scheduled. Based MRCP results we'll determine further interventions. Appreciate input from general surgery team as well. * 09/03/23: Patient seen and evaluated bedside, patient denies of abdominal pain K plan discussed with at bedside who is in DP OA as well. She wants to be notified since patient has dementia. Will get EKG patient does have sinus bradycardia at baseline general surgery planning cholecystectomy tomorrow. MRCP pending liver profile trending up discuss possible etiologies we'll check for hepatitis as well 09/04. Patient seen and examined. Patient was seen after lap cholecystectomy. Currently lethargic. Vital signs stable REVIEW OF SYSTEMS: CONSTITUTIONAL: No fever, no malaise,. CARDIOVASCULAR: No chest pain, no palpitations, no syncope. PULMONARY: No shortness of breath, no cough, GASTROINTESTINAL: Complaining of abdominal pain, no nausea vomiting NEUROLOGICAL: No headaches, no weakness, PHYSICAL EXAMINATION: GENERAL: The patient is alert , not in any acute distress. Well developed, well nourished. HEENT: Pupils are round and equally reacting to light. EOMI. No scleral icterus. No conjunctival pallor. Normocephalic, atraumatic. No pharyngeal erythema. No thyromegaly. CARDIOVASCULAR: S1 and S2 present. No murmurs, rubs, or gallops. PULMONARY: Chest is clear to auscultation, no wheezing or crackles. ABDOMEN: Soft, nontender, laparoscopic surgical incision seen MUSCULOSKELETAL: No joint swelling or deformity. EXTREMITIES: No cyanosis, clubbing, or pedal edema. NEUROLOGICAL: Gross neurological examination did not reveal any focal deficits. SKIN: No rashes. Assessment and plan Recurrent nausea/vomiting diarrhea with hyperbilirubinemia rule out hepatobiliary etiology hydropic gallbladder * Diarrhea rule out infectious etiology * Transaminitis rule out hepatitis * Acute renal failure resolved * History of dementia * Hypothyroid * History of hypertension * History of bradycardia * In regards to nausea/vomiting diarrhea patient had CT abdomen and pelvis completed in ER which showed hydrophilic gallbladder, ultrasound abdomen showed dilated CBD no gallstones were noted or no biliary stones noted stones noted. CT abdomen did show extensive stool burden. Status post laparoscopic cholecystectomy * In regards to diarrhea continue patient on Lomotil, probiotics , stool C. diff negative ,stool cultures ordered, continue IV fluid resuscitation * In regards to acute renal failure continue patient on IV fluid. Follow up on renal profile * In regards to hypothyroid continue Synthyroid * In regards to history of hypertension continue amlodipine * Avoid hepatotoxic medications * Status post cholecystectomy 09/04 * Gen. surgery following Labs and medication were reviewed.. Continue same treatment. Continue with symptomatic treatment. Resume home medication. Monitor labs and vitals. DVT and GI prophylaxis. Further recommendations as per clinical course of the patient Dictation was produced using [employer] dictation software. please excuse any grammatical, word or spelling errors. Objective - Vital Signs Vital signs: Vital Signs Temp 98.4 F 09/04/23 12:12 Pulse 69 09/04/23 12:42 Resp 16 09/04/23 12:42 BP 170/90 09/04/23 12:42 Pulse Ox 99 09/04/23 12:42 FiO2 Intake & Output 09/03/23 09/04/23 09/04/23 18:59 06:59 18:59 Intake Total 900 Output Total 400 10 Balance -400 890 Weight 78.925 kg Intake: IV 900 Output: Urine 400 Estimated Blood Loss 10 Other: Voiding Method Toilet # Voids 4 - Labs CBC & Chem 7: 09/04/23 06:36 09/04/23 06:36 Labs: Abnormal Lab Results - Last 24 Hours (Table) 09/04/23 09/04/23 Range/Units 06:36 06:36 RBC 3.98 L (4.30-5.90) m/uL Hgb 12.7 L D (13.0-17.5) gm/dL Hct 38.2 L (39.0-53.0) % Sodium 136 L (137-145) mmol/L Total Bilirubin 2.2 H (0.2-1.3) mg/dL AST 107 H (17-59) U/L ALT 152 H (4-49) U/L Alkaline Phosphatase 138 H (38-126) U/L Total Protein 5.9 L (6.3-8.2) g/dL Albumin 3.4 L (3.5-5.0) g/dL
[2023-09-04 16:35] LABS: INR 0.94 sec (0.93-1.11); Prothrombin Time 10.7 sec (9.9-11.9)
[2023-09-05] MEDS: SODIUM CHLORIDE 0.9% 1,000 ML IV SCH (05:50)
[2023-09-05] MEDS: LEVOTHYROXINE 125 MCG TAB PO SCH (05:50)
[2023-09-05 08:01] VITALS: PULSE 53
[2023-09-05] MEDS: SYMBICORT 80-4.5 MCG INHALER INHALATION SCH ×2 (08:26→19:35)
[2023-09-05] MEDS ORDERED: ENOXAPARIN 40 MG/0.4 ML SYRINGE SQ SCH (09:00)
[2023-09-05] MEDS: CYANOCOBALAMIN 500 MCG TAB PO SCH (10:34)
[2023-09-05] MEDS: CITALOPRAM HYDROBROMIDE 10 MG TAB PO SCH (10:34)
[2023-09-05] MEDS: amLODIPine 10 MG TAB PO SCH (10:35)
[2023-09-05] MEDS: LACTOBACILLUS ACIDOPHILUS/PECT 1 EACH CAPSULE PO SCH ×2 (10:35→13:29)
[2023-09-05] MEDS: PANTOPRAZOLE 40 MG TABLET PO SCH (10:35)
[2023-09-05] MEDS: MEMANTINE 10 MG TAB PO SCH (10:37)
[2023-09-05 11:16] LABS: HCT 36.8 % (39.6-50.0); HGB 12.4 d/dL (13.0-17.0); MCH 31.5 pg (27.0-32.0); MCHC 33.7 d/dL (32.0-37.0); MCV 93.4 FL (80.0-97.0); Mean Platelet Volume 9.9 FL (9.5-12.2); NRBC Per 100 WBC 0 X 10*3/uL (0.00-0.01); Platelet Count 173 X 10*3/uL (140-440); RBC 3.94 X 10*6/uL (4.40-5.60); RDW 13.4 % (11.5-14.5); WBC 10.76 X 10*3/uL (4.50-10.00)
--- NOTE | 2023-09-05 12:10 | P.PN ---
Progress Note - Text Progress Note Date: 09/05/23 Patient states he feels better today. He has no significant complaints of abdominal pain. On exam vital signs appear stable. Abdomen is soft. Status post laparoscopically cholecystectomy for hydropic all bladder with cholecystitis. Patient will need GI consultation for ERCP for possible amp ullary stricture. The patient will be continued to be observed.
[2023-09-05 12:16] LABS: ALT 114 U/L (10-49); AST 72 U/L (14-35); Albumin 3.8 d/dL (3.8-4.9); Alkaline Phosphatase 146 U/L (41-126); Blood Urea Nitrogen 10.4 mg/dL (9.0-27.0); Calcium 9.6 mg/dL (8.7-10.3); Carbon Dioxide 31.4 mmol/L (21.6-31.8); Chloride 100 mmol/L (96-109); Globulin 1.9 d/dL (1.6-3.3); Glucose 105 mg/dL (70-110); Sodium 139 mmol/L (135-145); Total Bilirubin 1.5 mg/dL (0.3-1.2); Total Protein 5.7 d/dL (6.2-8.2)
[2023-09-05 14:05] VITALS: BP 107/71; RESP 18; TEMP 98.2
--- NOTE | 2023-09-05 14:14 | P.DS ---
Providers Date of admission: 09/01/23 12:42 Expected date of discharge: 09/05/23 Attending physician: Cindi Murray MD Consults: 09/01/23 14:19 Consult Physician Routine Consulting Provider: Sancho Lewis Consult Reason/Comments: Abdominal pain, dilated gallbladder and evaluated for cholecystectomy Do you want consulting provider notified?: Yes Primary care physician: [facility] Course: * 78-year-old gentleman with past medical history significant for heart block with gallbladder, hypertension, dementia, hypothyroid presented to the emergency department with complains of nausea, vomiting diarrhea. Patient states symptom onset was 2 days prior to arrival. Patient had multiple episodes of nausea and diarrhea. Patient said he was not able to keep anything down. Patient tried iiip-zax-hsrupgs Imodium without any relief. Patient states she was recently diagnosed with celiac disease as well. He decided come to emergency department secondary to persistent symptoms * Workup initiated in ER included CBC which showed white cell count of 13.5 hemoglobin of 15.9 platelet count of 206. Serum chemistry showed sodium 138 potassium 4.4, BUN 46 creatinine 1.91. A mile is not 18 and lipase 92 * Patient tested negative for Covid, influenza and C. diff * He was recently in the hospital with similar presentation and was seen by general surgery. Had a HIDA scan done which was negative. Patient was noted to have hyperbilirubinemia which is chronically elevated. * While in ER ED team tried to transfer to the [facility] for further assessment however per chart review also was denied. And recommended MRCP which is ordered * Gen. surgery team consulted as well to evaluate for cholecystectomy * 09/02: Patient seen and evaluated bedside, patient denies of abdominal pain, denies fever, chest pain,. Nausea and vomiting has improved. Patient does have diarrhea continue with fluid resuscitation. WBC has improved from 13.5- 7.58. Hemoglobin noted from 15-12 drop is likely dilutional. Renal function creatinine improved from 1.9-1.2. Transient up in AST ALT noted. Bilirubin 3.5. We'll get MRCP scheduled. Based MRCP results we'll determine further interventions. Appreciate input from general surgery team as well. * 09/03/23: Patient seen and evaluated bedside, patient denies of abdominal pain K plan discussed with at bedside who is in DP OA as well. She wants to be notified since patient has dementia. Will get EKG patient does have sinus bradycardia at baseline general surgery planning cholecystectomy tomorrow. MRCP pending liver profile trending up discuss possible etiologies we'll check for hepatitis as well * 09/04. Patient seen and examined. Patient was seen after lap cholecyste ctomy. Currently lethargic. Vital signs stable * 09/05: Patient seen and evaluated bedside. Care plan discussed with . Patient to be discharged to home. Outpatient follow-up with gastroenterology recommended. Patient will need outpatient ERCP. Patient will need outpatient liver profile checked notified to follow-up with PCP to get liver profile checked in 5 days. Hemodynamically stable blood work improving renal function stable PHYSICAL EXAMINATION: GENERAL: The patient is alert , not in any acute distress. Well developed, well nourished. HEENT: Pupils are round and equally reacting to light. EOMI. y. CARDIOVASCULAR: S1 and S2 present. No murmurs, rubs, or gallops. PULMONARY: Chest is clear to auscultation, no wheezing or crackles. ABDOMEN: Soft, nontender, laparoscopic surgical incision seen MUSCULOSKELETAL: No joint swelling or deformity. EXTREMITIES: No cyanosis, clubbing, or pedal edema. NEUROLOGICAL: Gross neurological examination did not reveal any focal deficits. SKIN: No rashes. Assessment: Recurrent nausea/vomiting diarrhea with hyperbilirubinemia rule out hepatobiliary etiology hydropic gallbladder it is post cholecystectomy * Diarrhea rule out infectious etiology * Transaminitis rule out hepatitis * Acute renal failure resolved * History of dementia * Hypothyroid * History of hypertension * History of bradycardia * In regards to nausea/vomiting diarrhea patient had CT abdomen and pelvis completed in ER which showed hydrophilic gallbladder, ultrasound abdomen showed dilated CBD no gallstones were noted or no biliary stones noted stones noted. CT abdomen did show extensive stool burden. Status post laparoscopic cholecystectomy * In regards to diarrhea continue patient on Lomotil, probiotics , stool C. diff negative , discharge home outpatient follow-up with PCP * In regards to acute renal failure continue patient on IV fluid. Renal function improved * In regards to hypothyroid continue Synthyroid * In regards to history of hypertension continue amlodipine * Avoid hepatotoxic medications * Outpatient follow-up with gastroenterology. Outpatient liver profile checked Plan - Discharge Summary Discharge Rx Participant: Yes New Discharge Prescriptions: New Diphenox-Atrop 2.5-0.025 mg [Lomotil] 1 each PO Q6HR PRN 7 Days #28 tab PRN Reason: Diarrhea HYDROcodone/APAP 5-325MG [[place] 5-325] 1 each PO Q6HR PRN 2 Days #8 tab PRN Reason: Moderate Pain (Scale 4 To 6) Ondansetron Odt [Zofran Odt] 4 mg PO Q8HR PRN 7 Days #21 tab PRN Reason: Nausea Continue Citalopram Hydrobromide [CeleXA] 30 mg PO DAILY amLODIPine [Norvasc] 10 mg PO DAILY #30 tab Memantine [Namenda] 10 mg PO BID Pantoprazole [Protonix] 40 mg PO BID Levothyroxine Sodium [Synthroid] 125 mcg PO DAILY Cyanocobalamin (Vitamin B-12) [Vitamin B-12] 2,500 mcg PO DAILY Fluticasone Propion/Salmeterol [Fluticasone-Salmeterol 250-50] 1 puff INHALATION DIRECTED Discharge Medication List Citalopram Hydrobromide [CeleXA] 30 mg PO DAILY 05/03/19 [History] Memantine [Namenda] 10 mg PO BID 09/11/22 [History] Cyanocobalamin (Vitamin B-12) [Vitamin B-12] 2,500 mcg PO DAILY 07/28/23 [History] Levothyroxine Sodium [Synthroid] 125 mcg PO DAILY 07/28/23 [History] Pantoprazole [Protonix] 40 mg PO BID 07/28/23 [History] amLODIPine [Norvasc] 10 mg PO DAILY #30 tab 07/30/23 [Rx] Fluticasone Propion/Salmeterol [Fluticasone-Salmeterol 250-50] 1 puff INHALATION DIRECTED 09/01/23 [History] Diphenox-Atrop 2.5-0.025 mg [Lomotil] 1 each PO Q6HR PRN 7 Days #28 tab 09/05/23 [Rx] HYDROcodone/APAP 5-325MG [[place] 5-325] 1 each PO Q6HR PRN 2 Days #8 tab 09/05/23 [Rx] Ondansetron Odt [Zofran Odt] 4 mg PO Q8HR PRN 7 Days #21 tab 09/05/23 [Rx] Follow up Appointment(s)/Referral(s): Katherine Garcia MD [Primary Care Provider] - 1-2 days Darlene Velasquez MD [STAFF PHYSICIAN] - 10 Days (Will need follow-up for ERCP evaluation outpatient) Discharge/Stand Alone Forms: Who Do I Call?, Assisted Living Facilities, Community Resources, Help In The Home Discharge Disposition: HOME SELF-CARE
== END 2023-09-05 19:56 | disposition home or self-care (01) | DRG 418 ==
LOC: EC 06:48 → 5NMEDONC 12:42 → OBSVTOIN 12:42 → 5NMEDONC 15:22
PROVIDERS: ADMIT Internal Medicine; ATTEND Internal Medicine
PROC: 0FT44ZZ Resection of Gallbladder, Percutaneous Endoscopic Approach (ICD-10-PCS; principal; 2023-09-04 07:30)
DX: K81.9 Cholecystitis, unspecified (principal); F02.83 Dementia in other diseases classified elsewhere, unspecified severity, with mood disturbance; K82.1 Hydrops of gallbladder; N17.9 Acute kidney failure, unspecified; K83.8 Other specified diseases of biliary tract; E03.9 Hypothyroidism, unspecified; Z79.890 Hormone replacement therapy; Z20.822 Contact with and (suspected) exposure to COVID-19; E86.0 Dehydration; R19.7 Diarrhea, unspecified; F32.A Depression, unspecified; G30.9 Alzheimer's disease, unspecified; I10 Essential (primary) hypertension; K21.9 Gastro-esophageal reflux disease without esophagitis; K90.0 Celiac disease; Z79.899 Other long term (current) drug therapy; Z85.819 Personal history of malignant neoplasm of unspecified site of lip, oral cavity, and pharynx; Z87.891 Personal history of nicotine dependence; Z92.21 Personal history of antineoplastic chemotherapy; Z92.3 Personal history of irradiation
CPT/HCPCS: 36415; 70450; 74176; 74181; 76705; 80053; 80074; 82150; 82248; 83605; 83690; 83735; 85025; 85027; 85610; 87324; 87636; 88304; 93005; 94640; 96361; 96374; 96375; 99285

== ENCOUNTER → 2023-10-03 | Outpatient (CLI) | payer MEDICARE ==
--- NOTE | 2023-10-03 20:19 | CT ---
EXAMINATION TYPE: CT chest w con DATE OF EXAM: 10/03/2023 COMPARISON: HISTORY: Solitary pulmonary nodule. No complaints. CT DLP: 272.3 mGycm, Automated exposure control for dose reduction was used. CONTRAST: Performed injected with 100ml mL of Isovue 300. TECHNIQUE: Axial images were obtained at 5 mm thick sections. Reconstructed images are reviewed on [employer] computer in the coronal plane. FINDINGS: Thyroid appears atrophic There is a 0.5 cm nodule lateral right upper lung field. Series 4 image 18. A 0.5 cm density is in th e periphery of the anterior lateral right midlung. Series 4 image 27. No enlarged mediastinal or hilar adenopathy is evident. The ascending aorta diameter at the level o f the main pulmonary artery is 3.9 cm. The main pulmonary artery diameter at the bifurcation is 3.[address] sections are obtained through the upper abdomen. There is a 2.9 cm cyst within the right l obe liver. Additional smaller cyst measuring 0.9 cm is evident within the liver IMPRESSION: 1. Couple of small nodules within the right lung which are nonspecific. Follow-up in 6 months is riya mmended. The should be confirmed as stable course of 2 years.
== END | disposition home or self-care (01) ==
LOC: RADCTMAIN 09:29
PROVIDERS: ATTEND Family Medicine
DX: R91.8 Other nonspecific abnormal finding of lung field (principal)
CPT/HCPCS: 71260; Q9967

== ENCOUNTER → 2023-10-21 | Outpatient (CLI) | payer MEDICARE ==
[2023-10-21 16:45] LABS: Basophils # (A) 0.04 X 10*3/uL (0.00-0.10); Basophils % (A) 0.6 %; Eosinophils # (A) 0.18 X 10*3/uL (0.04-0.35); Eosinophils % (A) 2.5 %; HCT 37.4 % (39.6-50.0); Lymphocytes # (A) 3.48 X 10*3/uL (0.90-5.00); Lymphocytes % (A) 48.6 %; MCHC 32.1 g/dL (32.0-37.0); MCV 96.6 FL (80.0-97.0); Mean Platelet Volume 10.2 FL (9.5-12.2); Monocytes # (A) 0.64 X 10*3/uL (0.20-1.00); Monocytes % (A) 8.9 %; NRBC Per 100 WBC 0 X 10*3/uL (0.00-0.01); Neutrophils % (A) 39.1 %; Platelet Count 181 X 10*3/uL (140-440); RBC 3.87 X 10*6/uL (4.40-5.60); RDW 13.4 % (11.5-14.5); WBC 7.16 X 10*3/uL (4.50-10.00)
== END | disposition home or self-care (01) ==
LOC: LABPAT 12:09
PROVIDERS: ATTEND Surgery
DX: Z01.812 Encounter for preprocedural laboratory examination (principal)
CPT/HCPCS: 36415; 85025; 86850; 86900; 86901

== ENCOUNTER 2023-10-22 07:06 | Day surgery (SDC) | payer MEDICARE ==
[~2023-10-22 07:06] MED LIST changes: -LIDOCAINE 1% (10MG/ML) FOR IV START INTRADERMA PRN; -LIDOCAINE 2% INJ 20 MG/ML (2 ML VIAL) ONE; -MIDAZOLAM 2 MG/2 ML VIAL IV PRN; -PROPOFOL 10 MG/ML 20 ML VIAL IV ONE
[2023-10-22] MEDS ORDERED: HEPARIN SODIUM,PORCINE/PF 5,000 UNIT/0.5 ML SYRINGE SQ ONE (07:49)
[2023-10-22] MEDS ORDERED: ACETAMINOPHEN TAB 500 MG TAB ONE (07:49)
[2023-10-22 08:01] LABS: Glucose,Whole Blood 108 mg/dL (70-110)
[2023-10-22] MEDS ORDERED: fentaNYL (PF) 50 MCG/ML 2 ML AMP IVP ONE (08:24)
[2023-10-22 08:30] VITALS: RESP 16
[2023-10-22] MEDS ORDERED: NEOSTIGMINE 1 MG/ML 10 ML VIAL ONE (08:40)
[2023-10-22] MEDS ORDERED: KETOROLAC 15 MG/ML 1 ML VIAL ONE (08:40)
[2023-10-22] MEDS ORDERED: SODIUM CHLORIDE 0.9% (PF) 10 ML VIAL ONE (08:40)
[2023-10-22] MEDS ORDERED: fentaNYL (PF) 50 MCG/ML 2 ML AMP ONE (08:40)
[2023-10-22] MEDS ORDERED: ePHEDrine 50 MG/ML 1 ML VIAL ONE (08:40)
[2023-10-22] MEDS ORDERED: SUCCINYLCHOLINE CHLORIDE 200 MG/10 ML VIAL IV ONE (08:40)
[2023-10-22] MEDS ORDERED: LIDOCAINE 1% INJ 10MG/ML (20 ML MDV) ONE (08:40)
[2023-10-22] MEDS ORDERED: GLYCOPYRROLATE 0.2 MG/ML 2 ML VIAL ONE (08:40)
[2023-10-22] MEDS ORDERED: ROCURONIUM 10 MG/ML (5 ML VIAL) IV ONE (08:40)
[2023-10-22] MEDS ORDERED: ROPIVACAINE 5 MG/ML 30 ML VIAL ONE (08:40)
[2023-10-22] MEDS ORDERED: PROPOFOL 10 MG/ML 20 ML VIAL IV ONE (08:40)
[2023-10-22] MEDS ORDERED: BUPIVACAINE (PF) 0.25% 30 ML VIAL SQ ONE ×2 (08:56→08:57)
--- NOTE | 2023-10-22 09:48 | P.OP ---
Date of Procedure: 10/22/23 Preoperative Diagnosis: Incarcerated umbilical hernia Postoperative Diagnosis: Incarcerated umbilical hernia Procedure(s) Performed: Laparoscopic robotic-assisted repair of incarcerated umbilical hernia Partial omentectomy Transversus abdominis block Anesthesia: ELVIS Surgeon: Sancho Lewis Estimated Blood Loss (ml): 5 Pathology: other (Omentum/hernia sac) Condition: stable Disposition: PACU Description of Procedure: The patient was placed on the operating table in the supine position. He received general anesthesia. His abdomen was prepped and draped usual fashion. Using a 5 mm optical trocar under direct visualization the peritoneal cavity was entered in the left upper quadrant. The abdomen was then insufflated. The laparoscope was placed back into the perineal cavity. Next a 8 mm robotic trocar was placed in the left lower quadrant and a 12 mm robotic trocar was placed in the left lateral position. The original 5 mm trocar was exchanged for a 8 mm robotic trocar. A four-quadrant transverse adjustable performed 1% local Xylocaine. The patient's placed in the left side up position. And the patient was docked the robot. The umbilical hernia was visualized. Using hook cautery the peritoneum over the umbilical hernia was excised. Incarcerated omentum in hernia sac was dissected free sent to pathology. The fascial opening was repaired using 0V LOC suture. Next a piece of 11 cm round ventral light ST mesh was placed into the. Cavity a nd secured with 2 OV lock suture. The patient was undocked the robot. The needles were retrieved. The fascia of the 12 mm trocar site was closed with 0 Ethibond suture. Skin was closed interrupted 3-0 Monocryl suture. Dermabond dressings was applied. Patient top procedure well and was sent to recovery room stable condition.
[2023-10-22 10:02] VITALS: TEMP 97.6
--- NOTE | 2023-10-22 11:13 | P.ANPRN ---
Procedure Note - Anesthesia - Nerve Block Performed Bilateral Rectus Abdominis Single Time Out Performed: Yes (0823) Date of Procedure: 10/22/23 Procedure Start Time: : Procedure Stop Time: Location of Patient: PreOp Indication: Acute Post-Operative Pain, Requested by Surgeon Specifically requested for management of pain by DrNy: Sancho Lewis Sedation Type: Sedate with meaningful contact maintained Preparation: Sterile Prep Position: Supine Catheter: None Needle Types: Pajunk Needle Gauge: 21 Ultrasound used to visualize needle placement: Yes Ultrasound used to observe medication spread: Yes Injectate: 0.5% Ropivacaine (see comment for volume) (15cc +10cc nacl pf each side) Blood Aspirated: No Pain Paresthesia on Injection Noted: No Resistance on Injection: Normal Image Stored and Saved: Yes Events: Uneventful and Well Tolerated
[2023-10-22 11:33] VITALS: BP 148/83; PULSE 60
== END 2023-10-22 12:19 | disposition home or self-care (01) ==
LOC: OR 07:06
PROVIDERS: ATTEND Surgery
DX: K42.0 Umbilical hernia with obstruction, without gangrene (principal); I10 Essential (primary) hypertension; E07.9 Disorder of thyroid, unspecified; F03.90 Unspecified dementia, unspecified severity, without behavioral disturbance, psychotic disturbance, mood disturbance, and anxiety; F32.A Depression, unspecified; K21.9 Gastro-esophageal reflux disease without esophagitis; G89.18 Other acute postprocedural pain; J44.9 Chronic obstructive pulmonary disease, unspecified; A08.19 Acute gastroenteropathy due to other small round viruses; K90.0 Celiac disease; Z79.51 Long term (current) use of inhaled steroids; Z90.49 Acquired absence of other specified parts of digestive tract; Z79.890 Hormone replacement therapy; Z79.899 Other long term (current) drug therapy; Z91.048 Other nonmedicinal substance allergy status; Z85.9 Personal history of malignant neoplasm, unspecified
CPT/HCPCS: 49592; S2900; 64488; 88305

== ENCOUNTER → 2023-11-29 | Outpatient (CLI) | payer MEDICARE ==
--- NOTE | 2023-11-29 13:33 | US ---
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 Indirect Doppler criteria was utilized. FINDINGS: EXAM MEASUREMENTS: RIGHT: Peak Systolic Velocity (PSV) cm/sec ----- Right CCA: 45 ----- Right ICA: 132 ----- Right ECA: 114 ICA/CCA ratio: 2.9 RIGHT: End Diastole cm/sec ----- Right CCA: 9 ----- Right ICA: 27 ----- Right ECA: 10 LEFT: Peak Systolic Velocity (PSV) cm/sec ----- Left CCA: 47 ----- Left ICA: 66 ----- Left ECA: 63 ICA/CCA ratio: 1.4 LEFT: End Diastole cm/sec ----- Left CCA: 11 ----- Left ICA: 21 ----- Left ECA: 7.5 VERTEBRALS (direction of flow): Right Vertebral: Antegrade Left Vertebral: Antegrade Rhythm: Arrhythmia PLANT ENGINEERING MANAGER NOTES: Intimal thickening with plaque along the bilateral CCAs and extending into the bif urcation, increased distal right ICA velocity Atheromatous plaquing. This appears somewhat severe the mid right common carotid artery available no significant velocity change is evident. Intimal thickening is present. There is some narrowing of t he right internal carotid artery demonstrated by velocity increase. IMPRESSION: 1. Mild narrowing through the right internal carotid artery estimated between 50 and 69%. 2. A more severe area of stenosis appears to be within the left common carotid artery, however, no si gnificant velocity change or turbulent flow is identified. Criteria for Assigning % of Stenosis / Diameter reduction (Estimation based on the indirect measurements of the internal carotid artery velocities (ICA PSV). 1. Normal (no stenosis)=ICA PSV < 125 cm/s: ratio < 2.0: ICA EDV<40 cm/s. 2. Less than 50% stenosis=ICA PSV < 125 cm/s: ratio < 2.0: ICA EDV<40 cm/s. 3. 50 to 69% stenosis=ICA PSV of 125 to 230 cm/s: ration 2.0 ? 4.0: ICA EDV 40-100 cm/s. 4. Greater than 70% stenosis to near occlusion= ICA PSV > 230 cm/s: ratio > 4.0: ICA EDV > 100 cm/s. 5. Near occlusion= ICA PSV velocities may be low or undetectable: variable ratio and ICA EDV. 6. Total occlusion=unable to detect flow.
== END | disposition home or self-care (01) ==
LOC: RADUSWWP 11:11
PROVIDERS: ATTEND Family Medicine
DX: I65.23 Occlusion and stenosis of bilateral carotid arteries (principal); R41.3 Other amnesia
CPT/HCPCS: 93880

== ENCOUNTER → 2023-11-29 | Outpatient (CLI) | payer MEDICARE ==
[2023-11-29 16:23] LABS: Basophils # (A) 0.03 X 10*3/uL (0.00-0.10); Basophils % (A) 0.3 %; Eosinophils # (A) 0.35 X 10*3/uL (0.04-0.35); Eosinophils % (A) 4.1 %; HCT 39.2 % (39.6-50.0); HGB 12.9 g/dL (13.0-17.0); Lymphocytes # (A) 3.61 X 10*3/uL (0.90-5.00); Lymphocytes % (A) 42.1 %; MCH 30.8 pg (27.0-32.0); MCHC 32.9 g/dL (32.0-37.0); MCV 93.6 FL (80.0-97.0); Mean Platelet Volume 10.2 FL (9.5-12.2); Monocytes # (A) 0.78 X 10*3/uL (0.20-1.00); Monocytes % (A) 9.1 %; NRBC Per 100 WBC 0 X 10*3/uL (0.00-0.01); Neutrophils # (A) 3.79 X 10*3/uL (1.80-7.70); Neutrophils % (A) 44.2 %; Platelet Count 186 X 10*3/uL (140-440); RBC 4.19 X 10*6/uL (4.40-5.60); RDW 13.3 % (11.5-14.5); WBC 8.58 X 10*3/uL (4.50-10.00)
[2023-11-29 16:40] LABS: Chol/HDL Ratio 1.87 Ratio; LDL Cholesterol,Calculated 34.9 mg/dL (0.0-131.0); VLDL Calculation 15.02 mg/dL (5.00-40.00)
[2023-11-29 16:41] LABS: Prostate Specific Antigen 0.73 ng/mL (0.000-6.500); T4, Free (Free Thyroxine) 1.21 ng/dL (0.80-1.80)
[2023-11-29 17:52] LABS: ALT 125 U/L (10-49); AST 116 U/L (14-35); Albumin 4.1 g/dL (3.8-4.9); Albumin/Globulin Ratio 1.95 Ratio (1.60-3.17); Alkaline Phosphatase 227 U/L (41-126); Blood Urea Nitrogen 17.8 mg/dL (9.0-27.0); Calcium 9.8 mg/dL (8.7-10.3); Carbon Dioxide 25.3 mmol/L (21.6-31.8); Chloride 102 mmol/L (96-109); Globulin 2.1 g/dL (1.6-3.3); Glucose 96 mg/dL (70-110); Sodium 139 mmol/L (135-145); Total Bilirubin 2.9 mg/dL (0.3-1.2); Total Protein 6.2 g/dL (6.2-8.2)
== END | disposition home or self-care (01) ==
LOC: LABWHC1 10:35
PROVIDERS: ATTEND Family Medicine
DX: G47.13 Recurrent hypersomnia (principal); E53.8 Deficiency of other specified B group vitamins; F02.80 Dementia in other diseases classified elsewhere, unspecified severity, without behavioral disturbance, psychotic disturbance, mood disturbance, and anxiety; E78.5 Hyperlipidemia, unspecified; N40.1 Benign prostatic hyperplasia with lower urinary tract symptoms; E03.9 Hypothyroidism, unspecified; E55.9 Vitamin D deficiency, unspecified
CPT/HCPCS: 36415; 80053; 80061; 82306; 82607; 84153; 84439; 84443; 84480; 85025

== ENCOUNTER → 2023-12-11 | Outpatient (CLI) | payer MEDICARE ==
--- NOTE | 2023-12-11 11:51 | US ---
EXAMINATION TYPE: US abdomen complete DATE OF EXAM: 12/11/2023 COMPARISON: 09/01/2023 CLINICAL INDICATION: Male, 78 years old with history of K75.9 INFLAMMATORY LIVER DISEASE,UNSPECIFIED; GB surgically absent. TECHNIQUE: Multiple sonographic images of the abdomen are obtained. FINDINGS: EXAM MEASUREMENTS: Liver Length: 14.5 cm CBD: 0.6 cm Spleen: 11.8 cm Right Kidney: 10.4 x 5.0 x 5.6 cm Left Kidney: 10.1 x 4.5 x 5.2 cm MEASUREMENT AND VERIFICATION ENGINEER NOTES: limited due to overlying bowel gas Pancreas: Head and tail obscured by overlying bowel gas Liver: Scanned through ribs. Right anterior hepatic cyst measuring 3.1 x 3.1 x 2.5 cm Gallbladder: Surgically absent Evidence for sonographic Spence's sign: neg CBD: Limited visualization due to bowel gas, upper limits of normal in size, acceptable given patien t's age. Spleen: wnl Right Kidney: No hydronephrosis or masses seen Left Kidney: No hydronephrosis or masses seen, lower pole obscured by overlying bowel gas Upper IVC: wnl Abd Aorta: No AAA visualized a time of scan at portions seen IMPRESSION: No gallstones or biliary ductal dilatation is identified. Incidental benign 3.1 cm right hepatic lobe cyst.
== END | disposition home or self-care (01) ==
LOC: RADUSWWP 08:16
PROVIDERS: ATTEND Internal Medicine Geriatric Medicine
DX: K75.9 Inflammatory liver disease, unspecified (principal); Z90.49 Acquired absence of other specified parts of digestive tract
CPT/HCPCS: 76700

== ENCOUNTER → 2024-05-09 | Outpatient (CLI) | payer MEDICARE ==
[2024-05-09 13:03] LABS: HCT 41.7 % (39.6-50.0); HGB 13.2 g/dL (13.0-17.0); MCH 29.3 pg (27.0-32.0); MCHC 31.7 g/dL (32.0-37.0); MCV 92.5 FL (80.0-97.0); Mean Platelet Volume 10.3 FL (9.5-12.2); NRBC Per 100 WBC 0 X 10*3/uL (0.00-0.01); Platelet Count 187 X 10*3/uL (140-440); RBC 4.51 X 10*6/uL (4.40-5.60); RDW 14.4 % (11.5-14.5); WBC 9.69 X 10*3/uL (4.50-10.00)
[2024-05-09 15:23] LABS: ALT 30 U/L (10-49); AST 30 U/L (14-35); Albumin 4.4 g/dL (3.8-4.9); Alkaline Phosphatase 100 U/L (41-126); Blood Urea Nitrogen 21.8 mg/dL (9.0-27.0); Calcium 9.7 mg/dL (8.7-10.3); Carbon Dioxide 27.2 mmol/L (21.6-31.8); Chloride 104 mmol/L (96-109); Globulin 2.1 g/dL (1.6-3.3); Glucose 106 mg/dL (70-110); LDL Cholesterol,Calculated 61.6 mg/dL (0.0-131.0); Potassium 4.8 mmol/L (3.5-5.5); Sodium 142 mmol/L (135-145); T4, Free (Free Thyroxine) 1.35 ng/dL (0.80-1.80); Total Bilirubin 1.5 mg/dL (0.3-1.2); Total Protein 6.5 g/dL (6.2-8.2); VLDL Calculation 9.56 mg/dL (5.00-40.00)
[2024-05-09 16:45] LABS: Eosinophils # (M) 0.39 X 10*3/uL (0.04-0.35); Lymphocytes # (M) 5.72 X 10*3/uL (0.90-5.00); Monocytes # (M) 0.48 X 10*3/uL (0.20-1.00); Neutrophils % (M) 31 %; Smudge Cells Present
== END | disposition home or self-care (01) ==
LOC: LABWHC1 08:37
PROVIDERS: ATTEND Family Medicine
DX: G47.13 Recurrent hypersomnia (principal); R74.01 Elevation of levels of liver transaminase levels; R91.1 Solitary pulmonary nodule
CPT/HCPCS: 36415; 80053; 80061; 84439; 84443; 85025

== ENCOUNTER → 2024-05-12 | Outpatient (CLI) | payer MEDICARE ==
--- NOTE | 2024-05-12 15:41 | CT ---
EXAMINATION TYPE: CT chest w con DATE OF EXAM: 05/12/2024 COMPARISON: 10/03/2023 HISTORY: Pulmonary nodule, history of thyroid cancer CT DLP: 316.9 mGycm Automated exposure control for dose reduction was used. CONTRAST: CT scan of the chest is performed with IV Contrast, patient injected with 100 cc mL of Isovue 300. FINDINGS: LUNGS: 5 mm pulmonary nodule right upper lobe image 20 is stable. 5 mm pulmonary nodule right lower l obe medially is stable as well. No Nodules or enlarging nodules. Left lung is clear. MEDIASTINUM: There are no greater than 1 cm hilar or mediastinal lymph nodes. No pericardial effusi on is seen. Thoracic aorta is of normal caliber. The heart is not enlarged. UPPER ABDOMEN: Stable cyst left hepatic lobe. OTHER: No additional significant abnormality is seen. IMPRESSION: 1. Stable sub-5 mm pulmonary nodularity right lung. Annual follow-up is recommended.
== END | disposition home or self-care (01) ==
LOC: RADCTMAIN 14:42
PROVIDERS: ATTEND Family Medicine
DX: R91.1 Solitary pulmonary nodule (principal)
CPT/HCPCS: 71260; Q9967

== ENCOUNTER → 2024-06-17 | Outpatient (CLI) | payer MEDICARE ==
--- NOTE | 2024-06-17 17:44 | CA ---
Transthoracic Echo Report Name: Alejandro Velazquez Age: 78 Gender: M : 1945 Exam Date: 06/17/2024 14:57 Exam Location: [place] [facility] Ht (in): 68 Wt (lb): 165 Ordering Physician: Ishan Clay MD Attending/Referring Phys: Robel Griggs [facility] Magnetic Tape Composer Operator Sabi Magdaleno RDCS Procedure CPT: Indications: I48.92 UNSPECIFIED ATRIAL FLUTTER Cardiac Hx: Technical Quality: Good Contrast 1: Total Dose (mL): Contrast 2: Total Dose (mL): MEASUREMENTS (Male / Female) Normal Values 2D ECHO LV Diastolic Diameter PLAX 5.2 cm 4.2 - 5.9 / 3.9 - 5.3 cm LV Systolic Diameter PLAX 4.0 cm IVS Diastolic Thickness 1.1 cm 0.6 - 1.0 / 0.6 - 0.9 cm LVPW Diastolic Thickness 1.0 cm 0.6 - 1.0 / 0.6 - 0.9 cm LV Relative Wall Thickness 0.4 RV Internal Dim ED PLAX 3.2 cm LA Systolic Diameter LX 4.2 cm 3.0 - 4.0 / 2.7 - 3.8 cm LV Diastolic Volume MOD BP 74.8 cm??? 67 - 155 / 56 - 104 cm??? LV Systolic Volume MOD BP 58.1 cm??? 22 - 58 / 19 - 49 cm??? LV Ejection Fraction MOD BP 22.4 % >= 55 % LV Cardiac Index MOD BP 676.7 cm???/min???m??? LV Diastolic Volume MOD 4C 83.8 cm??? LV Systolic Volume MOD 4C 48.9 cm??? LV Ejection Fraction MOD 4C 41.6 % LV Cardiac Index MOD 4C 1409.7 cm???/min???m??? LV Diastolic Length 4C 7.7 cm LV Systolic Length 4C 6.7 cm LV Diastolic Volume MOD 2C 67.2 cm??? LV Systolic Volume MOD 2C 59.2 cm??? LV Ejection Fraction MOD 2C 12.0 % LV Cardiac Index MOD 2C 325.8 cm???/min???m??? LV Diastolic Length 2C 7.7 cm LV Systolic Length 2C 7.8 cm M-MODE Aortic Root Diameter MM 3.5 cm LA Systolic Diameter MM 3.4 cm LA Ao Ratio MM 1.0 AV Cusp Separation MM 2.2 cm DOPPLER TR Peak Velocity 236.4 cm/s TR Peak Gradient 22.4 mmHg Right Ventricular Systolic Press 32.4 mmHg FINDINGS Left Ventricle Left ventricular ejection fraction is estimated at 35-40%. Moderately reduced global left ventricular systolic function. Left ventricular cavity size normal. Left ventricular wall thickness normal. Right Ventricle Mild right ventricular dilatation. Right ventricular systolic pressure within normal limits. Right Atrium Moderate right atrial dilatation. Left Atrium Moderate left atrial dilatation. Mitral Valve Structurally normal mitral valve. [id number] mitral regurgitation. No mitral stenosis. Aortic Valve Trileaflet aortic valve. No aortic valve stenosis. Trace aortic regurgitation. Tricuspid Valve Structurally normal tricuspid valve. [id number] tricuspid regurgitation. No tricuspid stenosis. Pulmonic Valve Structurally normal pulmonic valve. Trace pulmonic regurgitation. Pericardium No pericardial or pleural effusion. Aorta Normal size aortic root and proximal ascending aorta. CONCLUSIONS Moderate LV systolic dysfunction with an ejection fraction of 35-40% Mild to moderate mitral regurgitation Mild to moderate tricuspid regurgitant Previewed by: Dr. Kyrie Velasquez MD (Electronically Signed) Final Date: 17 June 2024 17:44
== END | disposition home or self-care (01) ==
LOC: RADECHMAIN 14:47
PROVIDERS: ATTEND Internal Medicine Geriatric Medicine
DX: I48.92 Unspecified atrial flutter (principal); I34.0 Nonrheumatic mitral (valve) insufficiency
CPT/HCPCS: 93306

== ENCOUNTER 2024-07-07 09:45 | Day surgery (SDC) | payer MEDICARE ==
[2024-07-07] MEDS ORDERED: LACTATED RINGERS 1,000 ML BAG ONE (10:30)
[2024-07-07] MEDS ORDERED: PROPOFOL 10 MG/ML 20 ML VIAL IV ONE (10:30)
--- NOTE | 2024-08-10 10:07 | PCN ---
PROCEDURE NOTE PROCEDURE PERFORMED: Electrical cardioversion. INDICATION: Persistent symptomatic atrial fibrillation with sick sinus syndrome. DESCRIPTION OF PROCEDURE: Under the influence of [id number] intravenous anesthetic agent with the attendance of the anesthesiologist, initial shock of 120 joules was delivered in a synchronized fashion with anterior and posterior patches. The patient did not convert to sinus rhythm and a second shock of 200 joules was delivered in a synchronized fashion. He converted to sinus rhythm, remained hemodynamically stable and neurologically intact. This was a successful electrical cardioversion. MMODL / IJN: [id number] /
== END 2024-07-07 11:47 ==
LOC: OR 09:45
PROVIDERS: ATTEND Internal Medicine Interventional Cardiology
DX: I49.5 Sick sinus syndrome
CPT/HCPCS: 92960

== ENCOUNTER → 2024-08-17 | Outpatient (CLI) | payer MEDICARE ==
[2024-08-17 15:03] LABS: HGB 12.4 g/dL (13.0-17.0); MCH 31.2 pg (27.0-32.0); MCHC 32.6 g/dL (32.0-37.0); MCV 95.7 FL (80.0-97.0); Mean Platelet Volume 10.4 FL (9.5-12.2); NRBC Per 100 WBC 0 X 10*3/uL (0.00-0.01); Platelet Count 135 X 10*3/uL (140-440); RBC 3.97 X 10*6/uL (4.40-5.60); RDW 15.9 % (11.5-14.5); WBC 10.92 X 10*3/uL (4.50-10.00)
[2024-08-17 15:17] LABS: Blood Urea Nitrogen 17.3 mg/dL (9.0-27.0); Chloride 104 mmol/L (96-109); Potassium 4.4 mmol/L (3.5-5.5); Sodium 140 mmol/L (135-145)
[2024-08-17 15:27] LABS: Basophils # (M) 0 X 10*3/uL (0.00-0.10); Eosinophils # (M) 0 X 10*3/uL (0.04-0.35); Lymphocytes # (M) 7.64 X 10*3/uL (0.90-5.00); Monocytes # (M) 0.22 X 10*3/uL (0.20-1.00); Neutrophils # (M) 3.06 X 10*3/uL (1.80-7.70); Neutrophils % (M) 28 %
== END | disposition home or self-care (01) ==
LOC: LABPAT 11:19
PROVIDERS: ATTEND Internal Medicine Interventional Cardiology
DX: Z01.812 Encounter for preprocedural laboratory examination (principal); I49.5 Sick sinus syndrome
CPT/HCPCS: 80051; 82565; 84520; 85025

== ENCOUNTER → 2024-10-15 | Outpatient (CLI) | payer MEDICARE ==
[2024-10-15 11:07] VITALS: BP 146/92; PULSE 68; RESP 16; TEMP 97.5
--- NOTE | 2024-10-15 11:55 | P.SLEEP ---
History of Present Illness DATE: 10/15/2024 CONSULTATION/NEW PATIENT EVALUATION HISTORY OF PRESENT ILLNESS/SLEEP-WAKE EVALUATION: 79-year-old gentleman had been evaluated in the sleep center for possible obstructive sleep apnea hypopnea syndrome. SLEEP SCHEDULE: Usually sleep schedule from 8 PM to 9 AM. FALLING ASLEEP: Sometimes patient has difficulties with falling asleep. DURING SLEEP: Patient snores, suggest significant twitching movements of arms and legs, wakes up from sleep 3 times with 2 episodes of nocturia. Positive history of restless leg symptoms. No history of hypnogogical hallucinations, sleep paralysis, or cataplexy. DURING THE DAY/WAKE STATE: In the morning patient wake up tired, has difficulties to pay attention, falling asleep during the day. Positive history of problems with memory, concentration , depression. [place] sleepiness scale is an extremely high range of 19. Patient takes up to 4 naps during the day. PAST MEDICAL HISTORY: Atrial fibrillation, hyperlipidemia, thyroid cancer, hyperlipidemia, dementia. PAST SURGICAL HISTORY: Cholecystectomy, hernia repair, permanent pacemaker insertion. MEDICATIONS: Please see below. SOCIAL HISTORY: Please see below. FAMILY HISTORY: Please see below. REVIEW OF SYSTEMS: Snoring, multiple awakenings from sleep, sleepiness during the day. No fevers. No double vision. No recent chest pain. No shortness of breath. No abdominal pain. No bleeding episodes. No blood in urine. No seizure episodes. PHYSICAL EXAMINATION: GENERAL: A pleasant patient without any distress. VITAL SIGNS: Please see below, weight 170 pounds, BMI 25.8. HEENT: PERRLA, EOMI. Evaluation of oropharynx showed tongue protrudes midline, low position of soft palate Mallampati 3. NECK: Supple. No JVD. Thyroid is not palpable. 14 inches in circumference. LUNGS: Clear to percussion and to auscultation. Good air exchange. No wheezing or rhonchi. HEART: S1, S2 regular. No murmurs, gallops or rubs. ABDOMEN: Soft and nontender. Bowel sounds are present. No organomegaly appreciated. EXTREMITIES: No clubbing or cyanosis. PAPER BALER: Awake, alert, and oriented x3. Cranial nerves 2 to 7 intact. There is no fasciculation or atrophy noted. No focal deficits observed. ASSESSMENT: 1. Snoring, multiple awakenings from sleep, significant excessive daytime sleepiness, small oropharyngeal airspace, obstructive sleep apnea hypopnea syndrome. 2. Significant amount of twitching movements during the sleep, periodic limb movements. 3. Significant excessive daytime sleepiness with [place] Sleepiness Scale 19 dictate necessity to include hypersomnia and narcolepsy and differential diagnosis. 4. Atrial fibrillation. 5 hyperlipidemia. 6 . History of thyroid cancer treated by radiation therapy. Presently hypothyroidism on levothyroxine supplement. 7. Glaucoma. 8. Status post cholecystectomy. 9 . Status post hernia repair. 10. Status post permanent pacemaker insertion in August 2024. PLAN: 1. Polysomnography for evaluation of patient's breathing during sleep. 2. Following plan after reading sleep study. If sleep study will be negative for physical abnormalities of sleep patient will need multiple sleep latency test. 3. Preferable position during sleep on the side. 4. No driving if patient feels any sleepiness. Patient is aware of civil and criminal liability for unsafe driving. 5. Sleep hygiene with regular sleep time for at least 7.5-8 hours. 6. Watching weight. Thank you very much for referring this patient for consultation. Sincerely, Joe Ny MD, PhD, FAASM. Diplomat of [place] [employer], Sleep Medicine Board by [place] [employer] [place] [employer] Corrosion Control Technician [facility] [place] cc: Katherine Garcia MD Past Medical History Past Medical History: Cancer, Dementia, GERD/Reflux, Thyroid Disorder Additional Past Medical History / Comment(s): large fluid collection in scrotum,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-has difficulty swallowing at times, BRADYCARDIA, INPT 07/28/23-07/30/23-FOR N/V/D, WEAK, DIZZY, SOB. celiac History of Any Multi-Drug Resistant Organisms: None Reported Past Surgical History: Hernia Repair Additional Past Surgical History / Comment(s): tumor removed from throat, hydrocele, sreedhar cataract, LT SPERMATOCELECTOMY, COLONOSCOPY, Past Anesthesia/Blood Transfusion Reactions: No Reported Reaction, Motion Sickness Additional Past Anesthesia/Blood Transfusion Reaction / Comment(s): had ativan for MRI which made him confused. Past Psychological History: Depression Additional Psychological History / Comment(s): DEMENTIA Smoking Status: Former smoker Past Alcohol Use History: None Reported Additional Past Alcohol Use History / Comment(s): quit smoking 50 yrs ago Past Drug Use History: None Reported - Past Family History Mother Family Medical History: Coronary Artery Disease (CAD) Additional Family Medical History / Comment(s): CABG - in ICU afterwards Brother(s) Family Medical History: Myocardial Infarction (IA) Additional Family Medical History / Comment(s): older brother passed with cardiomyopathy Medications and Allergies Home Medications Medication Instructions Recorded Confirmed Type Citalopram Hydrobromide [CeleXA] 30 mg PO DAILY 05/03/19 10/22/23 History Memantine [Namenda] 10 mg PO BID 09/11/22 10/22/23 History Cyanocobalamin (Vitamin B-12) 2,500 mcg PO DAILY 07/28/23 10/15/24 History [Vitamin B-12] Levothyroxine Sodium [Synthroid] 125 mcg PO DAILY 07/28/23 10/15/24 History Pantoprazole [Protonix] 40 mg PO BID 07/28/23 10/22/23 History amLODIPine [Norvasc] 10 mg PO DAILY #30 tab 07/30/23 10/22/23 Rx Fluticasone Propion/Salmeterol 1 puff INHALATION DAILY 09/01/23 10/22/23 History [Fluticasone-Salmeterol 250-50] Levothyroxine Sodium [Synthroid] 62.5 mcg PO SUWE 10/14/23 10/15/24 History Acetaminophen Tab [Tylenol] 650 mg PO Q6H #30 tab 10/22/23 Rx Docusate [Colace] 100 mg PO BID #20 capsule 10/22/23 Rx Ibuprofen [Motrin] 600 mg PO Q6HR PRN #40 tab 10/22/23 Rx oxyCODONE HCL [OxyIR] 5 mg PO Q6H PRN 3 Days #10 tab 10/22/23 Rx Apixaban [Eliquis] 5 mg PO BID 10/15/24 10/15/24 History Atorvastatin [Lipitor] 20 mg PO DAILY 10/15/24 10/15/24 History Latanoprost [Latanoprost 0.005%] 1 drop RIGHT EYE DAILY 10/15/24 10/15/24 History Allergies Allergy/AdvReac Type Severity Reaction Status Date / Time lorazepam [From Ativan] AdvReac Confusion Verified 10/22/23 07:40 Physical Exam Vitals: Vital Signs Temp Pulse Resp BP Pulse Ox 10/15/24 11:05 97.5 F L 68 16 146/92 97 Intake and Output 10/14/24 10/15/24 10/15/24 22:59 06:59 14:59 Other: Weight 77.111 kg Sleep Note - Sleep Data ESS Total: 19 - Sleep Note Sleep Note: Temperature: 97.5 F Pulse Rate: 68 Respiratory Rate: 16 Blood Pressure: 146/92 SpO2: 97 Height: 5 ft 8 in Weight: 77.111 kg BMI: Neck Circumference: 14
== END ==
LOC: 3 N SLEEP 10:30
PROVIDERS: ATTEND Internal Medicine
DX: G47.33 Obstructive sleep apnea (adult) (pediatric) (principal); G47.10 Hypersomnia, unspecified; I48.91 Unspecified atrial fibrillation; E78.5 Hyperlipidemia, unspecified; H40.9 Unspecified glaucoma; E03.9 Hypothyroidism, unspecified; Z98.890 Other specified postprocedural states; Z90.49 Acquired absence of other specified parts of digestive tract; Z85.850 Personal history of malignant neoplasm of thyroid; Z92.3 Personal history of irradiation; Z79.890 Hormone replacement therapy; Z95.0 Presence of cardiac pacemaker; Z88.8 Allergy status to other drugs, medicaments and biological substances; Z79.01 Long term (current) use of anticoagulants; Z87.891 Personal history of nicotine dependence
CPT/HCPCS: 99211

== ENCOUNTER 2024-11-03 19:22 | Outpatient (CLI) | payer MEDICARE ==
--- NOTE | 2024-11-04 13:34 | P.PCN ---
Description of Procedure: POLYSOMNOGRAPHY REPORT PROCEDURE(S)/DATE(S): Polysomnography 11/03/2024 CLINICAL: Patient has been seen in the sleep center for evaluation of obstructive sleep apnea-hypopnea syndrome. Please see my consultation. Sleep study has been done for evaluation of patient breathing during the sleep. PROCEDURE: The standard montage for clinical polysomnography included the electroencephalogram, the electrooculogram, the mentalis surface electromyography and Lead II cardiography. The respiratory battery consisted of measurements of nasal/buccal air flow, pressure transducer measurements from nose, thoracic and/or abdominal effort and intercostal surface electromyography. Video monitoring has been done to check for any parasomnia events. Nocturnal oxyhemoglobin saturations were obtained by finger oximetry. Step-arechiga titration with positive airway pressure was utilized to control the respiratory events, if necessary. RESULTS: During the diagnostic sleep study sleep efficiency was extremely short 45.4%. Latency to sleep onset was extremely long 127.5 min. Sleep architecture showed stage NI was extremely high at 52.4%, Delta sleep was absent 0%, REM sleep was decreased to 11.3%. Respiratory channel showed 0 obstructive apneas, 0 mixed apneas, 0 central apneas, 0 hypopneas with lowest oxygen level 90%. Total apnea hypopnea index was 0. Heart rate was in the range between 55 and 65, average 59. EMG showed 39.4 periodic limb movements per hour with 0.5 micro-arousals per hour. IMPRESSIONS: 1. No significant respiratory abnormalities have been documented during the sleep study, normal oxygenation during sleep. 2. Significant periodic limb movements have been documented. 3. Patient presents with symptoms of significant excessive daytime sleepiness with [place]ass Sleepiness Scale and extremely high range of 19. Please see other impressions from consultation PLAN: 1. I will see patient for follow-up visit to explain results of the test and recommendations. 2. Patient will be started on medications to prevent periodic limb movements. 3. Sleep hygiene with regular time in bed for at least 7-1/2 hours. 4. No driving if feeling sleepiness. 5. Please check iron profile including ferritin level. Low level of iron may increase the risk for periodic limb movements. 6. Patient will need multiple sleep latency test if no improvements of her alertness while periodic limb movements movements will be treated. Thank you very much for allowing me to participate in the management of your patient. Sincerely, Joe Ny MD, PhD, FAASM. Diplomat of [place] [employer], Sleep Medicine Board by [place] [employer] [facility] [place] cc: Katherine Garcia MD
== END 2024-11-04 06:05 | disposition home or self-care (01) ==
LOC: 3 N SLEEP 19:22
PROVIDERS: ATTEND Internal Medicine
DX: G47.61 Periodic limb movement disorder (principal); Z88.8 Allergy status to other drugs, medicaments and biological substances; Z87.891 Personal history of nicotine dependence
CPT/HCPCS: 95810

== ENCOUNTER → 2024-11-26 | Outpatient (CLI) | payer MEDICARE ==
[2024-11-26 17:13] VITALS: BP 139/91; PULSE 64; RESP 16; TEMP 97.6
== END ==
LOC: 3 N SLEEP 16:53
PROVIDERS: ATTEND Internal Medicine
DX: G47.33 Obstructive sleep apnea (adult) (pediatric) (principal); Z88.8 Allergy status to other drugs, medicaments and biological substances; Z87.891 Personal history of nicotine dependence
CPT/HCPCS: 99212

== ENCOUNTER → 2024-12-21 | Outpatient (CLI) | payer MEDICARE ==
[2024-12-21 19:18] LABS: T4, Free (Free Thyroxine) 1.54 ng/dL (0.80-1.80)
== END | disposition home or self-care (01) ==
LOC: LABWHC1 13:10
PROVIDERS: ATTEND Family Medicine
DX: E03.9 Hypothyroidism, unspecified (principal)
CPT/HCPCS: 36415; 84439; 84443

== ENCOUNTER → 2025-05-26 | Outpatient (CLI) | payer MEDICARE ==
[2025-05-26 13:16] VITALS: BP 99/61; PULSE 69; RESP 16; TEMP 97.8
--- NOTE | 2025-05-26 13:41 | P.PROGSL ---
Subjective DATE: 05/26/2025 FOLLOW UP VISIT. Patient returned to sleep center for follow-up visit to discuss results of polysomnogram and recommendations. I discussed results of sleep study with patient and family in details. No abnormalities of respiration have been documented. Significant periodic limb movements have been documented. Patient has episodes of out of dream movements during sleep at home and had episodes of sleepwalking. . [place] sleepiness scale is in very high range of 17. MEDICATIONS:1. Levothyroxine 125 mcg once a day 2. Pramipexole 0.125 mg 1 to 2 tablets at bedtime 3. Eliquis 5 mg once a day 4. Citalopram 20 mg once a day 5. Memantine 10 mg once a day 6. Atorvastatin 20 mg once a day 7. Melatonin 8. Vitamin D During physical exam: GENERAL: A pleasant patient without any distress. VITAL SIGNS: Please see below. HEENT: [place]. NECK: Supple. No JVD. LUNGS: Clear to percussion and to auscultation. Good air exchange. No wheezing or rhonchi. HEART: S1, S2 regular. ABDOMEN: Soft and nontender. EXTREMITIES: No clubbing or cyanosis. STATE [employer]AL RELATIONS DEPUTY DIRECTOR: Awake, alert, and oriented x3. No focal deficit. Impressions: 1. No significant respiratory abnormalities have been documented during the polysomnogram 2. Significant periodic limb movements have been documented during the sleep study. Patient is on treatment with pramipexole, but continues some movements during sleep. 3. History of sleepwalking episodes. Possibly out of dream movements. 4. Atrial fibrillation. 5. Hyperlipidemia. 6. History of thyroid cancer treated by radiation therapy, on levothyroxine supplement. 7. Glaucoma. 8. Status post cholecystectomy. 9. Status post hernia repair. 10 status post permanent pacemaker insertion Plan: 1. Patient will continue treatment with pramipexole 0.125 mg 1 to 2 tablets at bedtime. Additionally patient will start clonazepam 0.5 mg at bedtime with a goal to prevent any abnormal movements during sleep. 2. Sleep hygiene with regular time in bed for at least 8 hours. 3. Patient continued to have symptoms of excessive daytime sleepiness during the day, may consider multiple sleep latency test. 4. Precautions related to driving. No driving if feel any sleepiness. Patient is aware about civil and criminal liability for unsafe driving, promised to follow recommendations. 5. Follow up visit in 2 months or earlier if patient has any problems. Thank you very much for allowing me to participate in the management of your patient. Joe Ny MD, PhD, FAASM. Diplomat of [place] [employer], Sleep Medicine Board by [place] [employer] Heating And Ventilating Tender [facility] [place] cc: Katherine Garcia MD Objective - Vital Signs Vital Signs: Vital Signs Temp 97.8 F 05/26/25 13:13 Pulse 69 05/26/25 13:13 Resp 16 05/26/25 13:13 BP 99/61 05/26/25 13:13 Pulse Ox 97 05/26/25 13:13 FiO2 Intake & Output 05/25/25 05/26/25 05/26/25 18:59 06:59 18:59 Weight 74.503 kg Home Medications: Home Medications Medication Instructions Recorded Confirmed Type Citalopram Hydrobromide [CeleXA] 30 mg PO DAILY 05/03/19 10/22/23 History Memantine [Namenda] 10 mg PO BID 09/11/22 10/22/23 History Cyanocobalamin (Vitamin B-12) 2,500 mcg PO DAILY 07/28/23 10/15/24 History [Vitamin B-12] Levothyroxine Sodium [Synthroid] 125 mcg PO DAILY 07/28/23 10/15/24 History Pantoprazole [Protonix] 40 mg PO BID 07/28/23 10/22/23 History amLODIPine [Norvasc] 10 mg PO DAILY #30 tab 07/30/23 10/22/23 Rx Fluticasone Propion/Salmeterol 1 puff INHALATION DAILY 09/01/23 10/22/23 History [Fluticasone-Salmeterol 250-50] Levothyroxine Sodium [Synthroid] 62.5 mcg PO SUWE 10/14/23 10/15/24 History Acetaminophen Tab [Tylenol] 650 mg PO Q6H #30 tab 10/22/23 Rx Docusate [Colace] 100 mg PO BID #20 capsule 10/22/23 Rx Ibuprofen [Motrin] 600 mg PO Q6HR PRN #40 tab 10/22/23 Rx oxyCODONE HCL [OxyIR] 5 mg PO Q6H PRN 3 Days #10 tab 10/22/23 Rx Apixaban [Eliquis] 5 mg PO BID 10/15/24 10/15/24 History Atorvastatin [Lipitor] 20 mg PO DAILY 10/15/24 10/15/24 History Latanoprost [Latanoprost 0.005%] 1 drop RIGHT EYE DAILY 10/15/24 10/15/24 History
== END ==
LOC: 3 N SLEEP 13:01
PROVIDERS: ATTEND Internal Medicine
DX: G47.61 Periodic limb movement disorder (principal); I48.91 Unspecified atrial fibrillation; E78.5 Hyperlipidemia, unspecified; H40.9 Unspecified glaucoma; Z85.850 Personal history of malignant neoplasm of thyroid; Z92.3 Personal history of irradiation; Z79.890 Hormone replacement therapy; Z90.49 Acquired absence of other specified parts of digestive tract; Z98.890 Other specified postprocedural states; Z95.0 Presence of cardiac pacemaker; Z87.891 Personal history of nicotine dependence; Z88.8 Allergy status to other drugs, medicaments and biological substances
CPT/HCPCS: 99212